=== PATIENT | male | born 1955 | race Caucasian/White ===

== ENCOUNTER 2021-04-01 08:53 | Observation (INO) | payer OTHER, SELFPAY ==
[2021-04-01] VITALS (16 sets, daily range): BP systolic 96–122; BP diastolic 52–74; PULSE 81–122; RESP 13–22; TEMP 36.4–39.2; O2SAT 87–97; BMI 32.7; BMI 32.9
--- NOTE | 2021-04-01 09:05 | EKG12_ITS ---
Test Reason : FEVER, SOB Blood Pressure : / mmHG Vent. Rate : 117 BPM Atrial Rate : 117 BPM P-R Int : 152 ms QRS Dur : 112 ms QT Int : 312 ms P-R-T Axes : 035 006 023 degrees QTc Int : 435 ms Sinus tachycardia Otherwise normal ECG Confirmed by LAURIE HERNANDEZ, NILDA ([id number]), primer expeditor and drier DEVNY ANTUNEZ ([id number]) on 04/03/2021 11:40:54 A M Referred By: ADRY Confirmed By:MEENA SULLIVAN MD
--- NOTE | 2021-04-01 09:07 | NURSING ---
NO OLD EKGS
--- NOTE | 2021-04-01 09:08 | EDS_ITS ---
HPI History of Present Illness Chief Complaint: Fever Informant: patient and spouse/S.O. Onset/Context/Timing Onset: Days Context: Gradual Onset Current Severity: Moderate Maximum Severity: Moderate Narrative Narrative: Patient presents secondary to general malaise and rigors. He reports being ill the past couple of days. He said shortness of breath with mild cough. does report a fever up into the 101 range at home. EMS reportedly had a temperature of 104. PFSH PFS Medical History Arthritis Home Medications NK 04/01/21 [History Last Taken Unknown] Allergy/AdvReac Type Severity Reaction Status Date / Time No Known Allergies Allergy Verified 04/01/21 08:54 Social History Smoking Status: Smoker, status unknown ROS ROS ED Constitutional Constitutional ED: Reports chills and fever(s) Eyes Eyes: Denies change in vision ENT ENT ED: Denies sore throat Cardiovascular Cardiovascular: Denies chest pain Respiratory/Chest Respiratory/Chest: Reports cough and dyspnea Gastrointestinal Gastrointestinal: Denies abdominal pain, diarrhea, nausea or vomiting Genitourinary Genitourinary ED: Denies dysuria Musculoskeletal Musculoskeletal: Denies back pain Integumentary Denies rash Neurologic Neurologic: Denies headache(s) or weakness Psychiatric Psychiatric: Denies anxiety or depression Endocrine Endocrinology: Denies polydipsia or polyuria Allergic/Immunologic Allergic/Immunologic ED: Denies urticaria EXAM Physical Exam Const Vital Signs: 04/01/21 08:54 04/01/21 08:58 04/01/21 10:13 Temperature 102.6 F H 102.6 F H 101.2 F H Temperature Source Oral Oral Oral Pulse Rate 120 H 122 H 109 H Respiratory Rate 20 H 20 H 17 Respiratory Effort Short of Breath Respiratory Pattern Normal Blood Pressure 122/59 H 122/59 H 104/52 L Blood Pressure Mean 80 80 69 Pulse Ox 95 94 94 Oxygen Delivery Method Room Air Room Air Room Air Oxygen Flow Rate (L/min) 04/01/21 10:54 04/01/21 10:59 04/01/21 11:00 Temperature 101.2 F H 99.8 F H Temperature Source Oral Oral Pulse Rate 103 H 101 H Respiratory Rate 20 H 20 H Respiratory Effort Respiratory Pattern Blood Pressure 103/61 108/59 L Blood Pressure Mean 75 75 Pulse Ox 90 87 95 Oxygen Delivery Method Room Air Room Air Room Air Oxygen Flow Rate (L/min) 04/01/21 12:00 04/01/21 13:00 Temperature 98.8 F 98.6 F Temperature Source Temporal Temporal Pulse Rate 90 91 Respiratory Rate 22 H 19 H Respiratory Effort Respiratory Pattern Blood Pressure 106/68 106/66 Blood Pressure Mean 80 79 Pulse Ox 94 96 Oxygen Delivery Method Venturi Mask Room Air Oxygen Flow Rate (L/min) 2 Positive well nourished and well developed General Appearance ED: well developed HEENT Reports normocephalic and head/scalp atraumatic Eyes PERRL and EOMs intact bilaterally Neck supple Chest Wall inspection of chest normal and palpation of chest normal Resp normal respiratory effort and clear to auscultation bilaterally Cardio regular rate and regular rhythm GI normal to inspection, nondistended, normoactive bowel sounds Palpation: soft Back/Spine no CVA tenderness Extremity normal to inspection Neuro oriented x3 and no sensory deficits noted Sensorium / Orientation: alert Motor Exam: strength 5/5 throughout Psych mental status grossly normal Skin no rashes or lesions noted MDM MDM MDM Narrative Medical decision making narrative: Patient is placed on quality assurance monitor final and observed. Patient's oxygen saturation does drop to 88% and is placed on nasal cannula. Lab work, urinalysis, Covid test, chest x-ray obtained. Lab Data Attestation: I reviewed the patient's lab results. Labs: Laboratory Results - last 24 hr 04/01/21 04/01/21 04/01/21 09:00 09:00 09:00 WBC 1.9 L RBC 5.13 Hgb 15.0 Hct 45.4 MCV 88.5 MCH 29.2 MCHC 33.0 RDW Std Deviation 43.5 RDW Coeff of [place] 13.2 Plt Count 127 L MPV 10.2 Immature Gran % (Auto) 1.000 H Neut % (Auto) 62.9 Lymph % (Auto) 33.0 [place] % (Auto) 2.1 Eos % (Auto) 0.5 Baso % (Auto) 0.5 Absolute Neuts (auto) 1.2 L Absolute Lymphs (auto) 0.64 L Nucleated RBC % 0 Atypical Lymphocytes 1+ D-Dimer Quant (PE/DVT) 1.74 H* Sodium 137 Potassium 3.6 Chloride 105 Carbon Dioxide 22.0 Anion Gap 10 BUN 24 H Creatinine 1.09 Estim Creat Clear Calc 75.34 Est GFR (MDRD) Af Amer 87 Est GFR (MDRD) Non-Af 72 BUN/Creatinine Ratio 22.0 H Glucose 113 H Lactic Acid Calcium 8.5 Total Bilirubin 2.40 H AST 20 ALT 37 Alkaline Phosphatase 64 Total Protein 7.2 Albumin 3.7 Globulin 3.5 Albumin/Globulin Ratio 1.1 Urine Color Urine Clarity Urine pH Ur Specific [place] Urine Protein Urine Glucose (UA) Urine Ketones Urine Occult Blood Urine Nitrite Urine Bilirubin Urine Urobilinogen Ur Leukocyte Esterase Urine RBC Urine WBC Ur Squamous Epith Cells Urine Bacteria Urine Mucus COVID-19 (YOSELYN) 04/01/21 04/01/21 04/01/21 09:00 09:50 11:45 WBC RBC Hgb Hct MCV MCH MCHC RDW Std Deviation RDW Coeff of [place] Plt Count MPV Immature Gran % (Auto) Neut % (Auto) Lymph % (Auto) [place] % (Auto) Eos % (Auto) Baso % (Auto) Absolute Neuts (auto) Absolute Lymphs (auto) Nucleated RBC % Atypical Lymphocytes D-Dimer Quant (PE/DVT) Sodium Potassium Chloride Carbon Dioxide Anion Gap BUN Creatinine Estim Creat Clear Calc Est GFR (MDRD) Af Amer Est GFR (MDRD) Non-Af BUN/Creatinine Ratio Glucose Lactic Acid 2.6 H* Calcium Total Bilirubin AST ALT Alkaline Phosphatase Total Protein Albumin Globulin Albumin/Globulin Ratio Urine Color Yellow Urine Clarity Sl. Cloudy Urine pH 6.5 Ur Specific [place] 1.005 Urine Protein 30 H Urine Glucose (UA) Normal Urine Ketones Negative Urine Occult Blood 10 H Urine Nitrite Negative Urine Bilirubin Negative Urine Urobilinogen 1 H Ur Leukocyte Esterase 500 H Urine RBC 0-5 SEEN Urine WBC 10-25 SEEN Ur Squamous Epith Cells 0 SEEN Urine Bacteria 0 SEEN Urine Mucus 0 SEEN COVID-19 (YOSELYN) Not Detected 04/01/21 13:25 WBC RBC Hgb Hct MCV MCH MCHC RDW Std Deviation RDW Coeff of [place] Plt Count MPV Immature Gran % (Auto) Neut % (Auto) Lymph % (Auto) [place] % (Auto) Eos % (Auto) Baso % (Auto) Absolute Neuts (auto) Absolute Lymphs (auto) Nucleated RBC % Atypical Lymphocytes D-Dimer Quant (PE/DVT) Sodium Potassium Chloride Carbon Dioxide Anion Gap BUN Creatinine Estim Creat Clear Calc Est GFR (MDRD) Af Amer Est GFR (MDRD) Non-Af BUN/Creatinine Ratio Glucose Lactic Acid 1.9 Calcium Total Bilirubin AST ALT Alkaline Phosphatase Total Protein Albumin Globulin Albumin/Globulin Ratio Urine Color Urine Clarity Urine pH Ur Specific [place] Urine Protein Urine Glucose (UA) Urine Ketones Urine Occult Blood Urine Nitrite Urine Bilirubin Urine Urobilinogen Ur Leukocyte Esterase Urine RBC Urine WBC Ur Squamous Epith Cells Urine Bacteria Urine Mucus COVID-19 (YOSELYN) Radiography Chest X-Ray - ED: 1 View, Read by ED Physician and Chronic Changes Diagnostic Testing: Radiology Impression Chest X-Ray 04/01/21 09:18 IMPRESSION: Normal x-ray examination of the chest. Electronically Signed: Praveen Storey MD at 9:31 EDT Tel , Service support , Chest CTA 04/01/21 09:35 IMPRESSION: Normal CTA chest examination, without a demonstrated pulmonary embolism or arterial dissection. Electronically Signed: Praveen Storey MD at 11:04 EDT Tel , Service support , EKG Initial EKG: Attestation: I personally reviewed and interpreted this EKG as follows: Interpretation: Sinus Tachycardia (Sinus tach at 117. No acute ST change.) Treatment and Re-Evaluation Comments:: Test results discussed with the patient. Rapid Covid is negative and he does get a PCR test that also returns negative. D-dimer is elevated. CTA of the chest reveals no acute findings. Urinalysis does reveal white cells but no bacteria. Culture is sent and he is given a dose of Rocephin. Patient was reluctant to be admitted to the hospital. He was taken off of oxygen and immediately dropped his sat to 87% while still lying in bed. At this point he will stay in the hospital for further treatment. I will speak with the hospitalist. Discharge Plan Triage Chief Complaint: Fever ED Provider: Kandy Torres Dx/Rx/DC Orders Clinical Impression: Hypoxia, Acute viral syndrome Prescriptions: No Action NK RF: 0 Primary Care Provider: Phil House Referrals: Phil House MD [Primary Care Provider] - Disposition Disposition: Acute Care Hospital [facility]
--- NOTE | 2021-04-01 09:18 | RAD_ITS ---
STUDY: X-RAY CHEST REASON FOR EXAM: Male, 65 years old. cough TECHNIQUE: Single AP portable view of the chest. COMPARISON: None. FINDINGS: The lungs are clear and expanded. There is no demonstrated pleural abnormality. Normal size heart. Normal mediastinum and enzo. Normal visualized pulmonary arteries. Normal visualized aortic arch and descending thoracic aorta. Normal visualized thoracic spine. Normal visualized ribs, clavicles, and shoulders. There is no demonstrated abnormality of the visualized soft tissue structures of the upper abdomen. RAD/Chest 1 View (Portable) IMPRESSION: Normal x-ray examination of the chest. Electronically Signed: Praveen Storey MD at 9:31 EDT Tel , Service support ,
[2021-04-01 09:21] LABS: Absolute Lymphocyte Count 0.64 X10^3/uL (0.83-4.51); Absolute Neutrophil Count 1.2 X10^3/uL (2.0-7.7); Basophil# 0.01 X10^3/uL; Basophil% 0.5 % (0-1); Eosinophil# 0.01 X10^3/uL; Eosinophils% 0.5 % (0-5); Hematocrit 45.4 % (40-54); Lymphocyte # 0.64 X10^3/ul (0.83-4.51); Mean Corpuscular Hgb 29.2 pg (27.0-32.0); Mean Corpuscular Volume 88.5 fL (80-94); Mean Platelet Vol. 10.2 fl (6.2-12.0); Monocyte# 0.04 X10^3/uL; Monocyte% 2.1 % (0-10); NRBC Flagged by Analyzer 0 % (0-5); Neutrophil # 1.22 X10^3/uL (2.7-7.7); Neutrophil % 62.9 % (47-70); POSITIVE MORPHOLOGY YES; Platelet Count 127 K/mm3 (150-450); RBC Distribution Width CV 13.2 % (11.6-14.6); RBC Distribution Width SD 43.5 fl (35.1-43.9); Red Blood Count 5.13 M/mm3 (4.6-6.2); White Blood Count 1.9 K/mm3 (4.4-11.0)
[2021-04-01 09:22] LABS: Differential Indicated SCAN CRITERIA MET
[2021-04-01 09:31] LABS: D-Dimer Quantitative (DVT/PE) 1.74 FEU/ug/m (0.27-0.49)
[2021-04-01 09:33] LABS: ALB/GLOB Ratio 1.1 RATIO (0.9-2.4); AST(SGOT) 20 U/L (15-37); Alanine Aminotransfer ALT/SGPT 37 U/L (16-61); Albumin, Serum 3.7 g/dL (3.2-5.0); Alkaline Phosphatase 64 U/L (45-117); Anion Gap 10 (5-15); BUN 24 mg/dL (7-18); Calcium,Total 8.5 mg/dL (8.5-10.1); Chloride 105 mmol/L (98-107); Creatinine, Serum 1.09 mg/dL (0.70-1.30); EST Glomerular Filtration Rate 72 mL/min (>60); Est Glom Filt Rate - Afr Amer 87 mL/min (>60); Estimated Creatinine Clearance 75.34 ml/min; Globulin 3.5 g/dL (2.2-4.2); Glucose 113 mg/dL (74-106); Potassium 3.6 mmol/L (3.5-5.1); Protein, Total 7.2 g/dL (6.4-8.2); Sodium Level 137 mmol/L (136-145)
--- NOTE | 2021-04-01 09:35 | CT_ITS ---
STUDY: CTA CHEST REASON FOR EXAM: Male, 65 years old. sob RADIATION DOSAGE (If Supplied By Facility): CTDIvol = ( 16.17 ) mGy, DLP = ( 600.35 ) mGycm TECHNIQUE: The examination was performed with the intravenous administration of IV 100mL Isovue-370. Post-processing of the angiographic images was performed, with multiplanar reformation and 3D reconstruction. Individualized dose optimization techniques were used for this CT. COMPARISON: Chest x-ray earlier today FINDINGS: Normal enhancement of the main pulmonary artery and right and left pulmonary arteries. Normal enhancement of the bilateral peripheral pulmonary arteries. There is no demonstrated pulmonary embolism. Normal thoracic aorta and visualized great vessels. There is no demonstrated aortic dissection. Normal heart and pericardium. Normal mediastinum. Normal hilar regions. Normal visualized trachea and bronchi. The lungs are well expanded. Normal pulmonary parenchyma. Normal pleura. Normal chest wall structures. Normal osseous structures. Normal visualized upper abdomen. CT/CTA Chest W/WO Contrast IMPRESSION: Normal CTA chest examination, without a demonstrated pulmonary embolism or arterial dissection. Electronically Signed: Praveen Storey MD at 11:04 EDT Tel , Service support ,
--- NOTE | 2021-04-01 09:35 | ED.RN ---
MD and nurse notified of d-dimer of 1.74.
[2021-04-01 09:38] LABS: Atypical Lymphocyte 1+ %
[2021-04-01 10:16] LABS: Lactic Acid 2.6 mmol/L (0.4-1.9)
[2021-04-01 11:52] LABS: Bacteria 0 SEEN /hpf (None Seen); Mucous, Urine 0 SEEN /hpf (<or=2+); Squamous Epithelial Cells - UA 0 SEEN /hpf (0-5)
[2021-04-01 11:53] LABS: Color, Urine Yellow (Yellow); Glucose, Dipstick Normal (Normal); Ketone-Dipstick Negative (Negative); Leukocyte Esterase-Dipstick 500 /ul (Negative); Nitrite-Dipstick Negative (Negative); Occult Blood-Urine 10 /ul (Negative); Protein-Dipstick 30 mg/dl (Negative); Specific Gravity, Urine 1.005 (1.002-1.030); Urine Bilirubin Dipstick Negative (Negative); Urine Clarity Sl. Cloudy (Clear); Urine Urobilinogen 1 mg/dl (Normal); Urine pH 6.5 (5.0 - 8.0)
[2021-04-01 12:03] LABS: Red Blood Cells-Urine 0-5 SEEN /hpf (0-5); White Blood Cells 10-25 SEEN /hpf (0-5)
[2021-04-01 13:10] LABS: Reflex Lactate? Y
[2021-04-01] MEDS: Ceftriaxone 1 GM/50 ML BAG IV (13:17)
[2021-04-01] MEDS: 0.9% Normal Saline 1,000 ML 999 ML IV (13:20)
[2021-04-01 14:00] LABS: Lactic Acid 1.9 mmol/L (0.4-1.9)
--- NOTE | 2021-04-01 14:28 | ED.RN ---
O2 TURNED OFF WHILE PT RESTING IN BED, SPO2 DROPPED TO 87% ON ROOM AIR WHILE PT RESTING IN BED. MD EDWARD.
--- NOTE | 2021-04-01 14:55 | HP.PCM.HOS_ITS ---
HPI - General General Date of Admission: 04/01/21 HPI Narrative MAIA ESTRADA, is a 65 M with a PMH as outlined who presents via the Ed on 04/01/2021 with a complaint of generalised malaise and rigors over the past few days, with associated fever and shortness of breath with a mild cough. He also complained of burning and pain with urination. When EMS saw him, temperature was 104F, but had come down to 102.4F. Patient was short of breath, and was hypoxic with sats dropping down to the 80s. Review of systems was otherwise negative. He had a rapid Covid test which was negative and PCR test was also negative. D- dimer was elevated but CT of the chest was negative for any PE. Labs showed hemoglobin of 15 with WBC of 1.9 and platelets of 127 with lymphopenia. Chemistry showed sodium of 137 and chloride of 105. Total bilirubin was 2.4. UA showed leukocyte esterase of 500 and WBC of 10-25 but no bacteria. Respiratory panel was pending. He has been admitted for acute viral syndrome with hypoxia as well as UTI. [facility] Medical History (Updated 04/01/21 @ 14:[address] Kandy Torres MD) Arthritis Home Medications acetaminophen [Tylenol Extra Strength] 1,000 mg PO DAILY PRN 04/01/21 [History Last Taken 04/01/21] cyanocobalamin (vitamin B-12) 1,000 mcg PO DAILY 04/01/21 [History Last Taken 04/01/21] glucos sul [id number] [Glucosamine Chondroitin] 1 cap PO DAILY 04/01/21 [History Last Taken 04/01/21] ibuprofen 400 mg PO DAILY PRN 04/01/21 [History Last Taken 04/01/21] turmeric root extract 500 mg PO DAILY 04/01/21 [History Last Taken 04/01/21] Allergy/AdvReac Type Severity Reaction Status Date / Time No Known Allergies Allergy Verified 04/01/21 08:54 Surgical History (Updated 04/01/21 @ 17:18 by Casandra Laboy) History of carpal tunnel release of both wrists Social History Smoking Status: Never smoker ROS Constitutional Constitutional: Reports anorexia, chills, fatigue, fever(s) and malaise; Denies change in weight Eyes Eyes: Denies blurry vision ENT HEENT: Reports abnormal hearing and nasal congestion; Denies dysphagia, headache(s) or nasal discharge Cardiovascular Cardiovascular: Denies chest pain, dyspnea on exertion, lightheadedness, orthopnea, palpitations, paroxysmal nocturnal dyspnea or rapid heart rate Respiratory/Chest Respiratory/Chest: Reports dyspnea, shortness of breath at rest and shortness of breath with exertion; Denies cough, excessive phlegm production, hemoptysis, productive cough or wheezing Gastrointestinal Gastrointestinal: Denies abdominal pain, coffee ground emesis, constipation, diarrhea, dyspepsia, nausea or vomiting Genitourinary Genitourinary: Denies burning urination Musculoskeletal Musculoskeletal: Denies arthralgias, joint pain, joint stiffness or joint swelling Neurologic Neurologic: Denies abnormal speech, confusion, dizziness, focal weakness, headache(s), numbness or seizure-like activity Psychiatric Psychiatric: Denies anxiety Endocrine Endocrinology: Denies change in body appearance Hematologic/Lymphatic Hematologic/Lymphatic: Denies anemia Vital Signs Vital Signs Vital Signs: 04/01/21 08:54 04/01/21 08:58 04/01/21 10:13 Temperature 102.6 F H 102.6 F H 101.2 F H Temperature Source Oral Oral Oral Pulse Rate 120 H 122 H 109 H Respiratory Rate 20 H 20 H 17 Respiratory Effort Short of Breath Respiratory Pattern Normal Blood Pressure 122/59 H 122/59 H 104/52 L Blood Pressure Mean 80 80 69 Pulse Ox 95 94 94 Oxygen Delivery Method Room Air Room Air Room Air Oxygen Flow Rate (L/min) 04/01/21 10:54 04/01/21 10:59 04/01/21 11:00 Temperature 101.2 F H 99.8 F H Temperature Source Oral Oral Pulse Rate 103 H 101 H Respiratory Rate 20 H 20 H Respiratory Effort Respiratory Pattern Blood Pressure 103/61 108/59 L Blood Pressure Mean 75 75 Pulse Ox 90 87 95 Oxygen Delivery Method Room Air Room Air Room Air Oxygen Flow Rate (L/min) 04/01/21 12:00 04/01/21 13:00 04/01/21 14:00 Temperature 98.8 F 98.6 F 98.8 F Temperature Source Temporal Temporal Temporal Pulse Rate 90 91 85 Respiratory Rate 22 H 19 H 19 H Respiratory Effort Respiratory Pattern Blood Pressure 106/68 106/66 109/74 Blood Pressure Mean 80 79 85 Pulse Ox 94 96 96 Oxygen Delivery Method Venturi Mask Room Air Nasal Cannula Oxygen Flow Rate (L/min) 2 2 Physical Exam Const alert and oriented x3 General Appearance: cooperative Orientation / Consciousness: lethargic HEENT head/scalp atraumatic and hearing grossly normal bilaterally HEENT Narrative: dry mucosal membranes Eyes PERRL, EOMs intact bilaterally and conjunctivae normal Neck no lymphadenopathy, supple and no JVD Resp normal respiratory effort, no retractions and no use of accessory muscles Resp Narrative: diminished breath sounds bibasally, no wheezes or crackles. Cardio regular rate, regular rhythm, S1 normal heart sound and S2 normal heart sound GI normal to inspection, nondistended, normoactive bowel sounds, soft to palpation, non-tender and non-distended Extremity normal to inspection, full ROM and no clubbing, cyanosis or edema Peripheral Pulses: Yes pulses 2+ throughout Skin no rashes or lesions noted Neuro oriented x3 Sensorium / Orientation: awake and alert Psych affect normal Lab / Micro Data Result Diagrams: 04/01/21 09:00 04/01/21 09:00 Labs: Laboratory Results - last 24 hr 04/01/21 04/01/21 04/01/21 09:00 09:00 09:00 WBC 1.9 L RBC 5.13 Hgb 15.0 Hct 45.4 MCV 88.5 MCH 29.2 MCHC 33.0 RDW Std Deviation 43.5 RDW Coeff of [place] 13.2 Plt Count 127 L MPV 10.2 Immature Gran % (Auto) 1.000 H Neut % (Auto) 62.9 Lymph % (Auto) 33.0 [place] % (Auto) 2.1 Eos % (Auto) 0.5 Baso % (Auto) 0.5 Absolute Neuts (auto) 1.2 L Absolute Lymphs (auto) 0.64 L Nucleated RBC % 0 Atypical Lymphocytes 1+ D-Dimer Quant (PE/DVT) 1.74 H* Sodium 137 Potassium 3.6 Chloride 105 Carbon Dioxide 22.0 Anion Gap 10 BUN 24 H Creatinine 1.09 Estim Creat Clear Calc 75.34 Est GFR (MDRD) Af Amer 87 Est GFR (MDRD) Non-Af 72 BUN/Creatinine Ratio 22.0 H Glucose 113 H Lactic Acid Calcium 8.5 Total Bilirubin 2.40 H AST 20 ALT 37 Alkaline Phosphatase 64 Total Protein 7.2 Albumin 3.7 Globulin 3.5 Albumin/Globulin Ratio 1.1 Urine Color Urine Clarity Urine pH Ur Specific [place] Urine Protein Urine Glucose (UA) Urine Ketones Urine Occult Blood Urine Nitrite Urine Bilirubin Urine Urobilinogen Ur Leukocyte Esterase Urine RBC Urine WBC Ur Squamous Epith Cells Urine Bacteria Urine Mucus COVID-19 (YOSELYN) 04/01/21 04/01/21 04/01/21 09:00 09:50 11:45 WBC RBC Hgb Hct MCV MCH MCHC RDW Std Deviation RDW Coeff of [place] Plt Count MPV Immature Gran % (Auto) Neut % (Auto) Lymph % (Auto) [place] % (Auto) Eos % (Auto) Baso % (Auto) Absolute Neuts (auto) Absolute Lymphs (auto) Nucleated RBC % Atypical Lymphocytes D-Dimer Quant (PE/DVT) Sodium Potassium Chloride Carbon Dioxide Anion Gap BUN Creatinine Estim Creat Clear Calc Est GFR (MDRD) Af Amer Est GFR (MDRD) Non-Af BUN/Creatinine Ratio Glucose Lactic Acid 2.6 H* Calcium Total Bilirubin AST ALT Alkaline Phosphatase Total Protein Albumin Globulin Albumin/Globulin Ratio Urine Color Yellow Urine Clarity Sl. Cloudy Urine pH 6.5 Ur Specific [place] 1.005 Urine Protein 30 H Urine Glucose (UA) Normal Urine Ketones Negative Urine Occult Blood 10 H Urine Nitrite Negative Urine Bilirubin Negative Urine Urobilinogen 1 H Ur Leukocyte Esterase 500 H Urine RBC 0-5 SEEN Urine WBC 10-25 SEEN Ur Squamous Epith Cells 0 SEEN Urine Bacteria 0 SEEN Urine Mucus 0 SEEN COVID-19 (YOSELYN) Not Detected 04/01/21 13:25 WBC RBC Hgb Hct MCV MCH MCHC RDW Std Deviation RDW Coeff of [place] Plt Count MPV Immature Gran % (Auto) Neut % (Auto) Lymph % (Auto) [place] % (Auto) Eos % (Auto) Baso % (Auto) Absolute Neuts (auto) Absolute Lymphs (auto) Nucleated RBC % Atypical Lymphocytes D-Dimer Quant (PE/DVT) Sodium Potassium Chloride Carbon Dioxide Anion Gap BUN Creatinine Estim Creat Clear Calc Est GFR (MDRD) Af Amer Est GFR (MDRD) Non-Af BUN/Creatinine Ratio Glucose Lactic Acid 1.9 Calcium Total Bilirubin AST ALT Alkaline Phosphatase Total Protein Albumin Globulin Albumin/Globulin Ratio Urine Color Urine Clarity Urine pH Ur Specific [place] Urine Protein Urine Glucose (UA) Urine Ketones Urine Occult Blood Urine Nitrite Urine Bilirubin Urine Urobilinogen Ur Leukocyte Esterase Urine RBC Urine WBC Ur Squamous Epith Cells Urine Bacteria Urine Mucus COVID-19 (YOSELYN) Micro: Microbiology 04/01/21 09:00 SARS-CoV-2 Antigen (Rapid) - Final Interface Orders Radiology Impression Chest X-Ray 04/01/21 09:18 IMPRESSION: Normal x-ray examination of the chest. Electronically Signed: Praveen Storey MD at 9:31 EDT Tel , Service support , Chest CTA 04/01/21 09:35 IMPRESSION: Normal CTA chest examination, without a demonstrated pulmonary embolism or arterial dissection. Electronically Signed: Praveen Storey MD at 11:04 EDT Tel , Service support , Assessment & Plan Assessment/Plan (1) Hypoxia: (2) Acute viral syndrome: PLAN: #Acute hypoxic respiratory insufficiency due to acute viral syndrome * Both Covid PCR and rapid Covid screen were negative. Clinically however patient symptoms do not really seem like Covid. * Will therefore put in Covid isolation until we get respiratory panel back, and he is also evaluated by ID * Titrate oxygen to maintain saturation above 90% * Breathing treatments with bronchodilators. * respiratory panel was also negative. * #Acute viral respiratory illness * As above * #UTI * UA showed no bacteria, but showed 10-25 wbc and also showed elevated leucocyte esterase * will start IV ceftriaxone * start IV ceftriaxone. * Get wound and blood cultures * #Lactic acidosis: Likely due to dehydration. Lactic acid was 2.6 but trended down to normal. Hydrate with IVF #Elevated D-dimer: CT of the chest was however negative. CTA of the chest also showed well-expanded lungs with normal pulmonary parenchyma * * DVT prophylaxis: Lovenox CODE STATUS: full code * Patient and counseled about different types of CODE STATUS including full code, DNR CCA and DNR CCA. Patient elects to be full code. * Total [id number] time 17 minutes.
--- NOTE | 2021-04-01 15:58 | NURSING ---
CV ICU 203
[2021-04-01] MEDS: 0.9% Normal Saline 1,000 ML 125 ML IV (17:23)
[2021-04-01] MEDS: Ipratropium/Albuterol Sulfate 3 ML AMPUL.NEB INHALATION (18:49)
[2021-04-02] VITALS (16 sets, daily range): BP systolic 103–137; BP diastolic 60–85; PULSE 73–97; RESP 14–20; TEMP 36.5–37.1; O2SAT 91–100
[2021-04-02] MEDS: 0.9% Normal Saline 1,000 ML 125 ML IV (01:28)
[2021-04-02 04:39] LABS: Absolute Lymphocyte Count 1.54 X10^3/uL (0.83-4.51); Absolute Neutrophil Count 10.1 X10^3/uL (2.0-7.7); Basophil# 0.05 X10^3/uL; Basophil% 0.4 % (0-1); Eosinophil# 0.16 X10^3/uL; Eosinophils% 1.3 % (0-5); Hematocrit 37.9 % (40-54); Hemoglobin 12.5 g/dL (13.0-16.5); Lymphocyte # 1.54 X10^3/ul (0.83-4.51); Lymphocyte % 12.1 % (19-41); Mean Corpuscular Hgb 29.3 pg (27.0-32.0); Mean Corpuscular Volume 88.8 fL (80-94); Mean Platelet Vol. 10.2 fl (6.2-12.0); Monocyte# 0.83 X10^3/uL; Monocyte% 6.5 % (0-10); NRBC Flagged by Analyzer 0 % (0-5); Neutrophil # 10.05 X10^3/uL (2.7-7.7); Neutrophil % 79.1 % (47-70); Platelet Count 114 K/mm3 (150-450); RBC Distribution Width CV 13.9 % (11.6-14.6); RBC Distribution Width SD 45.5 fl (35.1-43.9); Red Blood Count 4.27 M/mm3 (4.6-6.2); White Blood Count 12.7 K/mm3 (4.4-11.0)
[2021-04-02 04:54] LABS: AST(SGOT) 27 U/L (15-37); Alanine Aminotransfer ALT/SGPT 34 U/L (16-61); Albumin, Serum 2.9 g/dL (3.2-5.0); Alkaline Phosphatase 44 U/L (45-117); Anion Gap 6 (5-15); BUN 20 mg/dL (7-18); BUN/Creat Ratio 23.4 RATIO (10-20); Calcium,Total 7.7 mg/dL (8.5-10.1); Chloride 108 mmol/L (98-107); Creatinine, Serum 0.86 mg/dL (0.70-1.30); EST Glomerular Filtration Rate 95 mL/min (>60); Est Glom Filt Rate - Afr Amer 115 mL/min (>60); Estimated Creatinine Clearance 92.74 ml/min; Globulin 2.9 g/dL (2.2-4.2); Glucose 85 mg/dL (74-106); Potassium 3.3 mmol/L (3.5-5.1); Protein, Total 5.8 g/dL (6.4-8.2); Sodium Level 140 mmol/L (136-145)
[2021-04-02] MEDS: Ipratropium/Albuterol Sulfate 3 ML AMPUL.NEB INHALATION ×4 (06:53→19:09)
[2021-04-02 07:46] LABS: Phosphorus 2.2 mg/dL (2.5-4.9)
--- NOTE | 2021-04-02 08:14 | PCM.DC ---
Discharge Instructions Diet Discharge Diet: Low fat / Low cholesterol and 2000 mg Sodium Diet Activity Discharge Activity: May Not Drive (for 1 week until sees PCP) Weight Bearing Status: Weight bearing as tolerated Dressing / Incision Call your doctor if you observe: Fever of 101 or Higher, Numbness or Tingling, Change in Color, Inability to urinate, Inability to have a bowel movement, Shortness of breath, Dizziness, Fainting spells, Swelling in the ankles, Chest pain, Prolonged hiccupping and Increased palpitations (irregular heartbeat) Follow Up Care Test Results: Test results from this visit will be discussed in further detail at your follow-up appointment, if applicable. Discharge Plan Admission Admit Date/Time: 04/01/21 15:11 Primary Reason for Your Visit: Acute viral syndrome, UTI Attending Provider: Jose Fu Primary Care Provider: Phil House Instructions Patient Instructions: ED Viral Syndrome (Adult) Discharge Orders/Prescriptions Prescriptions: New tamsulosin 0.4 mg Capsule 0.4 mg PO DAILY@1730 Qty: 30 RF: 1 Continued cyanocobalamin (vitamin B-12) 1,000 mcg Tablet 1,000 mcg PO DAILY RF: 0 acetaminophen [Tylenol Extra Strength] 500 mg Tablet 1,000 mg PO DAILY PRN (Reason: PAIN AND FEVER) RF: 0 ibuprofen 200 mg Tablet 400 mg PO DAILY PRN (Reason: PAIN AND FEVER) RF: 0 turmeric root extract 500 mg Capsule 500 mg PO DAILY RF: 0 Glucosamine Chondroitin 550-30-1 mg Capsule 1 cap PO DAILY RF: 0 Referrals / Follow Up: Phil House MD [Primary Care Provider] - Disposition Disposition (needs filled in before D/C Order can be placed): Home, self care
[2021-04-02] MEDS: Potassium Chloride Oral Tablet 20 MEQ 40 MEQ PO (08:21)
[2021-04-02] MEDS: Acetaminophen 500 MG Tablet 1000 MG PO ×3 (08:21→21:40)
--- NOTE | 2021-04-02 08:22 | PCM.PN.HOSP ---
Subjective Subjective Seen and examined. Patient admitted with fever, chills, T-max 102.6 Fahrenheit in ED. Patient states he has mild cough other than no shortness of breath, chest pain or tightness. His dysuria/burning micturition at home is getting better. Both blood cultures prelim positive of gram-negative rods. Objective Data Objective Data Vital Signs: Vital Signs Temp Pulse Resp BP Pulse Ox 97.8 F 75 16 104/65 100 04/02/21 04:10 04/02/21 06:57 04/02/21 06:57 04/02/21 04:10 04/02/21 06:57 Oxygen Flow Rate (L/min) 2 Oxygen Delivery Method Room Air Weight: 243 lb Body Mass Index (BMI) 32.9 Intake & Output: Intake and Output for Last 24 Hours 03/31/21 04/01/21 04/02/21 23:59 23:59 23:59 Intake Total 1050 / 1350 1300 / 1300 Output Total 850 / 850 Balance 1050 / 900 450 / 450 Lab / Micro Data Result Diagrams: 04/02/21 04:20 04/02/21 04:20 Labs: Laboratory Results - last 24 hr 04/01/21 04/01/21 04/01/21 09:00 09:00 09:00 WBC 1.9 L RBC 5.13 Hgb 15.0 Hct 45.4 MCV 88.5 MCH 29.2 MCHC 33.0 RDW Std Deviation 43.5 RDW Coeff of [place] 13.2 Plt Count 127 L MPV 10.2 Immature Gran % (Auto) 1.000 H Neut % (Auto) 62.9 Lymph % (Auto) 33.0 [place] % (Auto) 2.1 Eos % (Auto) 0.5 Baso % (Auto) 0.5 Absolute Neuts (auto) 1.2 L Absolute Lymphs (auto) 0.64 L Nucleated RBC % 0 Atypical Lymphocytes 1+ D-Dimer Quant (PE/DVT) 1.74 H* Sodium 137 Potassium 3.6 Chloride 105 Carbon Dioxide 22.0 Anion Gap 10 BUN 24 H Creatinine 1.09 Estim Creat Clear Calc 75.34 Est GFR (MDRD) Af Amer 87 Est GFR (MDRD) Non-Af 72 BUN/Creatinine Ratio 22.0 H Glucose 113 H Lactic Acid Calcium 8.5 Phosphorus Magnesium Total Bilirubin 2.40 H AST 20 ALT 37 Alkaline Phosphatase 64 Troponin I Total Protein 7.2 Albumin 3.7 Globulin 3.5 Albumin/Globulin Ratio 1.1 Urine Color Urine Clarity Urine pH Ur Specific [place] Urine Protein Urine Glucose (UA) Urine Ketones Urine Occult Blood Urine Nitrite Urine Bilirubin Urine Urobilinogen Ur Leukocyte Esterase Urine RBC Urine WBC Ur Squamous Epith Cells Urine Bacteria Urine Mucus COVID-19 (YOSELYN) 04/01/21 04/01/21 04/01/21 09:00 09:50 11:45 WBC RBC Hgb Hct MCV MCH MCHC RDW Std Deviation RDW Coeff of [place] Plt Count MPV Immature Gran % (Auto) Neut % (Auto) Lymph % (Auto) [place] % (Auto) Eos % (Auto) Baso % (Auto) Absolute Neuts (auto) Absolute Lymphs (auto) Nucleated RBC % Atypical Lymphocytes D-Dimer Quant (PE/DVT) Sodium Potassium Chloride Carbon Dioxide Anion Gap BUN Creatinine Estim Creat Clear Calc Est GFR (MDRD) Af Amer Est GFR (MDRD) Non-Af BUN/Creatinine Ratio Glucose Lactic Acid 2.6 H* Calcium Phosphorus Magnesium Total Bilirubin AST ALT Alkaline Phosphatase Troponin I Total Protein Albumin Globulin Albumin/Globulin Ratio Urine Color Yellow Urine Clarity Sl. Cloudy Urine pH 6.5 Ur Specific [place] 1.005 Urine Protein 30 H Urine Glucose (UA) Normal Urine Ketones Negative Urine Occult Blood 10 H Urine Nitrite Negative Urine Bilirubin Negative Urine Urobilinogen 1 H Ur Leukocyte Esterase 500 H Urine RBC 0-5 SEEN Urine WBC 10-25 SEEN Ur Squamous Epith Cells 0 SEEN Urine Bacteria 0 SEEN Urine Mucus 0 SEEN COVID-19 (YOSELYN) Not Detected 04/01/21 04/01/21 04/01/21 13:25 17:00 21:00 WBC RBC Hgb Hct MCV MCH MCHC RDW Std Deviation RDW Coeff of [place] Plt Count MPV Immature Gran % (Auto) Neut % (Auto) Lymph % (Auto) [place] % (Auto) Eos % (Auto) Baso % (Auto) Absolute Neuts (auto) Absolute Lymphs (auto) Nucleated RBC % Atypical Lymphocytes D-Dimer Quant (PE/DVT) Sodium Potassium Chloride Carbon Dioxide Anion Gap BUN Creatinine Estim Creat Clear Calc Est GFR (MDRD) Af Amer Est GFR (MDRD) Non-Af BUN/Creatinine Ratio Glucose Lactic Acid 1.9 Calcium Phosphorus Magnesium Total Bilirubin AST ALT Alkaline Phosphatase Troponin I 0.035 0.031 Total Protein Albumin Globulin Albumin/Globulin Ratio Urine Color Urine Clarity Urine pH Ur Specific [place] Urine Protein Urine Glucose (UA) Urine Ketones Urine Occult Blood Urine Nitrite Urine Bilirubin Urine Urobilinogen Ur Leukocyte Esterase Urine RBC Urine WBC Ur Squamous Epith Cells Urine Bacteria Urine Mucus COVID-19 (YOSELYN) 04/02/21 04/02/21 04/02/21 00:00 04:20 04:20 WBC 12.7 H RBC 4.27 L Hgb 12.5 L Hct 37.9 L MCV 88.8 MCH 29.3 MCHC 33.0 RDW Std Deviation 45.5 H RDW Coeff of [place] 13.9 Plt Count 114 L MPV 10.2 Immature Gran % (Auto) 0.600 Neut % (Auto) 79.1 H Lymph % (Auto) 12.1 L [place] % (Auto) 6.5 Eos % (Auto) 1.3 Baso % (Auto) 0.4 Absolute Neuts (auto) 10.1 H Absolute Lymphs (auto) 1.54 Nucleated RBC % 0 Atypical Lymphocytes D-Dimer Quant (PE/DVT) Sodium 140 Potassium 3.3 L Chloride 108 H Carbon Dioxide 26.0 Anion Gap 6 BUN 20 H Creatinine 0.86 Estim Creat Clear Calc 92.74 Est GFR (MDRD) Af Amer 115 Est GFR (MDRD) Non-Af 95 BUN/Creatinine Ratio 23.4 H Glucose 85 Lactic Acid Calcium 7.7 L Phosphorus Magnesium Total Bilirubin 0.70 AST 27 ALT 34 Alkaline Phosphatase 44 L Troponin I 0.032 Total Protein 5.8 L Albumin 2.9 L Globulin 2.9 Albumin/Globulin Ratio 1.0 Urine Color Urine Clarity Urine pH Ur Specific [place] Urine Protein Urine Glucose (UA) Urine Ketones Urine Occult Blood Urine Nitrite Urine Bilirubin Urine Urobilinogen Ur Leukocyte Esterase Urine RBC Urine WBC Ur Squamous Epith Cells Urine Bacteria Urine Mucus COVID-19 (YOSELYN) 04/02/21 04:20 WBC RBC Hgb Hct MCV MCH MCHC RDW Std Deviation RDW Coeff of [place] Plt Count MPV Immature Gran % (Auto) Neut % (Auto) Lymph % (Auto) [place] % (Auto) Eos % (Auto) Baso % (Auto) Absolute Neuts (auto) Absolute Lymphs (auto) Nucleated RBC % Atypical Lymphocytes D-Dimer Quant (PE/DVT) Sodium Potassium Chloride Carbon Dioxide Anion Gap BUN Creatinine Estim Creat Clear Calc Est GFR (MDRD) Af Amer Est GFR (MDRD) Non-Af BUN/Creatinine Ratio Glucose Lactic Acid Calcium Phosphorus 2.2 L Magnesium 2.0 Total Bilirubin AST ALT Alkaline Phosphatase Troponin I Total Protein Albumin Globulin Albumin/Globulin Ratio Urine Color Urine Clarity Urine pH Ur Specific [place] Urine Protein Urine Glucose (UA) Urine Ketones Urine Occult Blood Urine Nitrite Urine Bilirubin Urine Urobilinogen Ur Leukocyte Esterase Urine RBC Urine WBC Ur Squamous Epith Cells Urine Bacteria Urine Mucus COVID-19 (YOSELYN) Micro: Microbiology 04/01/21 09:10 Blood Culture (Wb) - Right Hand Blood Culture - Preliminary 04/01/21 09:00 Blood Culture (Wb) - Left Wrist Blood Culture - Preliminary 04/01/21 12:48 Mucosa - Nose Respiratory Panel (PCR) - Final 04/01/21 09:00 Interface Orders SARS-CoV-2 Antigen (Rapid) - Final Radiography Diagnostic Testing: Radiology Impression Chest X-Ray 04/01/21 09:18 IMPRESSION: Normal x-ray examination of the chest. Electronically Signed: Praveen Storey MD at 9:31 EDT Tel , Service support , Chest CTA 04/01/21 09:35 IMPRESSION: Normal CTA chest examination, without a demonstrated pulmonary embolism or arterial dissection. Electronically Signed: Praveen Storey MD at 11:04 EDT Tel , Service support , Physical Exam Narrative General: Alert, Oriented x3, Cooperative HEENT: Atraumatic, PERRLA, EOMI, Normocephalic Oral: No Gingival or Mucosal Lesions/ Ulcerations Neck: Supple, No JVD, Negative Carotid Bruits Lungs: Air entry diminished in bilateral lung bases. No crepitation/rhonchi Cardiovascular: Regular rate, Regular Rhythm, Normal S1, Normal S2, No murmurs Abdomen: Bowel Sounds Present, Soft, Non Tender, Non-Distended : Dysuria. Intermittent dribbling, hesitancy, increased frequency. No renal angle tenderness. No suprapubic tenderness. Extremities: No edema, Capillary Refill Less than 3 Seconds Skin: No rashes, No breakdown Musculoskeletal: No Tenderness to Palpation of Joints or Extremities Neurological: Cranial nerves II-XII grossly intact, Deep Tendon Reflexes 2+/4 and Symmetrical, Neuro grossly intact Psych/Mental Status: Normal Affect, Appropriate. Assessment & Plan Assessment/Plan (1) Acute viral syndrome: PLAN: This 65-year-old gentleman who came to ER with high fever 104 Fahrenheit, hypoxic pulse ox 80s on room air, short of breath. Patient also has UTI symptoms. 1. Sepsis due to gram-negative chente UTI with bacteremia: Both blood cultures positive of gram-negative chente. Urine culture pending. Follow-up cultures. ID is consulted. Patient said he might have a UTI in the past. Lactic acidosis normal. 2. Possible BPH: Patient has chronic symptoms of BPH including increased hesitancy, frequency, sometimes dribbling, intermittent micturition, dysuria. Kidney and bladder ultrasound ordered. Denies previous history of kidney stone, stricture, tumor or mass or urology procedure. Started on Flomax. 3. Acute hypoxia respiratory insufficiency probably due to acute viral syndrome: Patient responded well with bronchodilator. Respiratory panel, Covid PCR and rapid tests are negative. Elevated D-dimer but CTA chest negative for thromboembolism and normal pulmonary parenchyma. Hypoxia/respiratory insufficiency resolved. 4. DVT prophylaxis: Lovenox. Full code. Visit Charges Inpatient E&M: 92151 Subs Hosp L2
--- NOTE | 2021-04-02 08:32 | US_ITS ---
STUDY: RENAL ULTRASOUND - COMPLETE REASON FOR EXAM: Male, 65 years old. UTI with bacteremia. TECHNIQUE: Ultrasound evaluation of the kidneys was performed with real-time and static hamilton-scale imaging. COMPARISON: None. FINDINGS: RIGHT KIDNEY: Normal location of the right kidney, which is normal in size. The right kidney measures 12.4 cm. There is a normal cortex of the right kidney. The renal cortex measures 1.4 cm. There is no right renal mass or cyst. There are no right renal calculi. There is no right hydronephrosis. DISTAL RIGHT URETER: There is non-visualization of the distal right ureter. There is no demonstrated right ureterovesical junction calculus. There is no demonstrated right ureteral jet. LEFT KIDNEY: Normal location of the left kidney, which is normal in size. The left kidney measures 12.0 cm. There is a normal cortex of the left kidney. The renal cortex measures 1.3 cm. There is a 1.3 x 1.2 x 1.1 cm simple cyst in the lower pole cortex. There are no left renal calculi. There is no left hydronephrosis. DISTAL LEFT URETER: There is non-visualization of the distal left ureter. There is no demonstrated left ureterovesical junction calculus. There is no demonstrated left ureteral jet. BLADDER: The distended urinary bladder has a volume of 154 ml. There is a normal wall thickness of the distended urinary bladder. There is no demonstrated mass within the urinary bladder. There are no demonstrated bladder calculi. The prostate appears enlarged measuring 5 x 5.1 x 5.5 cm consistent with a volume of 72 mL US/Kidney and Bladder IMPRESSION: 1. Small left renal cyst. Otherwise normal ultrasound of the kidneys and urinary bladder. 2. Enlarged prostate. Electronically Signed: Raphael Barillas DO at 19:14 EDT Tel [phone], Service support ,
[2021-04-02] MEDS: Enoxaparin 40 MG/0.4 ML Syringe SC (10:15)
[2021-04-02] MEDS: Cyanocobalamin 500 MCG Tablet 1000 MCG PO (10:15)
[2021-04-02] MEDS: Tamsulosin HCl 0.4 MG Capsule PO ×2 (10:15→16:23)
[2021-04-02] MEDS: Ceftriaxone 1 GM/50 ML BAG IV ×2 (10:19→12:19)
--- NOTE | 2021-04-02 15:12 | PCM.CONS.GEN ---
Assessment & Plan Assessment/Plan (1) Sepsis: (2) Bacteremia due to Gram-negative bacteria: PLAN: sepsis due to GNR bacteremia from suspected urinary source - renal u/s pending. On ceftriaxone, will increase dose. Low suspicion for covid, will d/c isolation. Recommended he and his get covid vaccination. Feeling better. Will follow, thank you, d/w nursing HPI Consult Data Date of Consult: 04/02/21 HPI Narrative HPI Narrative: MAIA ESTRADA, is a 65 M with h/o BPH, rare uti, presented with acute onset fever, chills, shakes. Earlier in the week, noted some dysuria and increased urinary frequency. No straining to urinate, no abd pain, no flank pain, no n/v/d, no cough or SOB. is feeling fine, neither have been vaccinated for covid. Came to ED, covid neg, admitted on ceftriaxone, feeling better. Full ROS performed and neg except as noted above. [facility] Medical History Arthritis Home Medications Glucosamine Chondroitin 1 cap PO DAILY 04/01/21 [History Last Taken 04/01/21] acetaminophen [Tylenol Extra Strength] 1,000 mg PO DAILY PRN 04/01/21 [History Last Taken 04/01/21] cyanocobalamin (vitamin B-12) 1,000 mcg PO DAILY 04/01/21 [History Last Taken 04/01/21] ibuprofen 400 mg PO DAILY PRN 04/01/21 [History Last Taken 04/01/21] turmeric root extract 500 mg PO DAILY 04/01/21 [History Last Taken 04/01/21] tamsulosin 0.4 mg PO DAILY@1730 #30 cap 04/02/21 [Rx Last Taken Unknown] Allergy/AdvReac Type Severity Reaction Status Date / Time No Known Allergies Allergy Verified 04/01/21 08:54 Surgical History (Updated 04/01/21 @ 17:18 by Casandra Laboy) History of carpal tunnel release of both wrists Social History Smoking Status: Never smoker Physical Exam Const alert, oriented x3 and no apparent distress General Appearance: cooperative HEENT normocephalic and head/scalp atraumatic Eyes PERRL and EOMs intact bilaterally Neck supple and No nodes Lymph Lymphatic: no lymphadenopathy noted Resp normal air movement and clear to auscultation bilaterally Cardio regular rate and regular rhythm GI normal to inspection, nondistended, normoactive bowel sounds GI Narrative: no flank pain Extremity no clubbing, cyanosis or edema Skin no rashes or lesions noted Neuro CN's II-XII intact bilaterally Lab / Micro Data Result Diagrams: 04/02/21 04:20 04/02/21 04:20 Labs: Laboratory Results - last 24 hr 04/01/21 04/01/21 04/02/21 17:00 21:00 00:00 WBC RBC Hgb Hct MCV MCH MCHC RDW Std Deviation RDW Coeff of [place] Plt Count MPV Immature Gran % (Auto) Neut % (Auto) Lymph % (Auto) [place] % (Auto) Eos % (Auto) Baso % (Auto) Absolute Neuts (auto) Absolute Lymphs (auto) Nucleated RBC % Sodium Potassium Chloride Carbon Dioxide Anion Gap BUN Creatinine Estim Creat Clear Calc Est GFR (MDRD) Af Amer Est GFR (MDRD) Non-Af BUN/Creatinine Ratio Glucose Calcium Phosphorus Magnesium Total Bilirubin AST ALT Alkaline Phosphatase Troponin I 0.035 0.031 0.032 Total Protein Albumin Globulin Albumin/Globulin Ratio 04/02/21 04/02/21 04/02/21 04:20 04:20 04:20 WBC 12.7 H RBC 4.27 L Hgb 12.5 L Hct 37.9 L MCV 88.8 MCH 29.3 MCHC 33.0 RDW Std Deviation 45.5 H RDW Coeff of [place] 13.9 Plt Count 114 L MPV 10.2 Immature Gran % (Auto) 0.600 Neut % (Auto) 79.1 H Lymph % (Auto) 12.1 L [place] % (Auto) 6.5 Eos % (Auto) 1.3 Baso % (Auto) 0.4 Absolute Neuts (auto) 10.1 H Absolute Lymphs (auto) 1.54 Nucleated RBC % 0 Sodium 140 Potassium 3.3 L Chloride 108 H Carbon Dioxide 26.0 Anion Gap 6 BUN 20 H Creatinine 0.86 Estim Creat Clear Calc 92.74 Est GFR (MDRD) Af Amer 115 Est GFR (MDRD) Non-Af 95 BUN/Creatinine Ratio 23.4 H Glucose 85 Calcium 7.7 L Phosphorus 2.2 L Magnesium 2.0 Total Bilirubin 0.70 AST 27 ALT 34 Alkaline Phosphatase 44 L Troponin I Total Protein 5.8 L Albumin 2.9 L Globulin 2.9 Albumin/Globulin Ratio 1.0 Micro: Microbiology 04/01/21 11:45 Urine Culture - Preliminary Urine, Clean 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
[2021-04-02] MEDS: 0.9% Saline Lock 10 ML Syringe IV (20:37)
[2021-04-03] VITALS (7 sets, daily range): BP systolic 112–144; BP diastolic 53–82; PULSE 70–86; RESP 16–18; TEMP 36.5–36.6; O2SAT 95–98
[2021-04-03] MEDS: Acetaminophen 500 MG Tablet 1000 MG PO ×2 (04:05→11:17)
[2021-04-03] MEDS: Ipratropium/Albuterol Sulfate 3 ML AMPUL.NEB INHALATION ×2 (07:08→10:25)
[2021-04-03] MEDS: Enoxaparin 40 MG/0.4 ML Syringe SC (08:35)
[2021-04-03] MEDS: Cyanocobalamin 500 MCG Tablet 1000 MCG PO (08:36)
--- NOTE | 2021-04-03 11:19 | PCM.DC ---
Discharge Instructions Follow Up Care Test Results: Test results from this visit will be discussed in further detail at your follow-up appointment, if applicable. Discharge Plan Admission Admit Date/Time: 04/01/21 15:11 Primary Reason for Your Visit: Acute viral syndrome, UTI Attending Provider: Jose Fu Primary Care Provider: Phil House Consulting Providers: Alexandre Watts Instructions Patient Instructions: Sepsis, ED Bacteremia, Suspected (Adult), ED Viral Syndrome (Adult) Additional Instructions / Restrictions: UTI with bacteremia, sepsis. BPH Discharge Orders/Prescriptions Prescriptions: New tamsulosin 0.4 mg Capsule 0.4 mg PO DAILY@1730 Qty: 30 RF: 1 ciprofloxacin HCl 500 mg tablet 500 mg PO BID Qty: 14 RF: 0 Continued cyanocobalamin (vitamin B-12) 1,000 mcg Tablet 1,000 mcg PO DAILY RF: 0 acetaminophen [Tylenol Extra Strength] 500 mg Tablet 1,000 mg PO DAILY PRN (Reason: PAIN AND FEVER) RF: 0 ibuprofen 200 mg Tablet 400 mg PO DAILY PRN (Reason: PAIN AND FEVER) RF: 0 turmeric root extract 500 mg Capsule 500 mg PO DAILY RF: 0 Glucosamine Chondroitin 550-30-1 mg Capsule 1 cap PO DAILY RF: 0 Referrals / Follow Up: Phil House MD [Primary Care Provider] - Aleksandr Rodriguez MD [STAFF PHYSICIAN] - Within 1 Month (For BPH associated with UTI and bacteremia) Disposition Disposition (needs filled in before D/C Order can be placed): Home, self care
--- NOTE | 2021-04-03 11:22 | DS.PCM_ITS ---
Providers Date of Admission: 04/01/21 Primary Care Physician: Dr. Phil House MD Consultations 04/02/21 10:06 Consult: Infectious Disease Routine Consulting Provider: Alexandre Watts Reason for Consult: Viral syndrome with gram neg chente baceteremia EMERGENT Consult: No MD Notified: Yes Date Notified:: 04/02/21 Time Notified: 10:06 Method of Notification: Verbal Reason For Visit: ACUTE VIRAL SYNDROME, ACUTE HYPOXIC RESPIRATORY Diagnosis Discharge Diagnosis (1) Sepsis: Status: Acute Code(s): A41.9 - Sepsis, unspecified organism (2) Bacteremia due to Gram-negative bacteria: Status: Acute Code(s): R78.81 - Bacteremia Medications at Discharge Home Medications Glucosamine Chondroitin 1 cap PO DAILY 04/01/21 acetaminophen [Tylenol Extra Strength] 1,000 mg PO DAILY PRN 04/01/21 cyanocobalamin (vitamin B-12) 1,000 mcg PO DAILY 04/01/21 ibuprofen 400 mg PO DAILY PRN 04/01/21 turmeric root extract 500 mg PO DAILY 04/01/21 tamsulosin 0.4 mg PO DAILY@1730 #30 cap 04/02/21 ciprofloxacin HCl 500 mg PO BID #14 tab 04/03/21 Hospital Course Summary of Care Provided Hospital Course: This 65-year-old gentleman who came to ER with high fever 104 Fahrenheit, hypoxic pulse ox 80s on room air, short of breath.? Patient also has UTI symptoms. 1.? Sepsis due to Enterobacter aerogenes UTI with bacteremia: Both blood cultures positive of gram-negative chente.? ? ID is consulted.? Patient said he might have a UTI in the past.? Lactic acidosis normal. [place] shows [id number] Enterobacter heterogeneous sensitive to ceftriaxone. Blood culture shows similar Enterobacter aerogenes. Patient discharged on Cipro 500 mg twice daily for 7 days. 2.? BPH with mild bladder outlet obstruction: Patient has chronic symptoms of BPH including increased hesitancy, frequency, sometimes dribbling, intermittent micturition, dysuria.? Denies previous history of kidney stone, stricture, tumor or mass or urology procedure.? Started on Flomax. Renal ultrasound shows enlarged prostate consistent with the history. 3.? Acute hypoxia respiratory insufficiency probably due to acute viral sy ndrome: Patient responded well with bronchodilator.? Respiratory panel, Covid PCR and rapid tests are negative.? Elevated D-dimer but CTA chest negative for thromboembolism and normal pulmonary parenchyma.? Hypoxia/respiratory insufficiency resolved. 4.? DVT prophylaxis: Lovenox. Discharge medication reconciliation done. Discharge follow-up instructions completed. Discharge process discussed with the patient and his present in the room and all questions were answered to patient's satisfaction. Advised follow-up with the urologist but patient does not have insurance therefore left on patient's discretion. Cipro and Flomax prescription sent to the patient pharmacy. Total time spent, exact 35 minutes on discharge meds reconciliation, examination, coordination of care with nurses and ancillary staff, review of imaging and blood test and discussion with the patient on follow-up i nstructions Clinical Impression(s) from Imaging Studies Chest X-Ray 04/01/21 09:18 IMPRESSION: Normal x-ray examination of the chest. Electronically Signed: Praeven Storey MD at 9:31 EDT Tel , Service support , Chest CTA 04/01/21 09:35 IMPRESSION: Normal CTA chest examination, without a demonstrated pulmonary embolism or arterial dissection. Electronically Signed: Praveen Storey MD at 11:04 EDT Tel , Service support , Renal Ultrasound 04/02/21 08:32 IMPRESSION: 1. Small left renal cyst. Otherwise normal ultrasound of the kidneys and urinary bladder. 2. Enlarged prostate. Physical Exam Narrative Seen and examined. Patient did not had a fever for more than 48 hours. The urine flow has improved after Flomax. No burning micturition. Patient wants to go home. General: Alert, Oriented x3, Cooperative HEENT: Atraumatic, PERRLA, EOMI, Normocephalic Oral: No Gingival or Mucosal Lesions/ Ulcerations Neck: Supple, No JVD, Negative Carotid Bruits Lungs: Air entry diminished in bilateral lung bases. No crepitation/rhonchi Cardiovascular: Regular rate, Regular Rhythm, Normal S1, Normal S2, No murmurs Abdomen: Bowel Sounds Present, Soft, Non Tender, Non-Distended : No renal angle tenderness. No suprapubic tenderness.= Extremities: No edema, Capillary Refill Less than 3 Seconds Skin: No rashes, No breakdown Musculoskeletal: No Tenderness to Palpation of Joints or Extremities Neurological: Cranial nerves II-XII grossly intact, Deep Tendon Reflexes 2+/4 and Symmetrical, Neuro grossly intact Psych/Mental Status: Normal Affect, Appropriate. ABG / Lab / Microbiology Data Result Diagrams: 04/02/21 04:20 04/02/21 04:20 Laboratory: Laboratory Results - last 24 hr 04/01/21 09:00 D-Dimer Quant (PE/DVT) 1.74 H* Microbiology: Microbiology 04/01/21 09:10 Blood Culture - Final Blood Culture (Wb) - Right Hand 04/01/21 09:00 Blood Culture - Final Blood Culture (Wb) - Left Wrist Enterobacter aerogenes 04/01/21 11:45 Urine Culture - Final Urine, Clean Catch Enterobacter aerogenes Microbiology 04/01/21 09:10 Blood Culture (Wb) - Right Hand Blood Culture - Final 04/01/21 09:00 Blood Culture (Wb) - Left Wrist Blood Culture - Final Enterobacter aerogenes 04/01/21 11:45 Urine, Clean Catch Urine Culture - Final Enterobacter aerogenes 04/01/21 12:48 Mucosa - Nose Respiratory Panel (PCR) - Final 04/01/21 09:00 Interface Orders SARS-CoV-2 Antigen (Rapid) - Final Radiography Diagnostic Testing: Radiology Impression Renal Ultrasound 04/02/21 08:32 IMPRESSION: 1. Small left renal cyst. Otherwise normal ultrasound of the kidneys and urinary bladder. 2. Enlarged prostate. Electronically Signed: Raphael Barillas DO at 19:14 EDT Tel [phone], Service support , Meaningful Use Info Meaningful Use Diagnoses (Choose all that apply): None applicable Discharge Plan Admission Admit Date/Time: 04/01/21 15:11 Primary Reason for Your Visit: Acute viral syndrome, UTI Attending Provider: Jose Fu Primary Care Provider: Phil House Consulting Providers: Alexandre Watts Instructions Patient Instructions: Sepsis, ED Bacteremia, Suspected (Adult), ED Viral Syndrome (Adult) Additional Instructions / Restrictions: Patient Problems: Altered Health Status related to Hospitalization Patient Goals: *Optimal Level of Health *Keep Appointments *Medication Compliance *Remain SafeUTI with bacteremia, sepsis. BPH Discharge Orders/Prescriptions Prescriptions: New tamsulosin 0.4 mg Capsule 0.4 mg PO DAILY@1730 Qty: 30 RF: 1 ciprofloxacin HCl 500 mg tablet 500 mg PO BID Qty: 14 RF: 0 Continued cyanocobalamin (vitamin B-12) 1,000 mcg Tablet 1,000 mcg PO DAILY RF: 0 acetaminophen [Tylenol Extra Strength] 500 mg Tablet 1,000 mg PO DAILY PRN (Reason: PAIN AND FEVER) RF: 0 ibuprofen 200 mg Tablet 400 mg PO DAILY PRN (Reason: PAIN AND FEVER) RF: 0 turmeric root extract 500 mg Capsule 500 mg PO DAILY RF: 0 Glucosamine Chondroitin 550-30-1 mg Capsule 1 cap PO DAILY RF: 0 Referrals / Follow Up: Phil House MD [Primary Care Provider] - Aleksandr Rodriguez MD [STAFF PHYSICIAN] - Within 1 Month (For BPH associated with UTI and bacteremia) Disposition Disposition (needs filled in before D/C Order can be placed): Home, self care Visit Charges Inpatient E&M: 42872 Disch Hosp
--- NOTE | 2021-04-03 12:31 | PHA.DC.MC ---
Pharmacy Service has performed discharge medication reconciliation and counseling for this patient. 1. CIPROFLOXACIN 500MG PO BID X 7 DAYS 2. TAMSULOSIN 0.4MG PO DAILY The patient's discharge medication list was reviewed for discrepancies and discrepancies were resolved. Home Medications Glucosamine Chondroitin 1 cap PO DAILY 04/01/21 acetaminophen [Tylenol Extra Strength] 1,000 mg PO DAILY PRN 04/01/21 cyanocobalamin (vitamin B-12) 1,000 mcg PO DAILY 04/01/21 ibuprofen 400 mg PO DAILY PRN 04/01/21 turmeric root extract 500 mg PO DAILY 04/01/21 tamsulosin 0.4 mg PO DAILY@1730 #30 cap 04/02/21 ciprofloxacin HCl 500 mg PO BID #14 tab 04/03/21 The patient was counseled on the following discharge medications and changes in medications for homegoing were reviewed. The Reason for Use, instructions for use, and potential side effects were reviewed for all new medications. The patient's questions regarding all of their medications were answered. The patient was able to verbally demonstrate an understanding of their discharge medications.
== END 2021-04-03 11:21 | disposition home or self-care (01) ==
LOC: ED 15:07 → MS3 15:19 → ICU 15:56 → PCU 04-02 13:48
PROVIDERS: Admitting Provider Student in an Organized Health Care Education/Training Program; Emergency Provider Emergency Medicine; PCP Family Medicine; Visit Provider Internal Medicine
DX: A41.9 Sepsis, unspecified organism (principal); B96.89 Other specified bacterial agents as the cause of diseases classified elsewhere; N39.0 Urinary tract infection, site not specified; N13.8 Other obstructive and reflux uropathy; N40.1 Benign prostatic hyperplasia with lower urinary tract symptoms; R06.89 Other abnormalities of breathing; E87.2 Acidosis; R09.02 Hypoxemia; M19.90 Unspecified osteoarthritis, unspecified site; Z79.899 Other long term (current) drug therapy
CPT/HCPCS: 36415; 71045; 71275; 76770; 80053; 81001; 83605; 83735; 84100; 84484; 85025; 85379; 87040; 87077; 87086; 87088; 87186; 87426; 87633; 87635; 93005; 94640; 96361; 96365; 96366; 96367; 96372; 99218; 99251; 99285; J7030; J7040; J7050; Q9967; A4216; G0378; G0463; J0696; U0002

== ENCOUNTER → 2021-10-26 13:19 | Outpatient (CLI) | payer SELFPAY ==
[2021-10-26 14:58] LABS: PSA,Total - Annual Screen 4.08 ng/mL (0.00-4.00)
== END ==
PROVIDERS: PCP Family Medicine; Referring Provider Urology; Visit Provider Urology
DX: Z12.5 Encounter for screening for malignant neoplasm of prostate (principal)
CPT/HCPCS: 36415; 84153; G0103

== ENCOUNTER 2022-09-11 16:27 | Inpatient (IN) | payer SELFPAY ==
[2022-09-11] VITALS (32 sets, daily range): BP systolic 73–139; BP diastolic 59–107; PULSE 92–164; RESP 13–29; TEMP 36.4–36.5; O2SAT 85–95; BMI 33.9
--- NOTE | 2022-09-11 16:29 | PCM.HP.STD ---
HPI - General General Date of Admission: 09/11/22 HPI Narrative MAIA ESTRADA, is a 67 M who presents to the hospital from his PCPs office secondary to shortness of breath. He was worked up 2-1/2 weeks ago and diagnosed with COVID but was still having some shortness of breath so he was started on some antibiotics about a week ago. However, he continued to have some shortness of breath so saw his PCP today and they noticed that he was tachycardic so they performed an EKG which demonstrated A. fib with RVR. This is a new diagnosis for him. He presented to an outside hospital and was started on Cardizem. TSH was normal. He was also found to have an elevated D-dimer, imaging is being uploaded into our system, and was started on a heparin drip. [facility] Medical History (Updated 09/11/22 @ 17:[address] Davon Edwards MD) Arthritis Sepsis Home Medications acetaminophen 500 mg tablet (Tylenol Extra Strength) 1,000 mg PO DAILY PRN PAIN AND FEVER 04/01/21 [History Last Taken 04/01/21] cyanocobalamin (vitamin B-12) 1,000 mcg tablet 1,000 mcg PO DAILY SUPPLEMENT 04/01/21 [History Last Taken 09/11/22] glucosamine sulf dipot chlr,msm,chond 550 mg-C 30 mg-haylee 1 mg capsule (Glucosamine Chondroitin) 1 cap PO DAILY SUPPLEMENT 04/01/21 [History Last Taken 09/11/22] ibuprofen 200 mg tablet 400 mg PO DAILY PRN PAIN AND FEVER 04/01/21 [History Last Taken 04/01/21] turmeric root extract 500 mg capsule 500 mg PO DAILY SUPPLEMENT 04/01/21 [History Last Taken 09/11/22] tamsulosin 0.4 mg capsule 0.4 mg PO DAILY@1730 #30 caps 04/02/21 [Rx Last Taken 09/10/22] ascorbic acid (vitamin C) 1,000 mg tablet (Vitamin C) 1,000 mg PO DAILY 09/11/22 [History Last Taken 09/11/22] aspirin 81 mg tablet 81 mg PO DAILY 09/11/22 [History Last Taken 09/11/22] Allergy/AdvReac Type Severity Reaction Status Date / Time No Known Allergies Allergy Verified 04/01/21 08:54 Family History (Updated 09/11/22 @ 16:47 by Evelyn Contreras) Mother Atrial fibrillation Brother Myocardial infarction Surgical History (Updated 04/01/21 @ 17:18 by Casandra Laboy) History of carpal tunnel release of both wrists Social History (Updated 09/11/22 @ 16:47 by Evelyn Contreras) household members: spouse housing: house Smoking Status: Never smoker ROS Constitutional Constitutional: Denies chills, fatigue, fever(s) or malaise Eyes Eyes: Denies blurry vision ENT HEENT: Denies headache(s) or nasal discharge Cardiovascular Cardiovascular: Reports palpitations; Denies chest pain, dyspnea on exertion or syncope Respiratory/Chest Respiratory/Chest: Reports shortness of breath at rest; Denies cough or shortness of breath with exertion Gastrointestinal Gastrointestinal: Denies constipation, diarrhea, nausea or vomiting Genitourinary Genitourinary: Denies dysuria Neurologic Neurologic: Denies focal weakness, numbness or tremor(s) Psychiatric Psychiatric: Denies anxiety or depression Vital Signs Vital Signs Vital Signs: 09/11/22 15:37 09/11/22 15:35 Temperature 97.5 F L Temperature Source Temporal Pulse Rate 127 H 120 H Respiratory Rate 18 Blood Pressure 114/96 H Blood Pressure Mean 102 Blood Pressure Source Monitor Blood Pressure Position Sitting Blood Pressure Location Left Arm Pulse Ox 93 Oxygen Delivery Method Room Air Weight Weight: 250 lb 3.594 oz Body Mass Index (BMI) 33.9 Physical Exam Narrative General: Alert, Oriented x3, Cooperative, No apparent distress HEENT: Atraumatic, PERRLA, EOMI, Normocephalic Oral: Moist Mucosa Neck: Supple, No JVD Lungs: Clear to auscultation, Normal air movement, No rhonchi, No wheeze, No rales Cardiovascular: Irregular rate and rhythm, Normal S1, Normal S2, No murmurs Abdomen: Soft, Non Tender, Non-Distended, No Hepato-splenomegaly Extremities: No edema, Capillary Refill Less than 3 Seconds Skin: No rashes, No breakdown Musculoskeletal: No Tenderness to Palpation of Joints or Extremities Neurological: Cranial nerves II-XII grossly intact, Motor Exam 5/5 strength throughout, Sensory exam intact to light touch and pain Psych/Mental Status: Normal Affect, Appropriate Assessment & Plan Assessment/Plan (1) Paroxysmal atrial fibrillation with RVR: PLAN: Plan 1. New onset A. fib with RVR with demand ischemia ? We will continue with heparin drip as well as a Cardizem drip ? Will obtain an echo ? We will hold his home aspirin ? TSH is normal ? We will trend troponins, his first troponin is 277 which is likely a type II event, he was not transported on Cardizem so on arrival his heart rates were in the 170s to 180s 2. BPH ? Stable ? Continue with Flomax DVT: Heparin drip Charges/Coding Visit Charges Inpatient E&M: 95674 Init Hosp L2
[2022-09-11] MEDS: HEPARIN/D5w 25,000 UNITS 25,000 UNITS/250 ML IV.SOLN. 10 UNITS CONT INF (16:57)
[2022-09-11 17:27] LABS: International Normalized Ratio 1.2; Partial Thromboplast Time 35.4 Seconds (24.1-36.2); Prothrombin Time (Protime)PT. 14.7 SECONDS (11.7-14.9)
[2022-09-11 18:01] LABS: Troponin-I HS 277 pg/mL (3.0-78.0)
[2022-09-11] MEDS: Tamsulosin HCl 0.4 MG Capsule PO (18:07)
[2022-09-11] MEDS: Acetaminophen 500 MG Tablet 1000 MG PO (18:24)
[2022-09-11 19:02] LABS: Troponin-I HS 283 pg/mL (3.0-78.0)
[2022-09-11] MEDS: Metoprolol Tartrate 25 MG Tablet PO (20:03)
[2022-09-11 23:08] LABS: Partial Thromboplast Time 33.5 Seconds (24.1-36.2)
[2022-09-11 23:25] LABS: Troponin-I HS 248 pg/mL (3.0-78.0)
[2022-09-11] MEDS: Heparin Injection (Vial) 5,000 UNIT/ML VIAL IV (23:42)
[2022-09-11] MEDS: 0.9% Saline Lock 10 ML Syringe IV (23:44)
[2022-09-12] VITALS (45 sets, daily range): BP systolic 73–138; BP diastolic 55–94; PULSE 71–128; RESP 16–23; TEMP 36.6–37.2; O2SAT 90–96
[2022-09-12 06:01] LABS: Absolute Neutrophil Count 4.1 X10^3/uL (2.0-7.7); Basophil# 0.06 X10^3/uL; Basophil% 0.9 % (0-1); Eosinophil# 0.17 X10^3/uL; Eosinophils% 2.4 % (0-5); Hematocrit 41.7 % (40-54); Hemoglobin 13.6 g/dL (13.0-16.5); Lymphocyte % 30.2 % (19-41); Mean Corp Hgb Conc 32.6 g/dL (32-36); Mean Corpuscular Hgb 29.4 pg (27.0-32.0); Mean Corpuscular Volume 90.1 fL (80-94); Mean Platelet Vol. 11.1 fl (6.2-12.0); Monocyte# 0.55 X10^3/uL; Monocyte% 7.9 % (0-10); NRBC Flagged by Analyzer 0 % (0-5); Neutrophil # 4.05 X10^3/uL (2.7-7.7); Neutrophil % 58.3 % (47-70); Platelet Count 227 K/mm3 (150-450); RBC Distribution Width CV 13.5 % (11.6-14.6); RBC Distribution Width SD 44.2 fl (35.1-43.9); Red Blood Count 4.63 M/mm3 (4.6-6.2)
[2022-09-12 06:13] LABS: Partial Thromboplast Time 35.7 Seconds (24.1-36.2)
[2022-09-12 06:21] LABS: Anion Gap 9 (5-15); BUN 16 mg/dL (7-18); BUN/Creat Ratio 19.1 RATIO (10-20); Calcium,Total 8.6 mg/dL (8.5-10.1); Chloride 106 mmol/L (98-107); Creatinine, Serum 0.84 mg/dL (0.70-1.30); EST Glomerular Filtration Rate 97 mL/min (>60); Est Glom Filt Rate - Afr Amer 117 mL/min (>60); Estimated Creatinine Clearance 92.38 ml/min; Glucose 94 mg/dL (74-106); Sodium Level 137 mmol/L (136-145)
[2022-09-12] MEDS: HEPARIN/D5w 25,000 UNITS 25,000 UNITS/250 ML IV.SOLN. 12 UNITS CONT INF (06:43)
[2022-09-12] MEDS: Heparin Injection (Vial) 5,000 UNIT/ML VIAL IV (06:53)
[2022-09-12] MEDS: 0.9% Saline Lock 10 ML Syringe IV ×3 (06:55→18:14)
--- NOTE | 2022-09-12 08:52 | CT_ITS ---
EXAM: CT ANGIOGRAPHY CHEST WITHOUT AND WITH INTRAVENOUS CONTRAST CLINICAL INDICATION: elevated d-dimer --shortness of breath TECHNIQUE: Helically acquired angiography images were obtained of the chest without and with intravenous contrast. This CT exam was performed using one or more of the following dose reduction techniques: automated exposure control, adjustment of the mA and/or kV according to patient size, and/or use of iterative reconstruction technique. This report was created using [email or web address] report generation technology. MIP reconstructed images were created and reviewed. CONTRAST: IV 100mL [id number]-370 COMPARISON: CTA Chest dated apr 01 2021 FINDINGS: PULMONARY ARTERIES: Normal. Normal in caliber. No evidence of pulmonary embolism. AORTA: Normal. Normal in caliber. No evidence of dissection. GREAT VESSELS OF AORTIC ARCH: Normal. Normal in caliber. No evidence of dissection. LUNGS AND PLEURAL SPACES: Moderate right and small pleural effusions are noted associated with bilateral compression atelectasis of the lower lobes and right middle lobe. Mild interstitial thickening consistent with pulmonary edema. No mass. No pneumothorax. HEART: Mild to moderate coronary artery calcification. No pericardial effusion. No signs of right heart strain, ratio of right ventricle to left ventricle measures less than 1. MEDIASTINUM: Normal. No mediastinal or hilar adenopathy. Esophagus is unremarkable. No hiatal hernia. THYROID: Normal. No thyroid lesions. BONES/JOINTS: Normal. No suspicious lytic or blastic abnormality. CT/CTA Chest W/WO Contrast IMPRESSION: 1. No evidence of acute pulmonary embolism. 2. Mild pulmonary edema. 3. Bilateral pleural effusions with compression atelectasis of the lower lobes and right middle lobe. Electronically Signed: John Marshall MD at 10:13 EDT ,
[2022-09-12] MEDS: Metoprolol Tartrate 50 MG Tablet PO ×2 (09:03→22:09)
[2022-09-12] MEDS: Furosemide 40 MG/4 ML Vial IV (11:58)
[2022-09-12] MEDS: Potassium Chloride Oral Tablet 20 MEQ 40 MEQ PO (11:58)
--- NOTE | 2022-09-12 12:13 | PCM.PN.HOSP ---
Subjective Subjective Patient was seen and examined today, I ordered a CT of the chest to rule out any pulmonary emboli, it did not show any emboli but showed signs consistent with congestive heart failure. Patient is currently on room air at this time, I talked extensively to the patient today and also discussed his care with cardiology who I have consulted to see the patient. I started the patient on IV Lasix and placed the patient on a beta-geovanny, he remains on Cardizem drip for now and he also remains on a heparin drip. Objective Data Objective Data Vital Signs: Vital Signs Temp Pulse Resp BP Pulse Ox O2 Del Method O2 Flow Rate 99.0 F 114 H 16 98/76 92 Room Air 2 09/12/22 11:00 09/12/22 11:00 09/12/22 11:00 09/12/22 11:00 09/12/22 11:00 09/12/22 11:00 09/12/22 07:40 Oxygen Flow Rate (L/min) 2 Oxygen Delivery Method Room Air Weight: 113.5 kg Body Mass Index (BMI) 33.9 Intake & Output: Intake and Output for Last 24 Hours 09/10/22 09/11/22 09/12/22 23:59 23:59 23:59 Intake Total 128.83 / 428.83 769.99 / 769.99 Output Total 675 / 675 Balance 128.83 / 53.83 94.99 / 94.99 Lab / Micro Data Result Diagrams: 09/12/22 05:40 09/12/22 05:40 Labs: Laboratory Results - last 24 hr 09/11/22 16:50: Troponin I High Sens 277 H* 09/11/22 16:50: PT 14.7, INR 1.2, APTT 35.4 09/11/22 18:32: Troponin I High Sens 283 H* 09/11/22 22:50: Troponin I High Sens 248 H* 09/11/22 22:50: APTT 33.5 09/12/22 05:40: WBC 7.0, RBC 4.63, Hgb 13.6, Hct 41.7, MCV 90.1, MCH 29.4, MCHC 32.6, RDW Std Deviation 44.2 H, RDW Coeff of Chencho 13.5, Plt Count 227, MPV 11.1, Immature Gran % (Auto) 0.300, Neut % (Auto) 58.3, Lymph % (Auto) 30.2, [place] % (Auto) 7.9, Eos % (Auto) 2.4, Baso % (Auto) 0.9, Absolute Neuts (auto) 4.1, Absolute Lymphs (auto) 2.10, Nucleated RBC % 0 09/12/22 05:40: Sodium 137, Potassium 4.0, Chloride 106, Carbon Dioxide 22.0, Anion Gap 9, BUN 16, Creatinine 0.84, Estim Creat Clear Calc 92.38, Est GFR (MDRD) Af Amer 117, Est GFR (MDRD) Non-Af 97, BUN/Creatinine Ratio 19.1, Glucose 94, Calcium 8.6 09/12/22 05:40: APTT 35.7 Radiography Diagnostic Testing: Radiology Impression Chest CTA 09/12/22 08:52 IMPRESSION: 1. No evidence of acute pulmonary embolism. 2. Mild pulmonary edema. 3. Bilateral pleural effusions with compression atelectasis of the lower lobes and right middle lobe. Electronically Signed: John Marshall MD at 10:13 EDT , Physical Exam Const alert, oriented x3, no apparent distress, average body habitus and healthy appearing General Appearance: cooperative, well kempt and well developed Orientation / Consciousness: awake, oriented to person, oriented to place and oriented to time HEENT normocephalic, head/scalp atraumatic and moist oral mucous membranes Eyes PERRL, EOMs intact bilaterally and conjunctivae normal Neck supple, no JVD, thyroid normal and no carotid bruits General: trachea midline Resp normal respiratory effort, no retractions, no use of accessory muscles and clear to auscultation bilaterally Auscultation: Negative for rales, rhonchi or wheezes Cardio no murmurs, no rub and no gallops Cardio Narrative: Heart rate and rhythm is irregular GI normal to inspection, nondistended, normoactive bowel sounds, soft to palpation, non-tender and non-distended Extremity no clubbing, cyanosis or edema Skin no rashes or lesions noted General Skin Exam: no breakdown Neuro oriented x3, CN's II-XII intact bilaterally, moves all extremities, no focal motor deficits and no sensory deficits noted Sensorium / Orientation: awake, alert, oriented to person, oriented to place and oriented to time Speech: speech normal Psych affect normal Assessment & Plan Assessment/Plan (1) Hypoxia: PLAN: Plan 1. [id number] will remain on his present medications, he was seen today by cardiology, plan is for heart catheterization tomorrow if the patient remained stable #2 new onset atrial fibrillation with RVR-patient states he has never had a history of atrial fibrillation before, he has been told he had skips on an office visit with his PCP several years ago but his meds were not changed and he underwent no additional testing. Patient is on rate control medications (Cardizem and metoprolol) at this time, he will be monitored on telemetry, patient is on a heparin drip #3 acute congestive heart failure-type unknown at this time, patient will have an echocardiogram tomorrow, he was put on IV Lasix Charges/Coding Visit Charges Inpatient E&M: 64721 Subs Hosp L2
--- NOTE | 2022-09-12 13:17 | PCM.CONS.C ---
Assessment & Plan Assessment/Plan (1) Atrial fibrillation: PLAN: The patient presents with atrial fibrillation. The etiology may be multifactorial. This could be related to a combination of age, potentially his recent COVID-19, and undiagnosed underlying cardiovascular disease process, as he has not been found to have obvious evidence of thromboembolic disease such as pulmonary emboli or other definitive issues to explain it thus far. At the moment he will continue to be monitored. He will continue medical therapy with rate control therapy and anticoagulation. Over time his medications can be adjusted. Depending upon his clinical course he may need addition of antiarrhythmic therapy. He may eventually need attempts at regaining sinus rhythm with synchronized biphasic DC cardioversion. (2) CHF (congestive heart failure): PLAN: The patient has findings compatible with CHF. Is unclear at this time whether this is related to a tachycardic induced event from his atrial fibrillation versus another CAD or non-CAD related etiology. It is also unclear at this time whether this is systolic or diastolic mediated or combined. At the present time he will continue medical management which will include IV diuretic therapy. (3) Non-ST elevation (NSTEMI) myocardial infarction: PLAN: The patient's cardiac enzymes are declining. His ECG is as noted. Its unclear at this time whether his abnormal troponin I levels compatible with a non-ST segment elevation TN represent a primary type I event versus being a type II event brought out by his atrial dysrhythmia and his congestive heart failure, etc. At the moment he will continue to be monitored. He has been asked to have a transthoracic echocardiogram to further evaluate his left ventricular wall motion and systolic function. He is also been asked to consider further evaluation with diagnostic cardiac catheterization to evaluate for underlying CAD. The procedure and risk were discussed with him. He was agreeable to this approach. In the interim he will continue medical management. (4) COVID-19: PLAN: The patient states he had been diagnosed with COVID-19. He states he remained home for his 5 days of quarantine. 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 He states he is greater than 10 days from his original event. Addt'l Comments The patient's case was discussed and reviewed with the patient, his spouse, and Dr. Allen. This note was generated using a voice recognition system and there may be incorrect words, spelling or punctuation that were not noted when reviewing the office note prior to saving. HPI Consult Data Date of Consult: 09/12/22 HPI Narrative HPI Narrative: MAIA ESTRADA, is a 67 year old white male who presents for concerns of atrial fibrillation, congestive heart failure, and abnormal cardiac enzymes compatible with a non-ST segment elevation TN, superimposed upon a history of recent COVID-19. 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 He notes that recently he has not been feeling as well. His states that he has been feeling somewhat more tired and fatigued. He is also noted to have developed a cough over time. More recently he states he was evaluated at an outpatient urgent care type center. He was diagnosed with COVID-19. He did not receive any specific antiviral therapy. He remained at home and quarantine for 5 days. 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 However, he states he still had concerns of a cough and being short of breath. He was reevaluated and was thought to have an underlying bacterial infection and placed on antibiotic therapy. However, he states this did not seem to make a significant improvement in his symptoms. At the same time he states he started to sense over time that his heart beat was going faster . He was then evaluated by his local emergency department. He was found to be in atrial fibrillation. He was subsequently transferred to [facility] for further evaluation and care. To the best of his knowledge he has no cardiovascular disease history. He has not complained of ongoing chest discomfort. He has describes some symptoms compatible with orthopnea. There has been no near-syncope or syncope. 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 However, at the same time, he states his sons have encouraged him to seek medical care as they noted that he was not feeling well. His does state that he was told years ago by his primary care physician that he had a irregular heartbeat. However, at that time, an ECG was reportedly performed which demonstrated no acute findings. That ECG is unavailable for review. It appears that his evaluation thus far has demonstrated abnormal troponin I levels which have decreased. His ECG demonstrated atrial fibrillation with occasional PVCs, low voltage QRS. He is also undergone a chest CTA scan based upon his clinical history and concerns of an abnormal D-dimer level. He had no thromboembolic disease or great vessel disease. He was reported as having mild to moderate coronary artery calcification. He was also noted to have bilateral pleural effusions with compression atelectasis of the lower lobes in the right middle lobe. He has been placed on medical management. This has included IV diltiazem, IV heparin, and IV furosemide/Lasix. He was recommended for further cardiovascular evaluation with a transthoracic echocardiogram and diagnostic cardiac catheterization. [facility] Medical History (Updated 09/12/22 @ 13:[address] Jose Elias Chavarria MD) Arthritis Sepsis Home Medications acetaminophen 500 mg tablet (Tylenol Extra Strength) 1,000 mg PO DAILY PRN PAIN AND FEVER 04/01/21 [History Last Taken 04/01/21] cyanocobalamin (vitamin B-12) 1,000 mcg tablet 1,000 mcg PO DAILY SUPPLEMENT 04/01/21 [History Last Taken 09/11/22] glucosamine sulf dipot chlr,msm,chond 550 mg-C 30 mg-haylee 1 mg capsule (Glucosamine Chondroitin) 1 cap PO DAILY SUPPLEMENT 04/01/21 [History Last Taken 09/11/22] ibuprofen 200 mg tablet 400 mg PO DAILY PRN PAIN AND FEVER 04/01/21 [History Last Taken 04/01/21] turmeric root extract 500 mg capsule 500 mg PO DAILY SUPPLEMENT 04/01/21 [History Last Taken 09/11/22] tamsulosin 0.4 mg capsule 0.4 mg PO DAILY@1730 #30 caps 04/02/21 [Rx Last Taken 09/10/22] ascorbic acid (vitamin C) 1,000 mg tablet (Vitamin C) 1,000 mg PO DAILY 09/11/22 [History Last Taken 09/11/22] aspirin 81 mg tablet 81 mg PO DAILY 09/11/22 [History Last Taken 09/11/22] Allergy/AdvReac Type Severity Reaction Status Date / Time No Known Allergies Allergy Verified 04/01/21 08:54 Family History (Updated 09/11/22 @ 16:47 by Evelyn Contreras) Mother Atrial fibrillation Brother Myocardial infarction Surgical History (Updated 04/01/21 @ 17:18 by Casandra Laboy) History of carpal tunnel release of both wrists Social History (Updated 09/11/22 @ 16:47 by Evelyn Contreras) household members: spouse housing: house Smoking Status: Never smoker ROS Constitutional Constitutional: Reports fatigue Eyes Eyes: Reports as per HPI ENT HEENT: Reports as per HPI Cardiovascular Cardiovascular: Reports dyspnea and palpitations Respiratory/Chest Respiratory/Chest: Reports cough and dyspnea Gastrointestinal Gastrointestinal: Reports as per HPI Genitourinary Genitourinary: Reports as per HPI Musculoskeletal Musculoskeletal: Reports as per HPI Integumentary Integumentary: Reports as per HPI Neurologic Neurologic: Reports as per HPI Physical Exam Const alert, oriented x3, no apparent distress and healthy appearing Orientation / Consciousness: awake HEENT normocephalic, head/scalp atraumatic and hearing grossly normal bilaterally Eyes PERRL, EOMs intact bilaterally, conjunctivae normal and no scleral icterus Neck full ROM, supple and no JVD Carotids: normal carotid upstroke Resp normal respiratory effort Auscultation: diminished lung sounds bilateral lower (Right greater than left) Cardio Rhythm: abnormal rhythm irregularly irregular Heart Sounds: S1 normal and S2 normal GI normal to inspection, nondistended, normoactive bowel sounds Extremity no pedal edema Skin no rashes or lesions noted Psych mental status grossly normal Risk Stratification Risk Stratification Applicable: Yes Age >/= 65: Yes >/= 3 CAD Risk Factors (HTN, HLD, DM, family hx of CAD, or current smoker): No Aspirin Use in the Past 7 Days: No Severe Angina (>/= episodes in 24 hours): No EKG ST Changes >/= 0.5mm: No Positive Cardiac Marker: Yes JANELLE Risk Stratification Score: 2 JANELLE % Risk: 8% Risk Procedure Criteria Type of Procedure Procedure Type: Elective Elective Risks - COVID COVID Risk Discussion: The surgeon/proceduralist and patient have discussed in detail the risk of exposure to and/or potential harm posed by the COVID-19 virus with having a surgery/procedure at this time versus the risk of delaying the surgery/procedure. It is not possible to know either the risk of delaying the surgery or procedure or chance of getting an infection with perfect accuracy, but a joint decision was made between the patient and the surgeon/proceduralist to proceed at this time with the scheduled surgery/procedure as indicated on the consent form. Objective Data Vital Signs: Vital Signs Temp Pulse Resp BP Pulse Ox O2 Del Method O2 Flow Rate 99.0 F 93 20 H 103/90 H 93 Room Air 2 09/12/22 11:00 09/12/22 13:16 09/12/22 13:16 09/12/22 13:16 09/12/22 13:16 09/12/22 13:16 09/12/22 07:40 Oxygen Flow Rate (L/min) 2 Oxygen Delivery Method Room Air Weight: 250 lb 3.594 oz Body Mass Index (BMI) 33.9 Intake & Output: Intake and Output for Last 24 Hours 09/10/22 09/11/22 09/12/22 23:59 23:59 23:59 Intake Total 128.83 / 428.83 803.99 / 803.99 Output Total 675 / 675 Balance 128.83 / 53.83 128.99 / 128.99 Lab / Micro Data Result Diagrams: 09/12/22 05:40 09/12/22 05:40 Labs: Laboratory Results - last 24 hr 09/11/22 16:50: Troponin I High Sens 277 H* 09/11/22 16:50: PT 14.7, INR 1.2, APTT 35.4 09/11/22 18:32: Troponin I High Sens 283 H* 09/11/22 22:50: Troponin I High Sens 248 H* 09/11/22 22:50: APTT 33.5 09/12/22 05:40: WBC 7.0, RBC 4.63, Hgb 13.6, Hct 41.7, MCV 90.1, MCH 29.4, MCHC 32.6, RDW Std Deviation 44.2 H, RDW Coeff of Chencho 13.5, Plt Count 227, MPV 11.1, Immature Gran % (Auto) 0.300, Neut % (Auto) 58.3, Lymph % (Auto) 30.2, [place] % (Auto) 7.9, Eos % (Auto) 2.4, Baso % (Auto) 0.9, Absolute Neuts (auto) 4.1, Absolute Lymphs (auto) 2.10, Nucleated RBC % 0 09/12/22 05:40: Sodium 137, Potassium 4.0, Chloride 106, Carbon Dioxide 22.0, Anion Gap 9, BUN 16, Creatinine 0.84, Estim Creat Clear Calc 92.38, Est GFR (MDRD) Af Amer 117, Est GFR (MDRD) Non-Af 97, BUN/Creatinine Ratio 19.1, Glucose 94, Calcium 8.6 09/12/22 05:40: APTT 35.7 Cardiology Labs/Tests 09/11/22 16:50: PT 14.7, INR 1.2, APTT 35.4 09/11/22 22:50: APTT 33.5 09/12/22 05:40: WBC 7.0, RBC 4.63, Hgb 13.6, Hct 41.7, MCV 90.1, MCH 29.4, MCHC 32.6, Plt Count 227, MPV 11.1, Immature Gran % (Auto) 0.300, Neut % (Auto) 58.3, Lymph % (Auto) 30.2, [place] % (Auto) 7.9, Eos % (Auto) 2.4, Baso % (Auto) 0.9, Absolute Neuts (auto) 4.1, Nucleated RBC % 0 09/12/22 05:40: Sodium 137, Potassium 4.0, Chloride 106, Carbon Dioxide 22.0, Anion Gap 9, BUN 16, Creatinine 0.84, Est GFR (MDRD) Af Amer 117, Est GFR (MDRD) Non-Af 97, BUN/Creatinine Ratio 19.1, Glucose 94, Calcium 8.6 09/12/22 05:40: APTT 35.7 Rhythm: Atrial fibrillation EKG: As noted above ECHO: Pending Radiography Diagnostic Testing: Radiology Impression Chest CTA 09/12/22 08:52 IMPRESSION: 1. No evidence of acute pulmonary embolism. 2. Mild pulmonary edema. 3. Bilateral pleural effusions with compression atelectasis of the lower lobes and right middle lobe. Electronically Signed: John Marshall MD at 10:13 EDT ,
[2022-09-12 13:25] LABS: Partial Thromboplast Time 46.2 Seconds (24.1-36.2)
[2022-09-12] MEDS: Aspirin 325 MG Tablet PO (14:03)
[2022-09-12] MEDS: Acetaminophen 500 MG Tablet 1000 MG PO (15:38)
[2022-09-12] MEDS: Tamsulosin HCl 0.4 MG Capsule PO (18:13)
[2022-09-12] MEDS: Furosemide 20 MG/2 ML VIAL IV (18:13)
[2022-09-12 20:20] LABS: Partial Thromboplast Time 47.7 Seconds (24.1-36.2)
[2022-09-12] MEDS: guaiFENesin/Codeine 5 ML UDC PO (22:09)
[2022-09-12] MEDS: MELATONIN 3 MG TABLET PO (22:09)
[2022-09-12] MEDS: HEPARIN/D5w 25,000 UNITS 25,000 UNITS/250 ML IV.SOLN. 16 UNITS CONT INF (22:10)
[2022-09-13] VITALS (44 sets, daily range): BP systolic 75–124; BP diastolic 60–105; PULSE 70–147; RESP 15–29; TEMP 36.5–36.7; O2SAT 91–97
[2022-09-13 02:32] LABS: Partial Thromboplast Time 59.7 Seconds (24.1-36.2)
[2022-09-13 02:51] LABS: Anion Gap 7 (5-15); BUN 18 mg/dL (7-18); BUN/Creat Ratio 19.3 RATIO (10-20); Calcium,Total 8.9 mg/dL (8.5-10.1); Chloride 105 mmol/L (98-107); Creatinine, Serum 0.93 mg/dL (0.70-1.30); EST Glomerular Filtration Rate 86 mL/min (>60); Est Glom Filt Rate - Afr Amer 104 mL/min (>60); Estimated Creatinine Clearance 83.44 ml/min; Glucose 104 mg/dL (74-106); Potassium 3.7 mmol/L (3.5-5.1); Sodium Level 137 mmol/L (136-145)
--- NOTE | 2022-09-13 05:00 | EKG12_ITS ---
Test Reason : AM EKG Blood Pressure : / mmHG Vent. Rate : 101 BPM Atrial Rate : 000 BPM P-R Int : 000 ms QRS Dur : 108 ms QT Int : 400 ms P-R-T Axes : 000 051 061 degrees QTc Int : 518 ms Atrial fibrillation with rapid ventricular response with premature ventricular or aberrantly conducte d complexes Low voltage QRS Abnormal ECG When compared with ECG of 01-APR-2021 09:17, Atrial fibrillation has replaced Sinus rhythm Nonspecific T wave abnormality no longer evident in Inferior leads Confirmed by DEVANTE HERNANDEZ, RAMIN ([id number]), news editor DEVYN ANTUNEZ ([id number]) on 09/13/2022 12:49:00 PM Referred By: JOSE GUADALUPE Confirmed By:RAMIN LOW MD
[2022-09-13] MEDS: Aspirin 81 MG TAB.CHEW PO (05:49)
--- NOTE | 2022-09-13 09:36 | NURSING ---
Report called to [place] in [employer].
--- NOTE | 2022-09-13 11:11 | PN.CARD_ITS ---
Subjective Subjective The patient states he feels better today. He feels that his breathing has improved. Objective Data Vital Signs: Vital Signs Temp Pulse Resp BP Pulse Ox O2 Del Method O2 Flow Rate 97.9 F 92 20 H 89/71 L 92 Room Air 2 09/13/22 05:45 09/13/22 09:01 09/13/22 09:01 09/13/22 09:01 09/13/22 09:01 09/13/22 09:01 09/13/22 07:30 Oxygen Flow Rate (L/min) 2 Oxygen Delivery Method Room Air Weight: 250 lb 3.594 oz Body Mass Index (BMI) 33.9 Intake & Output: Intake and Output for Last 24 Hours 09/11/22 09/12/22 09/13/22 23:59 23:59 23:59 Intake Total 128.83 / 428.83 2208.03 / 2208.03 109.40 / 109.40 Output Total 2325 / 2325 800 / 800 Balance 128.83 / 53.83 -116.97 / -116.97 -690.60 / -690.60 Lab / Micro Data Result Diagrams: 09/12/22 05:40 09/13/22 02:05 Labs: Laboratory Results - last 24 hr 09/12/22 13:09: APTT 46.2 H 09/12/22 19:54: APTT 47.7 H 09/13/22 02:05: Sodium 137, Potassium 3.7, Chloride 105, Carbon Dioxide 25.0, Anion Gap 7, BUN 18, Creatinine 0.93, Estim Creat Clear Calc 83.44, Est GFR (MDRD) Af Amer 104, Est GFR (MDRD) Non-Af 86, BUN/Creatinine Ratio 19.3, Glucose 104, Calcium 8.9 09/13/22 02:05: APTT 59.7 H Cardiology Labs/Tests 09/12/22 13:09: APTT 46.2 H 09/12/22 19:54: APTT 47.7 H 09/13/22 02:05: Sodium 137, Potassium 3.7, Chloride 105, Carbon Dioxide 25.0, Anion Gap 7, BUN 18, Creatinine 0.93, Est GFR (MDRD) Af Amer 104, Est GFR (MDRD) Non-Af 86, BUN/Creatinine Ratio 19.3, Glucose 104, Calcium 8.9 09/13/22 02:05: APTT 59.7 H Rhythm: Atrial fibrillation EKG: Atrial fibrillation; PVCs; low voltage QRS-limb lengths ECHO: Left ventricle: Dilated; globally dysfunctional; estimated LVEF 20% Mild mitral enlargement Moderate MR Mild to moderate TR Mild focal aortic valve calcification Mildly dilated aortic root Trivial pericardial effusion with no cardiac tamponade physiology Estimated RV systolic pressure 35 mmHg Diastolic function: Indeterminate Please see complete/official report Physical Exam Const alert, oriented x3, no apparent distress and healthy appearing Orientation / Consciousness: awake HEENT normocephalic, head/scalp atraumatic and hearing grossly normal bilaterally Eyes PERRL, EOMs intact bilaterally, conjunctivae normal and no scleral icterus Neck full ROM, supple and no JVD Carotids: normal carotid upstroke Resp normal respiratory effort Auscultation: diminished lung sounds bilateral (Somewhat improved compared to the previous examination) lower (Right greater than left) Cardio Rhythm: abnormal rhythm irregularly irregular Heart Sounds: S1 normal and S2 normal GI normal to inspection, nondistended, normoactive bowel sounds Extremity no pedal edema Skin no rashes or lesions noted Psych mental status grossly normal Assessment & Plan Assessment/Plan (1) Atrial fibrillation: PLAN: The patient presents with atrial fibrillation. The etiology may be multifactorial. This could be related to a combination of age, potentially his recent COVID-19, and undiagnosed underlying cardiovascular disease process, as he has not been found to have obvious evidence of thromboembolic disease such as pulmonary emboli or other definitive issues to explain it thus far. At the moment he will continue to be monitored. He will continue medical th erapy with rate control therapy and anticoagulation. Over time his medications can be adjusted. Depending upon his clinical course he may need addition of antiarrhythmic therapy. He may eventually need attempts at regaining sinus rhythm with synchronized biphasic DC cardioversion. (2) CHF (congestive heart failure): PLAN: The patient has findings compatible with CHF. Is unclear at this time whether this is related to a tachycardic induced event from his atrial fibril lation versus another CAD or non-CAD related etiology. It appears at the present time, based upon his echocardiographic findings, that this is systolic mediated. At the present time he will continue medical management which will include IV diuretic therapy. (3) Non-ST elevation (NSTEMI) myocardial infarction: PLAN: The patient's cardiac enzymes are declining. His ECG is as noted. Its unclear at this time whether his abnormal troponin I levels compatible with a non-ST segment elevation FL represent a primary type I event versus being a type II event brought out by his atrial dysrhythmia and his congestive heart failure, etc. At the moment he will continue to be monitored. His echocardiogram is noted. He has pending further evaluation with a diagnostic cardiac catheterization. In the interim he will continue medical management. (4) Cardiomyopathy: PLAN: His echocardiogram suggest findings compatible with an underlying cardiomy opathy. It is unclear whether this is a tachycardic induced event versus a nontachycardic induced event and/or whether it has any relationship with his previous report of COVID-19 exposure. He will continue his evaluation for the possibility of underlying CAD contributing to this finding with a diagnostic cardiac catheterization. In the interim he will continue medical therapy. (5) Valvular heart disease: PLAN: He does have an element of valvular heart disease with MR and TR. This may be related to his underlying cardiomyopathy and subsequent valvular dysfunction. He will continue medical therapy and follow-up. (6) COVID-19: PLAN: The patient states he had been diagnosed with COVID-19. He states he remained home for his 5 days of quarantine. 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 He states he is greater than 10 days from his original event. Addt'l Comments This note was generated using a voice recognition system and there may be incorrect words, spelling or punctuation that were not noted when reviewing the office note prior to saving. Procedure Criteria Type of Procedure Procedure Type: Elective Elective Risks - COVID COVID Risk Discussion: The surgeon/proceduralist and patient have discussed in detail the risk of exposure to and/or potential harm posed by the COVID-19 virus with having a surgery/procedure at this time versus the risk of delaying the surgery/procedure. It is not possible to know either the risk of delaying the surgery or procedure or chance of getting an infection with perfect accuracy, but a joint decision was made between the patient and the surgeon/proceduralist to proceed at this time with the scheduled surgery/procedure as indicated on the consent form.
--- NOTE | 2022-09-13 12:03 | CL.D_ITS ---
Patient Name: MAIA ESTRAAD Study Date: 09/13/2022 Performing: Jose Elias Chavarria MD Ht: 72 inches 182.88 cm : 1955 Wt: 250.6 lbs 113.5 kg Age: 67 Gender: male BSA: 2.34 PROCEDURE(S) PERFORMED [id number]-([id number])[facility] CLINICAL PROFILE AND INDICATIONS Indications: Cardiac Arrythmia, Cardiomyopathy Heart Failure: NYHA Class: 3, Newly Diagnosed: Yes, Heart Failure Type: Systolic Stress/Imaging Stress/Image Study Performed: No Angina Classification Anginal Classification w/in 2 Weeks: Anginal Equivalent Dyspnea CAD Presentations: Non-STEMI. CONCLUSIONS Elevated Left Ventricular End Diastolic Pressure [place] Multivessel CAD (non obstructive) RECOMMENDATIONS Risk factor modification Medical therapy DESCRIPTION OF PROCEDURE The patient arrived to the procedure lab. The risks and benefits of the procedure as well as a full description of our services here and current unavailability of surgical backup were fully explained to the patient and/or their significant other prior to the catheterization. The Timeout was completed, verifying the correct patient and procedure. The patient's procedural site was prepped and draped in the usual fashion. Local anesthetic was given subcutaneously to right radial region with Lidocaine 2%. Using a modified Seldinger technique, arterial access was obtained via the right radial artery, a 6Fr sheath was inserted. Right Coronary Artery selective angiography was then performed in multiple views using a 5 Fr. 4.0 [place] catheter. Left Coronary Artery selective angiography was performed in multiple views using a 5 Fr. 4.0 [place] catheter. LV to AO pullback pressures were then recorded.The arterial sheath was pulled and a TR Band was applied for hemostasis CORONARY ANGIOGRAPHY DOMINANCE: Right Dominant LEFT HEART ASSESSMENT Left Ventricular Ejection Fraction: Not assessed Elevated Left Ventricular End Diastolic Pressure LVEDP: 17 mmHg LEFT MAIN: Angiographically normal LEFT ANTERIOR DESCENDING ARTERY: Mild luminal irregularities less than 30% CIRCUMFLEX ARTERY: Mild luminal irregularities less than 30% RAMUS: Mild luminal irregularities less than 30% RIGHT CORONARY ARTERY: Mild luminal irregularities COMPLICATIONS No Complications PROCEDURE MEDICATIONS Versed 1 mg IV Fentanyl 50 mcg IV Oxygen: 2 L/min via nasal cannula 11:26:50 Heparin given IA 09/13/2022 11:24:37 Verapamil 2.5mg, Ntg 100mcgs, 3000 units of Heparin given IA 09/13/2022 11:24:37 SUMMARY OF HEMODYNAMIC DATA Time AIR REST ECG 11:07:49 AO 89/59 (71) SA 11:25:57 LV 82/3, 9 11:35:31 LV 91/10, 17 11:35:40 LVp 89/7, 18 11:35:49 AOp 95/60 (73) 11:35:56 Signed By Jose Elias Chavarria MD On 09/13/2022 12:02:51 Jose Elias Chavarria MD
--- NOTE | 2022-09-13 12:26 | PCM.PN.HOSP ---
Subjective Subjective DOS: 09/13/2022 CC: Intermittently short of breath Had cardiac cath with nonobstructive coronary artery disease but reduced EF. Has remained in A. fib with heart rate low 100s. Reports that overall he is feeling better occasionally when heart rate is faster he will feel slightly short of breath. Had Lasix and is urinating very well. Denies any chest pain at this time, no other complaints. Objective Data Objective Data Vital Signs: Vital Signs Temp Pulse Resp BP Pulse Ox O2 Del Method O2 Flow Rate 97.7 F L 99 20 H 98/79 91 Room Air 2 09/13/22 11:57 09/13/22 12:15 09/13/22 12:15 09/13/22 12:15 09/13/22 12:15 09/13/22 12:15 09/13/22 07:30 Oxygen Flow Rate (L/min) 2 Oxygen Delivery Method Room Air Weight: 113.5 kg Body Mass Index (BMI) 33.9 Intake & Output: Intake and Output for Last 24 Hours 09/11/22 09/12/22 09/13/22 23:59 23:59 23:59 Intake Total 128.83 / 428.83 2208.03 / 2208.03 171.40 / 171.40 Output Total 2325 / 2325 1500 / 1500 Balance 128.83 / 53.83 -116.97 / -116.97 -1328.60 / -1328.60 Lab / Micro Data Result Diagrams: 09/12/22 05:40 09/13/22 02:05 Labs: Laboratory Results - last 24 hr 09/12/22 13:09: APTT 46.2 H 09/12/22 19:54: APTT 47.7 H 09/13/22 02:05: Sodium 137, Potassium 3.7, Chloride 105, Carbon Dioxide 25.0, Anion Gap 7, BUN 18, Creatinine 0.93, Estim Creat Clear Calc 83.44, Est GFR (MDRD) Af Amer 104, Est GFR (MDRD) Non-Af 86, BUN/Creatinine Ratio 19.3, Glucose 104, Calcium 8.9 09/13/22 02:05: APTT 59.7 H Physical Exam Const alert and no apparent distress Constitutional Narrative: Oriented HEENT normocephalic and head/scalp atraumatic Eyes Eyes Narrative: EOM grossly intact, anicteric Neck supple Resp normal respiratory effort and clear to auscultation bilaterally Cardio Cardio Narrative: Irregular rhythm, heart rate 100s GI soft to palpation, non-tender and non-distended Extremity Extremity Narrative: No edema appreciated Neuro moves all extremities Neuro Narrative: No overt focal deficits appreciated Psych Psych Narrative: Cooperative Assessment & Plan Assessment/Plan (1) Hypoxia: PLAN: Plan 1. New onset A. fib with RVR No known history of atrial fibrillation Followed by cardiology Cardiac cath 09/13 without any obstructive artery disease Had been hypotensive and medications had been held Diltiazem and metoprolol been discontinued Discussed with Dr. Chavarria who is going to adjust medications further once blood pressure improves On heparin drip Got a dose of digoxin today by Dr. Chavarria #2 heart failure with reduced ejection fraction EF 20% Likely due to tachyarrhythmia Cardiology following, will need guideline directed medical therapy Has intermittently received IV Lasix #3 type II NSTEMI Secondary to A. fib with RVR Cardiac cath without obstructing disease, no intervention warranted at this time #DVT ppx: On heparin drip at this time Sirisha Avila MD Charges/Coding Visit Charges Inpatient E&M: 45955 Subs Hosp L2
[2022-09-13] MEDS: Potassium Chloride Oral Tablet 20 MEQ PO (12:30)
[2022-09-13] MEDS: 0.9% Normal Saline 1,000 ML 50 ML IV (12:31)
[2022-09-13] MEDS: Furosemide 20 MG/2 ML VIAL IV (12:33)
[2022-09-13] MEDS: 0.9% Saline Lock 10 ML Syringe IV (12:37)
[2022-09-13] MEDS: Digoxin 250 MCG/ML Ampul 500 MCG IV (13:20)
--- NOTE | 2022-09-13 13:25 | CASEMGMT ---
RN SATISH Face to Face with patient for initial transition planning/care coordination assessment. RN CM introduced self and role at [facility]. Patient lying in bed, alert and oriented, at bedside. Patient willing to participate in assessment and is able to answer all questions appropriately. Care providers, pharmacy, and demographics verified. Patient wishes to discharge home, denies need for home health at this time. Patient states he has no further needs or concerns at this time. CM to follow for discharge planning needs that may arise. PCP: Jose Specialists: none Preferred Pharmacy: [facility]; [facility] Retail at discharge. Insurance: self pay, has [employer] Prescription Benefit: self pay Living Will/HPOA: in the process of completing LNOK: Living Arrangements: Patient lives with in a 3 story home with bed and bath on first floor, 4 steps and railing to enter the home. Patient is independent and able to ambulate stairs at home. Transportation: self, DME/HHC: Patient states he has cane. No previous HHC or SNF. Disposition Plan: Patient to discharge home with family support and follow-up plans in place. Nona SANCHEZ, RN, CM
--- NOTE | 2022-09-13 14:37 | CASEMGMT ---
Social Work Consult: Self pay Referral source: Self referral due to self pay status. This medical social consultant met with patient and patient spouse in room. Introduced self and medical social consultant role. Patient agreeable to speak with this medical social consultant. Patient agreeable to this medical social consultant speaking openly with patient spouse present. This medical social consultant broached conversation of self pay status. Patient reports to have a fund through patient [employer] that patient submits medical bills to. Patient did request number to contact to discuss self-pay/bill and options. This medical social consultant provided patient with contact number for patient public health training assistant printing sales representative. Patient denies concerns on returning to community. Alis Parada MSW, BEE
[2022-09-13] MEDS: Digoxin 250 MCG/ML Ampul IV (18:29)
[2022-09-13] MEDS: Tamsulosin HCl 0.4 MG Capsule PO (18:34)
[2022-09-13] MEDS: Amiodarone 360 MG in Dextrose 5% Viaflo Bag 192.8 ML 33.3 MG CONT INF (18:42)
[2022-09-13] MEDS: Atorvastatin Calcium 20 MG Tablet PO (21:25)
[2022-09-14] VITALS (33 sets, daily range): BP systolic 89–130; BP diastolic 55–97; PULSE 81–155; RESP 15–22; TEMP 36.6–37; O2SAT 91–97
[2022-09-14 00:40] LABS: Partial Thromboplast Time 49.2 Seconds (24.1-36.2)
[2022-09-14] MEDS: Amiodarone 360 MG in Dextrose 5% Viaflo Bag 192.8 ML 16.7 MG CONT INF ×2 (01:40→14:02)
[2022-09-14] MEDS: 0.9% Saline Lock 10 ML Syringe IV (01:41)
[2022-09-14] MEDS: HEPARIN/D5w 25,000 UNITS 25,000 UNITS/250 ML IV.SOLN. 17 UNITS CONT INF (04:42)
--- NOTE | 2022-09-14 05:55 | RAD_ITS ---
STUDY: X-RAY CHEST REASON FOR EXAM: Male, 67 years old. Congestive heart failure. TECHNIQUE: PA and lateral views of the chest. COMPARISON: September 11, 2022. April 01, 2021. CTA chest September 12, 2022. FINDINGS: Mild density right lung base. Small right pleural effusion. No pneumothorax. Upper lobes are normal. Normal size heart. Normal mediastinum and enzo. Normal visualized pulmonary arteries. Normal visualized aortic arch and descending thoracic aorta. Normal visualized thoracic spine. Normal visualized ribs, clavicles, and shoulders. There is no demonstrated abnormality of the visualized soft tissue structures of the upper abdomen. RAD/Chest PA and Lateral IMPRESSION: Small right pleural effusion with right lower lobe density probably representing subsegmental atelectasis or mild residual edema. Left lung is normal. Electronically Signed: Andrew Lam MD at 7:34 EDT Reading Location ID and State: [id number] / , Service support ,
[2022-09-14 07:15] LABS: Absolute Lymphocyte Count 1.91 X10^3/uL (0.83-4.51); Basophil# 0.07 X10^3/uL; Basophil% 0.8 % (0-1); Eosinophil# 0.27 X10^3/uL; Hematocrit 43.9 % (40-54); Lymphocyte # 1.91 X10^3/ul (0.83-4.51); Lymphocyte % 21.3 % (19-41); Mean Corp Hgb Conc 34.2 g/dL (32-36); Mean Corpuscular Hgb 29.9 pg (27.0-32.0); Mean Corpuscular Volume 87.5 fL (80-94); Mean Platelet Vol. 10.2 fl (6.2-12.0); Monocyte# 0.73 X10^3/uL; Monocyte% 8.1 % (0-10); NRBC Flagged by Analyzer 0 % (0-5); Neutrophil # 5.96 X10^3/uL (2.7-7.7); Neutrophil % 66.6 % (47-70); Platelet Count 218 K/mm3 (150-450); RBC Distribution Width CV 13.2 % (11.6-14.6); RBC Distribution Width SD 42.5 fl (35.1-43.9); Red Blood Count 5.02 M/mm3 (4.6-6.2)
[2022-09-14 07:50] LABS: AST(SGOT) 29 U/L (15-37); Alanine Aminotransfer ALT/SGPT 53 U/L (16-61); Albumin, Serum 3.3 g/dL (3.2-5.0); Alkaline Phosphatase 63 U/L (45-117); Anion Gap 6 (5-15); BUN 16 mg/dL (7-18); BUN/Creat Ratio 17.9 RATIO (10-20); Calcium,Total 8.9 mg/dL (8.5-10.1); Chloride 106 mmol/L (98-107); EST Glomerular Filtration Rate 90 mL/min (>60); Est Glom Filt Rate - Afr Amer 108 mL/min (>60); Estimated Creatinine Clearance 86.22 ml/min; Globulin 3.3 g/dL (2.2-4.2); Glucose 92 mg/dL (74-106); Protein, Total 6.6 g/dL (6.4-8.2); Sodium Level 139 mmol/L (136-145)
--- NOTE | 2022-09-14 07:52 | PCM.PN.HOSP ---
Subjective Subjective DOS: 09/14/2022 CC: Irregular heart rate Reports overall he continues to feel better, shortness of breath improving. Has had slight cough which she reports was present prior to arrival but now he is able to produce some sputum which she reports is relief. Denies any chest pain heart rate continues to be variable typically in the low 100s and is remained in A. fib. Eating fairly well, did not endorse any nausea, denies any swelling. No other complaints voiced this a.m. Objective Data Objective Data Vital Signs: Vital Signs Temp Pulse Resp BP Pulse Ox O2 Del Method O2 Flow Rate 97.9 F 124 H 20 H 110/85 H 96 Nasal Cannula 2.5 09/14/22 07:21 09/14/22 07:21 09/14/22 07:21 09/14/22 07:21 09/14/22 07:21 09/14/22 07:21 09/14/22 07:21 Oxygen Flow Rate (L/min) 2.5 Oxygen Delivery Method Nasal Cannula Weight: 106.5 kg Body Mass Index (BMI) 33.9 Intake & Output: Intake and Output for Last 24 Hours 09/12/22 09/13/22 09/14/22 23:59 23:59 23:59 Intake Total 2208.03 / 2208.03 1312.94 / 1346.24 286.09 / 286.09 Output Total 2325 / 2325 3500 / 3500 Balance -116.97 / -116.97 -2187.06 / -2153.76 286.09 / 286.09 Lab / Micro Data Result Diagrams: 09/14/22 07:05 09/14/22 07:05 Labs: Laboratory Results - last 24 hr 09/14/22 00:12: APTT 49.2 H 09/14/22 07:05: WBC 9.0, RBC 5.02, Hgb 15.0, Hct 43.9, MCV 87.5, MCH 29.9, MCHC 34.2, RDW Std Deviation 42.5, RDW Coeff of [place] 13.2, Plt Count 218, MPV 10.2, Immature Gran % (Auto) 0.200, Neut % (Auto) 66.6, Lymph % (Auto) 21.3, Stearns % (Auto) 8.1, Eos % (Auto) 3.0, Baso % (Auto) 0.8, Absolute Neuts (auto) 6.0, Absolute Lymphs (auto) 1.91, Nucleated RBC % 0 09/14/22 07:05: Sodium 139, Potassium 4.0, Chloride 106, Carbon Dioxide 27.0, Anion Gap 6, BUN 16, Creatinine 0.90, Estim Creat Clear Calc 86.22, Est GFR (MDRD) Af Amer 108, Est GFR (MDRD) Non-Af 90, BUN/Creatinine Ratio 17.9, Glucose 92, Calcium 8.9, Total Bilirubin 1.00, AST 29, ALT 53, Alkaline Phosphatase 63, Total Protein 6.6, Albumin 3.3, Globulin 3.3, Albumin/Globulin Ratio 1.0 Physical Exam Const alert and no apparent distress Constitutional Narrative: Oriented HEENT normocephalic and head/scalp atraumatic Eyes Eyes Narrative: EOM grossly intact, anicteric Neck supple Resp normal respiratory effort and clear to auscultation bilaterally Cardio Cardio Narrative: Irregular rhythm, heart rate 100s GI soft to palpation, non-tender and non-distended Extremity Extremity Narrative: No edema appreciated Neuro moves all extremities Neuro Narrative: No overt focal deficits appreciated Psych Psych Narrative: Cooperative Assessment & Plan Assessment/Plan (1) Hypoxia: PLAN: Plan 1. New onset A. fib with RVR No known history of atrial fibrillation Followed by cardiology Cardiac cath 09/13 without any obstructive artery disease Had been hypotensive and medications had been held Diltiazem and metoprolol been discontinued Discussed with Dr. Chavarria who is going to adjust medications further once blood pressure improves On heparin drip Got a dose of digoxin today by Dr. Chavarria 09/14/2022: BP beginning to improve, did receive the digoxin yesterday but heart rate has remained in the low 100s. Additionally was started on amnio drip last night. Appreciate recommendations. #2 heart failure with reduced ejection fraction EF 20% Likely due to tachyarrhythmia Cardiology following, will need guideline directed medical therapy Has intermittently received IV Lasix 09/14/2022: Continue to monitor, reports good urine output with IV Lasix. Breathing improving. Was 113.5 kg per documentation on 09/13, 09/14 documented weight 106.5 kg #3 type II NSTEMI Secondary to A. fib with RVR Cardiac cath without obstructing disease, no intervention warranted at this time #DVT ppx: On heparin drip at this time Sirisha Avila MD Charges/Coding Visit Charges Inpatient E&M: 84611 Subs Hosp L2
--- NOTE | 2022-09-14 08:10 | ECHOTEE_ITS ---
Reason For Study: AFIB/FLUTTER Medication KRYSTIN probe 6VT-D (SN [id number]) passed with minimal difficulty. No complications were noted. Cetacaine Topical [place] given X3 orally. Versed 1 mg given slow IVP. Fentanyl 50 mcg given slow IVP. Performed a rapid injection of agitated mix of 9 cc saline and 1cc air to assess for atrial septal defect. x 2. Left Ventricle Severe global left ventricular systolic dysfunction. The estimated ejection fraction is 20 %. Right Ventricle Normal systolic function. Atria No doppler evidence for ASD. Bubble contrast study negative for right to left interatrial shunt. The left atrium is mildly enlarged. There is mild sponatenous contrast in the left atrium. No thrombus is detected in the left atrial appendage. Normal right atrium. There is mild sponatenous contrast in the right atrium. No right atrial/atrial appendage thrombus identified. Mitral Valve Mild diffuse mitral valve thickening. Moderate (2+) mitral valve insufficiency. Tricuspid Valve Normal tricuspid valve. Mild tricuspid valve insufficiency. Aortic Valve Trisinus/trileaflet aortic valve. Mild diffuse aortic valve thickening. Mild focal aortic valve calcification. Pulmonic Valve The pulmonic valve is not well visualized. Trivial pulmonic valve insufficiency. Vessels Normal-appearing thoracic aorta. Pericardium No pericardial effusion. ECHO/Echo Transesophageal (KRYSTIN) Interpretation Summary Severe global left ventricular systolic dysfunction. The estimated ejection fraction is 20 %. The left atrium is mildly enlarged. There is mild sponatenous contrast in the left atrium. No thrombus is detected in the left atrial appendage. There is mild sponatenous contrast in the right atrium. Mild diffuse mitral valve thickening. Moderate (2+) mitral valve insufficiency. Mild tricuspid valve insufficiency. Mild diffuse aortic valve thickening. Mild focal aortic valve calcification. Trivial pulmonic valve insufficiency. Bubble contrast study negative for right to left interatrial shunt. Ordering Physician: Jose Elias Chavarria Referring Physician: Phil House Performed By: Mary Ann Davis, KATIECS, RVT
--- NOTE | 2022-09-14 08:11 | EKG12_ITS ---
Test Reason : AM EKG Blood Pressure : / mmHG Vent. Rate : 098 BPM Atrial Rate : 000 BPM P-R Int : 000 ms QRS Dur : 104 ms QT Int : 390 ms P-R-T Axes : 000 051 042 degrees QTc Int : 497 ms Atrial fibrillation with premature ventricular or aberrantly conducted complexes Low voltage QRS (Limb Leads) Abnormal ECG Confirmed by PELON HERNANDEZ, JANET ([id number]), news editor DEVYN ANTUNEZ ([id number]) on 09/15/2022 9:41:28 AM Referred By: JOSE GUADALUPE Confirmed By:JANET BIRD MD
--- NOTE | 2022-09-14 08:11 | PN.CARD_ITS ---
Subjective Subjective The patient is alert. He states he did feel as if he needed oxygen last night. He is currently wearing O2 nasal cannula. Otherwise he denies any chest discomfort. Objective Data Vital Signs: Vital Signs Temp Pulse Resp BP Pulse Ox O2 Del Method O2 Flow Rate 97.9 F 124 H 20 H 110/85 H 96 Nasal Cannula 2.5 09/14/22 07:21 09/14/22 07:21 09/14/22 07:21 09/14/22 07:21 09/14/22 07:21 09/14/22 07:21 09/14/22 07:21 Oxygen Flow Rate (L/min) 2.5 Oxygen Delivery Method Nasal Cannula Weight: 234 lb 12.677 oz Body Mass Index (BMI) 33.9 Intake & Output: Intake and Output for Last 24 Hours 09/12/22 09/13/22 09/14/22 23:59 23:59 23:59 Intake Total 2208.03 / 2208.03 1312.94 / 1346.24 286.09 / 286.09 Output Total 2325 / 2325 3500 / 3500 Balance -116.97 / -116.97 -2187.06 / -2153.76 286.09 / 286.09 Lab / Micro Data Result Diagrams: 09/14/22 07:05 09/14/22 07:05 Labs: Laboratory Results - last 24 hr 09/14/22 00:12: APTT 49.2 H 09/14/22 07:05: WBC 9.0, RBC 5.02, Hgb 15.0, Hct 43.9, MCV 87.5, MCH 29.9, MCHC 34.2, RDW Std Deviation 42.5, RDW Coeff of Chencho 13.2, Plt Count 218, MPV 10.2, Immature Gran % (Auto) 0.200, Neut % (Auto) 66.6, Lymph % (Auto) 21.3, Edmunds % (Auto) 8.1, Eos % (Auto) 3.0, Baso % (Auto) 0.8, Absolute Neuts (auto) 6.0, Absolute Lymphs (auto) 1.91, Nucleated RBC % 0 09/14/22 07:05: Sodium 139, Potassium 4.0, Chloride 106, Carbon Dioxide 27.0, Anion Gap 6, BUN 16, Creatinine 0.90, Estim Creat Clear Calc 86.22, Est GFR (MDRD) Af Amer 108, Est GFR (MDRD) Non-Af 90, BUN/Creatinine Ratio 17.9, Glucose 92, Calcium 8.9, Total Bilirubin 1.00, AST 29, ALT 53, Alkaline Phosphatase 63, Total Protein 6.6, Albumin 3.3, Globulin 3.3, Albumin/Globulin Ratio 1.0 Cardiology Labs/Tests 09/14/22 00:12: APTT 49.2 H 09/14/22 07:05: WBC 9.0, RBC 5.02, Hgb 15.0, Hct 43.9, MCV 87.5, MCH 29.9, MCHC 34.2, Plt Count 218, MPV 10.2, Immature Gran % (Auto) 0.200, Neut % (Auto) 66.6, Lymph % (Auto) 21.3, Edmunds % (Auto) 8.1, Eos % (Auto) 3.0, Baso % (Auto) 0.8, Absolute Neuts (auto) 6.0, Nucleated RBC % 0 09/14/22 07:05: Sodium 139, Potassium 4.0, Chloride 106, Carbon Dioxide 27.0, Anion Gap 6, BUN 16, Creatinine 0.90, Est GFR (MDRD) Af Amer 108, Est GFR (MDRD) Non-Af 90, BUN/Creatinine Ratio 17.9, Glucose 92, Calcium 8.9, Total Bilirubin 1.00 Rhythm: Atrial fibrillation Physical Exam Const alert, oriented x3, no apparent distress and healthy appearing Orientation / Consciousness: awake HEENT normocephalic, head/scalp atraumatic and hearing grossly normal bilaterally Eyes PERRL, EOMs intact bilaterally, conjunctivae normal and no scleral icterus Neck full ROM, supple and no JVD Carotids: normal carotid upstroke Resp normal respiratory effort Auscultation: diminished lung sounds bilateral (Somewhat improved compared to the previous examination) lower (Right greater than left) Cardio Rhythm: abnormal rhythm irregularly irregular Heart Sounds: S1 normal and S2 normal GI normal to inspection, nondistended, normoactive bowel sounds Extremity no pedal edema Skin no rashes or lesions noted Psych mental status grossly normal Assessment & Plan Assessment/Plan (1) Atrial fibrillation: PLAN: The patient presents with atrial fibrillation. The etiology may be multifactorial. This could be related to a combination of age, potentially his recent COVID-19, and undiagnosed underlying cardiovascular disease process, as he has not been found to have obvious evidence of thromboembolic disease such as pulmonary emboli or other definitive issues to explain it thus far. At the moment he will continue to be monitored. He will continue medical therapy with rate control therapy and anticoagulation. As he is remaining in atrial fibrillation with a ventricular rate difficult to control despite attempts at medications and taking into consideration medication options/limitations based upon concerns of lower blood pressures at times, he has been recommended for further evaluation/therapy with KRYSTIN guided synchronized biphasic DC cardioversion. The procedure and risks have been discussed with him. He was agreeable to this approach. (2) CHF (congestive heart failure): PLAN: The patient has findings compatible with CHF. It appears at the present time, based upon his echocardiographic findings, that this is systolic mediated. At the present time he will continue medical management which will include IV diuretic therapy. (3) Non-ST elevation (NSTEMI) myocardial infarction: PLAN: The patient's cardiac enzymes are declining. His ECG is as noted. Its unclear at this time whether his abnormal troponin I levels compatible with a non-ST segment elevation WA represent a primary type I event versus being a type II event brought out by his atrial dysrhythmia and his congestive heart failure, etc. At the moment he will continue to be monitored. His echocardiogram is noted. He has undergone further evaluation with diagnostic cardiac catheterization. It appears that he has a type II event based upon his atrial fibrillation and CHF as he did not appear to have angiographically significant/obstructive coronary artery disease. (4) Cardiomyopathy: PLAN: His echocardiogram suggest findings compatible with an underlying cardiomyopathy. It is unclear whether this is a tachycardic induced event versus a nontachycardic induced event and/or whether it has any relationship with his previous report of COVID-19 exposure. His cardiac catheterization did not demonstrate angiographically significant/obstructive coronary disease to explain his cardiomyopathy. He will continue medical therapy as his clinical status and vital signs a while. (5) Valvular heart disease: PLAN: He does have an element of valvular heart disease with MR and TR. This may be related to his underlying cardiomyopathy and subsequent valvular dysfunction. He will continue medical therapy and follow-up. (6) COVID-19: PLAN: The patient states he had been diagnosed with COVID-19. He states he remained home for his 5 days of quarantine. 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 He states he is greater than 10 days from his original event. As he is going to undergo an aerosolize procedure he will be reassessed for COVID-19 with additional evaluation and care as deemed appropriate at the time. Addt'l Comments The patient's case has been discussed and reviewed at length with the patient, his spouse, and his daughter. This note was generated using a voice recognition system and there may be incorrect words, spelling or punctuation that were not noted when reviewing the office note prior to saving.
[2022-09-14] MEDS: Aspirin 81 MG TAB.CHEW PO (08:15)
[2022-09-14] MEDS: Potassium Chloride Oral Tablet 20 MEQ PO (08:15)
[2022-09-14] MEDS: Furosemide 20 MG/2 ML VIAL IV ×2 (08:16→15:19)
[2022-09-14 08:22] LABS: Partial Thromboplast Time 55.9 Seconds (24.1-36.2)
--- NOTE | 2022-09-14 13:15 | PRO.PCM_ITS ---
Procedure Report Date of Procedure: 09/14/22 CONSCIOUS SEDATION REPORT DATE OF SERVICE: September 14, 2022 BRIEF HISTORY OF PRESENT ILLNESS: The patient is a 67-year-old male, currently admitted at [facility], after presenting with atrial fibrillation, congestive heart failure and NSTEMI. The patient underwent a KRYSTIN earlier today which revealed an ejection fraction of approximately 20%. He is currently on systemic anticoagulation with heparin. The patient is a lifelong non-smoker. He denies ever having been diagnosed with obstructive sleep apnea. The patient denied any prior anesthetic complications. PHYSICAL EXAMINATION: VITAL SIGNS: Reviewed and were acceptable. GENERAL: The patient is a male, in no apparent distress, speaking in full sentences. HEENT: Normocephalic, atraumatic. Mucous membranes are moist and pink. Good mouth opening noted. Trachea is midline. Good neck mobility. CHEST: S1, S2 irregularly irregular. No murmurs, rubs or gallops were noted. LUNGS: Clear to auscultation bilaterally without appreciable wheezes, rales or rhonchi. ABDOMEN: Soft, nontender, nondistended. Positive bowel sounds. EXTREMITIES: There is no clubbing, cyanosis or edema. ASA Class: II DESCRIPTION OF PROCEDURE: After confirmation of informed consent, the patient's anesthesia plan was revi ewed in detail. Etomidate was chosen. Risks and benefits were reviewed and the patient agreed to proceed. At 1224, the patient was given 6 mg of etomidate. The patient achieved an appropriate level of sedation and was given a 200 joule synchronized cardioversion by Dr. Chavarria at the bedside. This was successful in achieving normal sinus rhythm. The patient was monitored until 1236, at whic h time he reached his baseline mental status and function. The patient tolerated the procedure well. COMPLICATIONS: None ESTIMATED BLOOD LOSS: None RECOMMENDATIONS: Okay to recover in usual fashion. Procedures Pulmonary 9xxxx: [id number] Con Sedation
--- NOTE | 2022-09-14 13:47 | EKG12_ITS ---
Test Reason : POST Blood Pressure : / mmHG Vent. Rate : 087 BPM Atrial Rate : 088 BPM P-R Int : 212 ms QRS Dur : 106 ms QT Int : 400 ms P-R-T Axes : 035 004 055 degrees QTc Int : 481 ms Sinus rhythm with sinus arrhythmia with 1st degree A-V block Low voltage QRS (Limb Leads) Prolonged QT Abnormal ECG Confirmed by PELON HERNANDEZ, JANET ([id number]), film editor supervisor DEVYN ANTUNEZ ([id number]) on 09/16/2022 7:45:15 AM Referred By: Confirmed By:JANET BIRD MD
[2022-09-14 14:20] LABS: Partial Thromboplast Time 54.5 Seconds (24.1-36.2)
--- NOTE | 2022-09-14 14:43 | CARDIOVERS_ITS ---
Cardioversion Cardioversion: Date: 09-14-2022 Procedure: Synchronized Biphasic DC Cardioversion Indications: Atrial fibrillation Consent: Per the Patient Anesthesia: per Dr. Falk of pulmonology and critical care medicine with etomidate 6 mg IV push total Procedure: Synchronized Biphasic DC Cardioversion: 200 J x 1: Result: Sinus rhythm; PACs Complications: no apparent complications This note was generated with [employer] software. It may contain incorrect words, spelling, and punctuation that were not noted in checking the note before signing.
[2022-09-14] MEDS: Tamsulosin HCl 0.4 MG Capsule PO (16:54)
[2022-09-14] MEDS: HEPARIN/D5w 25,000 UNITS 25,000 UNITS/250 ML IV.SOLN. 18 UNITS CONT INF (18:37)
[2022-09-14] MEDS: Carvedilol 3.125 MG TABLET PO (21:59)
[2022-09-14] MEDS: SACUBITRIL/VALSARTAN 24/26 MG TABLET 1 EACH PO (21:59)
[2022-09-14] MEDS: Atorvastatin Calcium 20 MG Tablet PO (21:59)
[2022-09-15] VITALS (18 sets, daily range): BP systolic 87–139; BP diastolic 62–90; PULSE 72–86; RESP 13–20; TEMP 36.2–36.8; O2SAT 89–96
[2022-09-15] MEDS: MELATONIN 3 MG TABLET PO (00:19)
[2022-09-15] MEDS: Amiodarone 360 MG in Dextrose 5% Viaflo Bag 192.8 ML 16.7 MG CONT INF (02:14)
[2022-09-15 04:20] LABS: Absolute Lymphocyte Count 1.99 X10^3/uL (0.83-4.51); Absolute Neutrophil Count 5.6 X10^3/uL (2.0-7.7); Basophil# 0.06 X10^3/uL; Basophil% 0.7 % (0-1); Eosinophil# 0.24 X10^3/uL; Eosinophils% 2.7 % (0-5); Hematocrit 45.2 % (40-54); Hemoglobin 15.7 g/dL (13.0-16.5); Lymphocyte # 1.99 X10^3/ul (0.83-4.51); Lymphocyte % 22.5 % (19-41); Mean Corp Hgb Conc 34.7 g/dL (32-36); Mean Corpuscular Hgb 30.3 pg (27.0-32.0); Mean Corpuscular Volume 87.3 fL (80-94); Mean Platelet Vol. 10.5 fl (6.2-12.0); Monocyte# 0.92 X10^3/uL; Monocyte% 10.4 % (0-10); NRBC Flagged by Analyzer 0 % (0-5); Neutrophil % 63.4 % (47-70); Platelet Count 237 K/mm3 (150-450); RBC Distribution Width CV 13.3 % (11.6-14.6); RBC Distribution Width SD 42.4 fl (35.1-43.9); Red Blood Count 5.18 M/mm3 (4.6-6.2); White Blood Count 8.8 K/mm3 (4.4-11.0)
[2022-09-15 04:31] LABS: Partial Thromboplast Time 71.7 Seconds (24.1-36.2)
[2022-09-15 04:38] LABS: Anion Gap 8 (5-15); BUN 16 mg/dL (7-18); BUN/Creat Ratio 16.9 RATIO (10-20); Calcium,Total 8.9 mg/dL (8.5-10.1); Chloride 103 mmol/L (98-107); Creatinine, Serum 0.95 mg/dL (0.70-1.30); EST Glomerular Filtration Rate 84 mL/min (>60); Est Glom Filt Rate - Afr Amer 101 mL/min (>60); Estimated Creatinine Clearance 81.68 ml/min; Glucose 104 mg/dL (74-106); Potassium 3.9 mmol/L (3.5-5.1); Sodium Level 137 mmol/L (136-145)
[2022-09-15] MEDS: Acetaminophen 500 MG Tablet 1000 MG PO (04:45)
--- NOTE | 2022-09-15 08:16 | PCM.PN.CARD ---
Subjective Subjective The patient states he can feel that his heartbeat is back to normal. He believes his breathing has improved overall. He slept supine yesterday evening/night without any obvious difficulties from his standpoint. Objective Data Vital Signs: Vital Signs Temp Pulse Resp BP Pulse Ox O2 Del Method O2 Flow Rate 98.2 F 76 15 102/72 93 Room Air 2 09/15/22 06:00 09/15/22 07:00 09/15/22 06:00 09/15/22 06:00 09/15/22 07:56 09/15/22 07:56 09/15/22 00:25 Oxygen Flow Rate (L/min) 2 Oxygen Delivery Method Room Air Weight: 229 lb 15.074 oz Body Mass Index (BMI) 33.9 Intake & Output: Intake and Output for Last 24 Hours 09/13/22 09/14/22 09/15/22 23:59 23:59 23:59 Intake Total 1312.94 / 1346.24 1624.69 / 1641.39 468.48 / 468.48 Output Total 3500 / 3500 2700 / 2700 Balance -2187.06 / -2153.76 -1075.31 / -1058.61 468.48 / 468.48 Lab / Micro Data Result Diagrams: 09/15/22 04:00 09/15/22 04:00 Labs: Laboratory Results - last 24 hr 09/14/22 07:05: APTT 55.9 H 09/14/22 13:25: APTT 54.5 H 09/14/22 20:56: APTT 68.0 H 09/15/22 04:00: WBC 8.8, RBC 5.18, Hgb 15.7, Hct 45.2, MCV 87.3, MCH 30.3, MCHC 34.7, RDW Std Deviation 42.4, RDW Coeff of Chencho 13.3, Plt Count 237, MPV 10.5, Immature Gran % (Auto) 0.300, Neut % (Auto) 63.4, Lymph % (Auto) 22.5, Lawrence % (Auto) 10.4 H, Eos % (Auto) 2.7, Baso % (Auto) 0.7, Absolute Neuts (auto) 5.6, Absolute Lymphs (auto) 1.99, Nucleated RBC % 0 09/15/22 04:00: Sodium 137, Potassium 3.9, Chloride 103, Carbon Dioxide 26.0, Anion Gap 8, BUN 16, Creatinine 0.95, Estim Creat Clear Calc 81.68, Est GFR (MDRD) Af Amer 101, Est GFR (MDRD) Non-Af 84, BUN/Creatinine Ratio 16.9, Glucose 104, Calcium 8.9 09/15/22 04:00: APTT 71.7 H Micro: Microbiology 09/14/22 08:44 Nasal Secretion SARS-CoV-2 Antigen (Rapid) - Final Cardiology Labs/Tests 09/14/22 07:05: APTT 55.9 H 09/14/22 13:25: APTT 54.5 H 09/14/22 20:56: APTT 68.0 H 09/15/22 04:00: WBC 8.8, RBC 5.18, Hgb 15.7, Hct 45.2, MCV 87.3, MCH 30.3, MCHC 34.7, Plt Count 237, MPV 10.5, Immature Gran % (Auto) 0.300, Neut % (Auto) 63.4, Lymph % (Auto) 22.5, Lawrence % (Auto) 10.4 H, Eos % (Auto) 2.7, Baso % (Auto) 0.7, Absolute Neuts (auto) 5.6, Nucleated RBC % 0 09/15/22 04:00: Sodium 137, Potassium 3.9, Chloride 103, Carbon Dioxide 26.0, Anion Gap 8, BUN 16, Creatinine 0.95, Est GFR (MDRD) Af Amer 101, Est GFR (MDRD) Non-Af 84, BUN/Creatinine Ratio 16.9, Glucose 104, Calcium 8.9 09/15/22 04:00: APTT 71.7 H Rhythm: Sinus rhythm EKG: Sinus rhythm; first-degree AV block; low voltage QRS-1 plan Radiography Diagnostic Testing: Radiology Impression Chest X-Ray 09/14/22 05:55 IMPRESSION: Small right pleural effusion with right lower lobe density probably representing subsegmental atelectasis or mild residual edema. Left lung is normal. Electronically Signed: Andrew Lam MD at 7:34 EDT Reading Location ID and State: [id number] / , Service support , Transesophageal Echocardiogram 09/14/22 08:10 Interpretation Summary Severe global left ventricular systolic dysfunction. The estimated ejection fraction is 20 %. The left atrium is mildly enlarged. There is mild sponatenous contrast in the left atrium. No thrombus is detected in the left atrial appendage. There is mild sponatenous contrast in the right atrium. Mild diffuse mitral valve thickening. Moderate (2+) mitral valve insufficiency. Mild tricuspid valve insufficiency. Mild diffuse aortic valve thickening. Mild focal aortic valve calcification. Trivial pulmonic valve insufficiency. Bubble contrast study negative for right to left interatrial shunt. Ordering Physician: Jose Elias Chavarria Referring Physician: Phil House Performed By: Mary Ann Davis, RDCS, RVT Physical Exam Const alert, oriented x3, no apparent distress and healthy appearing Orientation / Consciousness: awake HEENT normocephalic, head/scalp atraumatic and hearing grossly normal bilaterally Eyes PERRL, EOMs intact bilaterally, conjunctivae normal and no scleral icterus Neck full ROM, supple and no JVD Carotids: normal carotid upstroke Resp normal respiratory effort Auscultation: diminished lung sounds right lower Cardio regular rate, regular rhythm, S1 normal heart sound and S2 normal heart sound GI normal to inspection, nondistended, normoactive bowel sounds Extremity no pedal edema Skin no rashes or lesions noted Psych mental status grossly normal Assessment & Plan Assessment/Plan (1) Atrial fibrillation: PLAN: The patient presents with atrial fibrillation. The etiology may be multifactorial. This could be related to a combination of age, potentially his recent COVID-19, and undiagnosed underlying cardiovascular disease process, as he has not been found to have obvious evidence of thromboembolic disease such as pulmonary emboli or other definitive issues to explain it thus far. He has undergone evaluation with KRYSTIN guided synchronized biphasic DC cardioversion. He did regain sinus rhythm. He will continue rate control therapy. His antiarrhythmic therapy will be changed from IV to oral. His anticoagulant therapy will be changed from IV to oral. (2) CHF (congestive heart failure): PLAN: The patient has findings compatible with CHF. It appears at the present time, based upon his echocardiographic findings, that this is systolic mediated. He does appear to be symptomatically improved and improved on examination. His IV diuretics will be altered to oral diuretics. (3) Non-ST elevation (NSTEMI) myocardial infarction: PLAN: He has undergone further evaluation with diagnostic cardiac catheterization. It appears that he has a type II event based upon his atrial fibrillation and CHF as he did not appear to have angiographically significant/obstructive coronary artery disease. He will continue medical management. (4) Cardiomyopathy: PLAN: His echocardiogram suggest findings compatible with an underlying cardiomyopathy. It is unclear whether this is a tachycardic induced event versus a nontachycardic induced event and/or whether it has any relationship with his previous report of COVID-19 exposure. His cardiac catheterization did not demonstrate angiographically significant/obstructive coronary disease to explain his cardiomyopathy. He will continue medical therapy as his clinical status and vital signs a while. Over time his left ventricle need to be followed with a transthoracic echocardiogram to monitor his left ventricular systolic function. If his systolic function does not improve then he will need to be considered for future ICD placement. (5) Valvular heart disease: PLAN: He does have an element of valvular heart disease with MR and TR. This may be related to his underlying cardiomyopathy and subsequent valvular dysfunction. He will continue medical therapy and follow-up. (6) COVID-19: PLAN: The patient states he had been diagnosed with COVID-19. He states he remained home for his 5 days of quarantine. 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 He states he is greater than 10 days from his original event. He did undergo a repeat COVID-19 examination prior to his KRYSTIN. This was negative. Procedure Criteria Type of Procedure Procedure Type: Elective Elective Risks - COVID COVID Risk Discussion: The surgeon/proceduralist and patient have discussed in detail the risk of exposure to and/or potential harm posed by the COVID-19 virus with having a surgery/procedure at this time versus the risk of delaying the surgery/procedure. It is not possible to know either the risk of delaying the surgery or procedure or chance of getting an infection with perfect accuracy, but a joint decision was made between the patient and the surgeon/proceduralist to proceed at this time with the scheduled surgery/procedure as indicated on the consent form.
[2022-09-15] MEDS: Potassium Chloride Oral Tablet 20 MEQ PO (08:20)
[2022-09-15] MEDS: Aspirin 81 MG TAB.CHEW PO (08:20)
[2022-09-15] MEDS: SACUBITRIL/VALSARTAN 24/26 MG TABLET 1 EACH PO ×2 (09:07→21:26)
[2022-09-15] MEDS: Furosemide 40 MG Tablet PO (09:07)
[2022-09-15] MEDS: Amiodarone 200 MG Tablet PO ×3 (09:07→21:26)
[2022-09-15] MEDS: Carvedilol 6.25 MG Tablet PO ×2 (09:07→21:26)
[2022-09-15] MEDS: APIXABAN 5 MG TABLET PO ×2 (09:07→21:26)
[2022-09-15 11:35] LABS: Partial Thromboplast Time 61.1 Seconds (24.1-36.2)
--- NOTE | 2022-09-15 14:40 | CASEMGMT ---
Per chart review, pt is currently on Eliquis and Entresto and is self-pay. This RN CM will be able to use coupons for a month free for both. Dr. Avila aware of all and states she will discuss with Dr. Chavarria. This RN CM to room and pt states he does have what's similar to an [facility] program as they are mennonites but that meds are always self pay. Pt updated on all regarding [facility] of Eliquis and Entresto, coupons, and also provided with [employer](Entresto) and Eliquis Rx assist program info. Pt also provided with [facility] contact info as he states he will need detailed bills regarding admission to submit to his [facility]. Plan is for pt to discharge tomorrow and CM will f/u with pt/ and physicians tomorrow. Mendez WATTS CM
--- NOTE | 2022-09-15 15:18 | PN.HOSP_ITS ---
Subjective Subjective DOS: 09/15/2022 CC: Follow-up Toney roland Has remained in sinus rhythm and is doing well, has not been up moving around an d will be doing that today after transition to oral medication. Denying any chest pain, shortness of breath is better, feels he is lost a significant amount of weight and fluid. Objective Data Objective Data Vital Signs: Vital Signs Temp Pulse Resp BP Pulse Ox O2 Del Method O2 Flow Rate 97.5 F L 77 19 H 99/80 93 Room Air 2 09/15/22 10:00 09/15/22 10:00 09/15/22 10:00 09/15/22 10:00 09/15/22 10:00 09/15/22 10:00 09/15/22 00:25 Oxygen Flow Rate (L/min) 2 Oxygen Delivery Method Room Air Weight: 104.3 kg Body Mass Index (BMI) 33.9 Intake & Output: Intake and Output for Last 24 Hours 09/13/22 09/14/22 09/15/22 23:59 23:59 23:59 Intake Total 1312.94 / 1346.24 1624.69 / 1641.39 1051.84 / 1051.84 Output Total 3500 / 3500 2700 / 2700 Balance -2187.06 / -2153.76 -1075.31 / -1058.61 1051.84 / 1051.84 Lab / Micro Data Result Diagrams: 09/15/22 04:00 09/15/22 04:00 Labs: Laboratory Results - last 24 hr 09/14/22 20:56: APTT 68.0 H 09/15/22 04:00: WBC 8.8, RBC 5.18, Hgb 15.7, Hct 45.2, MCV 87.3, MCH 30.3, MCHC 34.7, RDW Std Deviation 42.4, RDW Coeff of Chencho 13.3, Plt Count 237, MPV 10.5, Immature Gran % (Auto) 0.300, Neut % (Auto) 63.4, Lymph % (Auto) 22.5, [place] % (Auto) 10.4 H, Eos % (Auto) 2.7, Baso % (Auto) 0.7, Absolute Neuts (auto) 5.6, Absolute Lymphs (auto) 1.99, Nucleated RBC % 0 09/15/22 04:00: Sodium 137, Potassium 3.9, Chloride 103, Carbon Dioxide 26.0, Anion Gap 8, BUN 16, Creatinine 0.95, Estim Creat Clear Calc 81.68, Est GFR (MDRD) Af Amer 101, Est GFR (MDRD) Non-Af 84, BUN/Creatinine Ratio 16.9, Glucose 104, Calcium 8.9 09/15/22 04:00: APTT 71.7 H 09/15/22 10:46: APTT 61.1 H Micro: Microbiology 09/14/22 08:44 Nasal Secretion SARS-CoV-2 Antigen (Rapid) - Final Radiography Diagnostic Testing: Radiology Impression Chest X-Ray 09/14/22 05:55 IMPRESSION: Small right pleural effusion with right lower lobe density probably representing subsegmental atelectasis or mild residual edema. Left lung is normal. Electronically Signed: Andrew Lam MD at 7:34 EDT Reading Location ID and State: [id number] / , Service support , Transesophageal Echocardiogram 09/14/22 08:10 Interpretation Summary Severe global left ventricular systolic dysfunction. The estimated ejection fraction is 20 %. The left atrium is mildly enlarged. There is mild sponatenous contrast in the left atrium. No thrombus is detected in the left atrial appendage. There is mild sponatenous contrast in the right atrium. Mild diffuse mitral valve thickening. Moderate (2+) mitral valve insufficiency. Mild tricuspid valve insufficiency. Mild diffuse aortic valve thickening. Mild focal aortic valve calcification. Trivial pulmonic valve insufficiency. Bubble contrast study negative for right to left interatrial shunt. Ordering Physician: Jose Elias Chavarria Referring Physician: Phil House Performed By: Mary Ann Davis, RDCS, RVT Physical Exam Const alert and no apparent distress Constitutional Narrative: Oriented HEENT normocephalic and head/scalp atraumatic Eyes Eyes Narrative: EOM grossly intact, anicteric Neck supple Resp normal respiratory effort and clear to auscultation bilaterally Cardio Cardio Narrative: Regular rate, rate rhythm GI soft to palpation, non-tender and non-distended Extremity Extremity Narrative: No edema appreciated Neuro moves all extremities Neuro Narrative: No overt focal deficits appreciated Psych Psych Narrative: Cooperative Assessment & Plan Assessment/Plan (1) Hypoxia: PLAN: Plan 1. New onset A. fib with RVR No known history of atrial fibrillation Followed by cardiology Cardiac cath 09/13 without any obstructive artery disease Had been hypotensive and medications had been held Diltiazem and metoprolol been discontinued Discussed with Dr. Chavarria who is going to adjust medications further once blood pressure improves On heparin drip Got a dose of digoxin today by Dr. Chavarria 09/14/2022: BP beginning to improve, did receive the digoxin yesterday but heart rate has remained in the low 100s. Additionally was started on amnio drip last night. Appreciate recommendations. 09/15/2022: Doing well after KRYSTIN cardioversion. Was on heparin drip and an amiodarone drip. Has been transitioned to oral Lasix, Eliquis, amiodarone and will be up ambulating today. If does well likely discharge home tomorrow #2 heart failure with reduced ejection fraction EF 20% Likely due to tachyarrhythmia Cardiology following, will need guideline directed medical therapy Has intermittently received IV Lasix 09/14/2022: Continue to monitor, reports good urine output with IV Lasix. Breathing improving. Was 113.5 kg per documentation on 09/13, 09/14 documented weight 106.5 kg 09/15: Weight continues to decrease, and transition to oral Lasix #3 type II NSTEMI Secondary to A. fib with RVR Cardiac cath without obstructing disease, no intervention warranted at this time #DVT ppx: now on russel Avila MD Charges/Coding Visit Charges Inpatient E&M: 55646 Subs Hosp L2
--- NOTE | 2022-09-15 15:31 | NURSING ---
Pt noted to be up ambulating in hallway, tolerating well.
--- NOTE | 2022-09-15 16:28 | CHAPLAIN ---
Type of Pastoral Visit _x__ Initial Visit ___ Follow-up Visit ___ On-call Visit ___ General Patient Visit ___ Spiritual Assessment ___ Family Conference ___ Bereavement ___ Rapid Response ___ Code Blue ___ Other (describe below) Pastoral Care Referral From _x__ Patient ___ Family ___ Nurse ___ Physician ___ Graphic Editor ___ Computer Console Operator ___ Other (describe below) Sacrament/Intervention _x__ Active listening ___ Anointing ___ Worship ___ Bereavement ___ Communion ___ Mae exploration ___ _x__ Life review _x__ Prayer ___ Reconciliation ___ Sacrament of Sick ___ Supportive presence ___ Wedding ___ Other (describe below) Pastoral Comments met patient and his spouse carr he was taking walks around the hallway; pt interacts and talks; pt welcomes time for support and a prayer
[2022-09-15] MEDS: Tamsulosin HCl 0.4 MG Capsule PO (18:02)
[2022-09-15] MEDS: 0.9% Saline Lock 10 ML Syringe IV (21:26)
[2022-09-15] MEDS: Atorvastatin Calcium 20 MG Tablet PO (21:26)
[2022-09-16] VITALS (7 sets, daily range): BP systolic 93–101; BP diastolic 57–88; PULSE 68–81; RESP 14–18; TEMP 36.4–36.8; O2SAT 90–98
[2022-09-16] MEDS: Amiodarone 200 MG Tablet PO ×2 (05:57→13:22)
[2022-09-16 06:04] LABS: Absolute Lymphocyte Count 2.09 X10^3/uL (0.83-4.51); Absolute Neutrophil Count 5.9 X10^3/uL (2.0-7.7); Basophil# 0.05 X10^3/uL; Basophil% 0.5 % (0-1); Eosinophil# 0.31 X10^3/uL; Eosinophils% 3.4 % (0-5); Hematocrit 47.9 % (40-54); Hemoglobin 16.2 g/dL (13.0-16.5); Lymphocyte # 2.09 X10^3/ul (0.83-4.51); Lymphocyte % 22.6 % (19-41); Mean Corp Hgb Conc 33.8 g/dL (32-36); Mean Corpuscular Hgb 29.9 pg (27.0-32.0); Mean Corpuscular Volume 88.5 fL (80-94); Mean Platelet Vol. 10.1 fl (6.2-12.0); Monocyte% 9.8 % (0-10); NRBC Flagged by Analyzer 0 % (0-5); Neutrophil # 5.85 X10^3/uL (2.7-7.7); Neutrophil % 63.4 % (47-70); Platelet Count 250 K/mm3 (150-450); RBC Distribution Width CV 13.2 % (11.6-14.6); RBC Distribution Width SD 42.5 fl (35.1-43.9); Red Blood Count 5.41 M/mm3 (4.6-6.2); White Blood Count 9.2 K/mm3 (4.4-11.0)
[2022-09-16 06:49] LABS: Anion Gap 6 (5-15); BUN 21 mg/dL (7-18); BUN/Creat Ratio 23.8 RATIO (10-20); Calcium,Total 9.1 mg/dL (8.5-10.1); Chloride 105 mmol/L (98-107); Creatinine, Serum 0.88 mg/dL (0.70-1.30); EST Glomerular Filtration Rate 91 mL/min (>60); Est Glom Filt Rate - Afr Amer 110 mL/min (>60); Estimated Creatinine Clearance 88.18 ml/min; Glucose 93 mg/dL (74-106); Potassium 4.2 mmol/L (3.5-5.1); Sodium Level 136 mmol/L (136-145)
[2022-09-16] MEDS: Aspirin 81 MG TAB.CHEW PO (08:00)
[2022-09-16] MEDS: Potassium Chloride Oral Tablet 20 MEQ PO (08:00)
--- NOTE | 2022-09-16 08:14 | PCM.PN.CARD ---
Subjective Subjective The patient looks better, states he feels better overall, states his breathing has improved, states that he walked 11 times around the PCU (equivalent of 1 mile) without oxygen without any obvious difficulties, and states he slept supine last night without oxygen without the concern of shortness of breath/orthopnea.. Objective Data Vital Signs: Vital Signs Temp Pulse Resp BP Pulse Ox O2 Del Method O2 Flow Rate 97.6 F L 68 18 101/88 H 94 Room Air 2 09/16/22 05:56 09/16/22 07:13 09/16/22 05:56 09/16/22 05:56 09/16/22 05:56 09/16/22 07:54 09/15/22 00:25 Oxygen Flow Rate (L/min) 2 Oxygen Delivery Method Room Air Weight: 230 lb 13.184 oz Body Mass Index (BMI) 33.9 Intake & Output: Intake and Output for Last 24 Hours 09/14/22 09/15/22 09/16/22 23:59 23:59 23:59 Intake Total 1624.69 / 1641.39 1531.84 / 1531.84 Output Total 2700 / 2700 Balance -1075.31 / -1058.61 1531.84 / 1531.84 Lab / Micro Data Result Diagrams: 09/16/22 05:52 09/16/22 05:52 Labs: Laboratory Results - last 24 hr 09/15/22 10:46: APTT 61.1 H 09/16/22 05:52: WBC 9.2, RBC 5.41, Hgb 16.2, Hct 47.9, MCV 88.5, MCH 29.9, MCHC 33.8, RDW Std Deviation 42.5, RDW Coeff of Chencho 13.2, Plt Count 250, MPV 10.1, Immature Gran % (Auto) 0.300, Neut % (Auto) 63.4, Lymph % (Auto) 22.6, Wallace % (Auto) 9.8, Eos % (Auto) 3.4, Baso % (Auto) 0.5, Absolute Neuts (auto) 5.9, Absolute Lymphs (auto) 2.09, Nucleated RBC % 0 09/16/22 05:52: Sodium 136, Potassium 4.2, Chloride 105, Carbon Dioxide 25.0, Anion Gap 6, BUN 21 H, Creatinine 0.88, Estim Creat Clear Calc 88.18, Est GFR (MDRD) Af Amer 110, Est GFR (MDRD) Non-Af 91, BUN/Creatinine Ratio 23.8 H, Glucose 93, Calcium 9.1 Cardiology Labs/Tests 09/15/22 10:46: APTT 61.1 H 09/16/22 05:52: WBC 9.2, RBC 5.41, Hgb 16.2, Hct 47.9, MCV 88.5, MCH 29.9, MCHC 33.8, Plt Count 250, MPV 10.1, Immature Gran % (Auto) 0.300, Neut % (Auto) 63.4, Lymph % (Auto) 22.6, Wallace % (Auto) 9.8, Eos % (Auto) 3.4, Baso % (Auto) 0.5, Absolute Neuts (auto) 5.9, Nucleated RBC % 0 09/16/22 05:52: Sodium 136, Potassium 4.2, Chloride 105, Carbon Dioxide 25.0, Anion Gap 6, BUN 21 H, Creatinine 0.88, Est GFR (MDRD) Af Amer 110, Est GFR (MDRD) Non-Af 91, BUN/Creatinine Ratio 23.8 H, Glucose 93, Calcium 9.1 Rhythm: Sinus rhythm Physical Exam Const alert, oriented x3 and no apparent distress Orientation / Consciousness: awake HEENT normocephalic, head/scalp atraumatic and hearing grossly normal bilaterally Eyes PERRL, EOMs intact bilaterally, conjunctivae normal and no scleral icterus Neck full ROM, supple and no JVD Carotids: normal carotid upstroke Resp normal respiratory effort and clear to auscultation bilaterally Cardio regular rate, regular rhythm, S1 normal heart sound and S2 normal heart sound GI normal to inspection, nondistended, normoactive bowel sounds Extremity no pedal edema Skin no rashes or lesions noted Psych mental status grossly normal Assessment & Plan Assessment/Plan (1) Atrial fibrillation: PLAN: The patient presents with atrial fibrillation. The etiology may be multifactorial. This could be related to a combination of age, potentially his recent COVID-19, and undiagnosed underlying cardiovascular disease process, as he has not been found to have obvious evidence of thromboembolic disease such as pulmonary emboli or other definitive issues to explain it thus far. He has undergone evaluation with KRYSTIN guided synchronized biphasic DC cardioversion. He did regain sinus rhythm. He will continue rate control therapy. He will continue with an oral amiodarone taper. He will continue with oral anticoagulant therapy. (2) CHF (congestive heart failure): PLAN: The patient has findings compatible with CHF. It appears at the present time, based upon his echocardiographic findings, that this is systolic mediated. He does appear to be symptomatically improved and improved on examination. He will continue with oral medication adjustment. (3) Non-ST elevation (NSTEMI) myocardial infarction: PLAN: He has undergone further evaluation with diagnostic cardiac catheterization. It appears that he has a type II event based upon his atrial fibrillation and CHF as he did not appear to have angiographically significant/obstructive coronary artery disease. He will continue medical management. (4) Cardiomyopathy: PLAN: His echocardiogram suggest findings compatible with an underlying cardiomyopathy. It is unclear whether this is a tachycardic induced event versus a nontachycardic induced event and/or whether it has any relationship with his previous report of COVID-19 exposure. His cardiac catheterization did not demonstrate angiographically significant/obstructive coronary disease to explain his cardiomyopathy. Over time his left ventricle need to be followed with a transthoracic echocardiogram to monitor his left ventricular systolic function. If his systolic function does not improve then he will need to be considered for future ICD placement. In the interim he will continue medical therapy such as beta-blockers, diuretics including spironolactone/Aldactone, afterload reducing agents such as Entresto, and potentially the future addition of an SGLT2 inhibitor. (5) Valvular heart disease: PLAN: He does have an element of valvular heart disease with MR and TR. This may be related to his underlying cardiomyopathy and subsequent valvular dysfunction. He will continue medical therapy and follow-up. (6) COVID-19: PLAN: The patient states he had been diagnosed with COVID-19. He states he remained home for his 5 days of quarantine. 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 He states he is greater than 10 days from his original event. He did undergo a repeat COVID-19 examination prior to his KRYSTIN. This was negative. Addt'l Comments Overall, the patient appears to have symptomatically and clinically improved during his hospital evaluation and stay. He will continue combined medical therapy. He will continue with future outpatient cardiovascular follow-up. The above was discussed and reviewed with the patient. This note was generated using a voice recognition system and there may be incorrect words, spelling or punctuation that were not noted when reviewing the office note prior to saving.
[2022-09-16] MEDS: APIXABAN 5 MG TABLET PO (10:18)
[2022-09-16] MEDS: SACUBITRIL/VALSARTAN 24/26 MG TABLET 1 EACH PO (10:18)
[2022-09-16] MEDS: Spironolactone 25 MG Tablet PO (10:19)
[2022-09-16] MEDS: Furosemide 20 MG Tablet PO (10:29)
[2022-09-16] MEDS: Carvedilol 12.5 MG Tablet PO (13:22)
--- NOTE | 2022-09-16 14:19 | PCM.DC.SUM ---
Providers Date of Admission: 09/11/22 Primary Care Physician: Dr. Phil House MD Reason For Visit: AFIB/RVR, ELEVATED TROPONIN Diagnosis Discharge Diagnosis (1) Atrial fibrillation: Status: Acute Code(s): I48.91 - Unspecified atrial fibrillation (2) CHF (congestive heart failure): Status: Acute Code(s): I50.9 - Heart failure, unspecified (3) Non-ST elevation (NSTEMI) myocardial infarction: Status: Acute Code(s): I21.4 - Non-ST elevation (NSTEMI) myocardial infarction (4) Cardiomyopathy: Status: Acute Code(s): I42.9 - Cardiomyopathy, unspecified (5) Valvular heart disease: Status: Acute Code(s): I38 - Endocarditis, valve unspecified (6) COVID-19: Status: Acute Code(s): U07.1 - COVID-19 Plan 1. New onset A. fib with RVR #2 heart failure with reduced ejection fraction #3 type II NSTEMI Medications at Discharge Home Medications acetaminophen 500 mg tablet (Tylenol Extra Strength) 1,000 mg PO DAILY PRN PAIN AND FEVER 04/01/21 cyanocobalamin (vitamin B-12) 1,000 mcg tablet 1,000 mcg PO DAILY SUPPLEMENT 04/01/21 glucosamine sulf dipot chlr,msm,chond 550 mg-C 30 mg-haylee 1 mg capsule (Glucosamine Chondroitin) 1 cap PO DAILY SUPPLEMENT 04/01/21 turmeric root extract 500 mg capsule 500 mg PO DAILY SUPPLEMENT 04/01/21 tamsulosin 0.4 mg capsule 0.4 mg PO DAILY@1730 #30 caps 04/02/21 ascorbic acid (vitamin C) 1,000 mg tablet (Vitamin C) 1,000 mg PO DAILY 09/11/22 aspirin 81 mg tablet 81 mg PO DAILY 09/11/22 amiodarone 200 mg tablet 200 mg PO TID #100 tabs 09/16/22 apixaban 5 mg tablet (Eliquis) 5 mg PO BID 30 days #60 tabs 09/16/22 atorvastatin 20 mg tablet 20 mg PO QHS 30 days #30 tabs 09/16/22 carvedilol 12.5 mg tablet 12.5 mg PO BID 30 days #60 tabs 09/16/22 furosemide 20 mg tablet 20 mg PO DAILY 30 days #30 tabs 09/16/22 potassium chloride 10 mEq tablet,extended release(part/cryst) 10 meq PO DAILYCM 30 days #30 tabs 09/16/22 sacubitril 24 mg-valsartan 26 mg tablet (Entresto) 1 ea PO BID 30 days #60 tabs 09/16/22 spironolactone 25 mg tablet 25 mg PO DAILY 30 days #30 tabs 09/16/22 Hospital Course Procedures Cardiac catheterization, Cardioversion, Transesophageal Echo, Transthoracic echo and - Summary of Care Provided Minutes Spent on Discharge: 35 Hospital Course: Mr. Fiore is a 67-year-old male with no significant past medical history who presented to [facility] 10/12/2022 after being sent from his primary care physician's office for shortness of breath. He was diagnosed with COVID 2 and half weeks prior to admission and was having some shortness of breath then but it persisted. He was tachycardic at his PCPs office and an EKG demonstrated A. fib with RVR which was a new diagnosis. He was sent to [facility] and started on a Cardizem drip and heparin drip. He had a cardiac catheterization which did not show any obstructive disease and echo showed EF of 20% with severe global left ventricular systolic dysfunction. He remained tachycardic despite multiple medical interventions, therefore KRYSTIN cardioversion was performed on 09/14. He tolerated this well and was placed on amiodarone and given digoxin. He was transitioned to oral medications which he tolerated well. Blood pressure was borderline, but this was throughout admission and he was asymptomatic and even walked over a mile in the hallway without difficulty. In regards to shortness of breath, he was placed on diuretics during his admission and his breathing improved significantly, also feels he is lost a significant amount of weight and fluid. He was discharged home in stable condition to follow-up with cardiology. Discharge instructions provided for patient as below: ?You have been placed on a blood thinner, Eliquis. It would be important to take this twice daily. You will be provided with information for medication assistance. If there or any problems or concerns you can discuss alternatives with your archeology faculty member or your primary care physician You have also been started on Entresto and will be provided information about financial options for this as well. ? You have been started on a beta-geovanny, carvedilol, as well as Lasix and spironolactone. Due to the Lasix you have also been started on potassium supplementation that you can start tomorrow. ? You have also been started on atorvastatin 20 mg ? Continue to take aspirin 81 mg daily ? You have been started on an amiodarone taper you will take 200 mg 3 times a day through 09/28/2022. Followed by amiodarone 200 mg twice daily from 09/29/2022 through 10/12/2022. Thereafter you will be on 200 mg daily starting 10/13/2022 ? All of your new medications were sent to the [facility] retail pharmacy ?It is important to follow-up with Dr. Chavarria on discharge. His office will contact to with a follow-up appointment. If you do not hear from the office within 24 to 48 hours please contact them to inquire further about appointment/scheduling. ? It is recommended to get a BMP (lab work) in 5 to 7 days through your primary care physician's office to monitor your electrolytes. Would strongly advise calling them the day of discharge to schedule a hospital follow-up appointment within 1 week as well as to obtain blood work order -Please call your primary care provider's office upon discharge to schedule a hospital follow up within 1 week. -For any concerning signs or symptoms please call 911 or proceed to the nearest emergency department Physical Exam Const alert and no apparent distress Constitutional Narrative: Oriented HEENT normocephalic and head/scalp atraumatic Eyes Eyes Narrative: EOM grossly intact, anicteric Neck supple Resp normal respiratory effort and clear to auscultation bilaterally Cardio Cardio Narrative: Regular rate, rate rhythm GI soft to palpation, non-tender and non-distended Extremity Extremity Narrative: No edema appreciated Neuro moves all extremities Neuro Narrative: No overt focal deficits appreciated Psych Psych Narrative: Cooperative Weight / BMI Weight Weight: 104.7 kg Body Mass Index (BMI) 33.9 ABG / Lab / Microbiology Data Result Diagrams: 09/16/22 05:52 09/16/22 05:52 Laboratory: Laboratory Results - last 24 hr 09/16/22 05:52: WBC 9.2, RBC 5.41, Hgb 16.2, Hct 47.9, MCV 88.5, MCH 29.9, MCHC 33.8, RDW Std Deviation 42.5, RDW Coeff of Chencho 13.2, Plt Count 250, MPV 10.1, Immature Gran % (Auto) 0.300, Neut % (Auto) 63.4, Lymph % (Auto) 22.6, [place] % (Auto) 9.8, Eos % (Auto) 3.4, Baso % (Auto) 0.5, Absolute Neuts (auto) 5.9, Absolute Lymphs (auto) 2.09, Nucleated RBC % 0 09/16/22 05:52: Sodium 136, Potassium 4.2, Chloride 105, Carbon Dioxide 25.0, Anion Gap 6, BUN 21 H, Creatinine 0.88, Estim Creat Clear Calc 88.18, Est GFR (MDRD) Af Amer 110, Est GFR (MDRD) Non-Af 91, BUN/Creatinine Ratio 23.8 H, Glucose 93, Calcium 9.1 Microbiology: Microbiology 09/14/22 08:44 Nasal Secretion SARS-CoV-2 Antigen (Rapid) - Final D/C Instructions Discharge Diet: - (5 L fluid restriction) Meaningful Use Info Meaningful Use Diagnoses (Choose all that apply): CHF CHF CASTILLO/ARB ordered at discharge?: Yes Documented LVEF (%): 20 Discharge Plan Admission Admit Date/Time: 09/11/22 16:27 Primary Reason for Your Visit: Heart attack Attending Provider: Sirisha Avila Primary Care Provider: Phil House Consulting Providers: Chata Wheat ; Mushtaq Allen Instructions Patient Instructions: Cardiomyopathy Dc Additional Instructions / Restrictions: *Please take this with you to your next doctors appointment* ?You have been placed on a blood thinner, Eliquis. It would be important to take this twice daily. You will be provided with information for medication assistance. If there or any problems or concerns you can discuss alternatives with your archeology faculty member or your primary care physician You have also been started on Entresto and will be provided information about financial options for this as well. ? You have been started on a beta-geovanny, carvedilol, as well as Lasix and spironolactone. Due to the Lasix you have also been started on potassium supplementation that you can start tomorrow. ? You have also been started on atorvastatin 20 mg ? Continue to take aspirin 81 mg daily ? You have been started on an amiodarone taper you will take 200 mg 3 times a day through 09/28/2022. Followed by amiodarone 200 mg twice daily from 09/29/2022 through 10/12/2022. Thereafter you will be on 200 mg daily starting 10/13/2022 ? All of your new medications were sent to the [facility] retail pharmacy ?It is important to follow-up with Dr. Chavarria on discharge. His office will contact to with a follow-up appointment. If you do not hear from the office within 24 to 48 hours please contact them to inquire further about appointment/scheduling. ? It is recommended to get a BMP (lab work) in 5 to 7 days through your primary care physician's office to monitor your electrolytes. Would strongly advise calling them the day of discharge to schedule a hospital follow-up appointment within 1 week as well as to obtain blood work order -Please call your primary care provider's office upon discharge to schedule a hospital follow up within 1 week. -For any concerning signs or symptoms please call 911 or proceed to the nearest emergency department Discharge Orders/Prescriptions Prescriptions: New atorvastatin 20 mg Tablet 20 mg PO QHS 30 Days Qty: 30 0RF carvedilol 12.5 mg Tablet 12.5 mg PO BID 30 Days Qty: 60 0RF amiodarone 200 mg Tablet 200 mg PO TID Qty: 100 0RF Rx Instructions: take 200 mg 3 times a day through 09/28/2022. Followed by amiodarone 200 mg twice daily from 09/29/2022 through 10/12/2022. Thereafter you will be on 200 mg daily starting 09/12/2022 spironolactone 25 mg Tablet 25 mg PO DAILY 30 Days Qty: 30 0RF furosemide 20 mg Tablet 20 mg PO DAILY 30 Days Qty: 30 0RF potassium chloride 10 mEq Tablet,Er Particles/Crystals 10 meq PO DAILYCM 30 Days Qty: 30 0RF Eliquis 5 mg Tablet 5 mg PO BID 30 Days Qty: 60 0RF Entresto 24-26 mg Tablet 1 ea PO BID 30 Days Qty: 60 0RF Continued cyanocobalamin (vitamin B-12) 1,000 mcg Tablet 1,000 mcg PO DAILY acetaminophen [Tylenol Extra Strength] 500 mg Tablet 1,000 mg PO DAILY PRN (Reason: PAIN AND FEVER) turmeric root extract 500 mg Capsule 500 mg PO DAILY Glucosamine Chondroitin 550-30-1 mg Capsule 1 cap PO DAILY tamsulosin 0.4 mg Capsule 0.4 mg PO DAILY@1730 Qty: 30 1RF ascorbic acid (vitamin C) [Vitamin C] 1,000 mg Tablet 1,000 mg PO DAILY aspirin 81 mg Tablet 81 mg PO DAILY Discontinued ibuprofen 200 mg Tablet 400 mg PO DAILY PRN (Reason: PAIN AND FEVER) Referrals / Follow Up: Phil House MD [Primary Care Provider] - Within 1 Week Disposition Disposition (needs filled in before D/C Order can be placed): Home, Self Care Charges/Coding Visit Charges Inpatient E&M: 66557 Disch Hosp
--- NOTE | 2022-09-16 14:25 | CASEMGMT ---
Addendum entered by Nona Conklin 09/16/22 14:26: Phoebe in [facility] retail pharmacy aware to apply coupon cards. Pt ready for d/c. Mendez WATTS CM Original Note: Pt/ are good with utilizing Entresto and Eliquis 30 day coupon cards for the first month free and then figuring out assistance, etc with Dr. Chavarria with f/u appt. Pt/ voice no further questions/concerns/needs. Mendez WATTS CM
== END 2022-09-16 15:35 | disposition home or self-care (01) | DRG 280 ==
PROVIDERS: Family Medicine; Internal Medicine; Internal Medicine Cardiovascular Disease; Admitting Provider Internal Medicine; PCP Family Medicine; Visit Provider Internal Medicine
DX: I48.0 Paroxysmal atrial fibrillation (principal); I21.A1 Myocardial infarction type 2; I50.21 Acute systolic (congestive) heart failure; I42.9 Cardiomyopathy, unspecified; I25.10 Atherosclerotic heart disease of native coronary artery without angina pectoris; I08.1 Rheumatic disorders of both mitral and tricuspid valves; R09.02 Hypoxemia; I49.3 Ventricular premature depolarization; N40.0 Benign prostatic hyperplasia without lower urinary tract symptoms; Z20.822 Contact with and (suspected) exposure to COVID-19; Z79.01 Long term (current) use of anticoagulants; Z79.82 Long term (current) use of aspirin; Z79.899 Other long term (current) drug therapy; Z86.16 Personal history of COVID-19
CPT/HCPCS: 36415; 71046; 71275; 80048; 80053; 84484; 85025; 85610; 85730; 87426; 92960; 93005; 93306; 93312; 93320; 93325; 93454; 99152; 99153; J7030; J7040; Q9967; A4216; C1769; C1894; J1940

== ENCOUNTER → 2022-09-23 | Outpatient (CLI) | payer SELFPAY ==
[2022-09-23 10:00] LABS: Anion Gap 8 (5-15); BUN 23 mg/dL (7-18); BUN/Creat Ratio 20.7 RATIO (10-20); Calcium,Total 9.1 mg/dL (8.5-10.1); Chloride 102 mmol/L (98-107); Creatinine, Serum 1.11 mg/dL (0.70-1.30); EST Glomerular Filtration Rate 70 mL/min (>60); Est Glom Filt Rate - Afr Amer 85 mL/min (>60); Glucose 131 mg/dL (74-106); Potassium 4.7 mmol/L (3.5-5.1); Sodium Level 134 mmol/L (136-145)
== END | disposition home or self-care (01) ==
PROVIDERS: PCP Podiatrist; Visit Provider Internal Medicine Cardiovascular Disease
DX: I21.4 Non-ST elevation (NSTEMI) myocardial infarction (principal); I50.9 Heart failure, unspecified; I48.91 Unspecified atrial fibrillation
CPT/HCPCS: 36415; 80048

== ENCOUNTER → 2022-10-06 | Outpatient (CLI) | payer SELFPAY ==
[2022-10-06 10:53] LABS: Anion Gap 8 (5-15); BUN 28 mg/dL (7-18); BUN/Creat Ratio 28.2 RATIO (10-20); Calcium,Total 8.8 mg/dL (8.5-10.1); Chloride 104 mmol/L (98-107); Creatinine, Serum 0.99 mg/dL (0.70-1.30); EST Glomerular Filtration Rate 80 mL/min (>60); Est Glom Filt Rate - Afr Amer 96 mL/min (>60); Glucose 110 mg/dL (74-106); PSA,Total- Diagnostic 3.75 ng/mL (0.0-4.0); Potassium 4.3 mmol/L (3.5-5.1); Sodium Level 136 mmol/L (136-145)
== END | disposition home or self-care (01) ==
PROVIDERS: PCP Family Medicine; Referring Provider Urology; Visit Provider Urology
DX: I50.9 Heart failure, unspecified (principal); R97.20 Elevated prostate specific antigen [PSA]
CPT/HCPCS: 36415; 80048; 84153

== ENCOUNTER → 2022-10-27 | Outpatient (CLI) | payer SELFPAY ==
--- NOTE | 2022-10-27 09:03 | ECHOL_ITS ---
Reason For Study: CHF Procedure This was a limited 2D transthoracic echocardiogram. Limited views were obtained. Exam performed in department. Left Ventricle Mildly dilated left ventricle. Mild to moderate global left ventricular systolic dysfunction. The estimated ejection fraction is 40 %. Septal bounce. Unable to assess diastolic dysfunction. Right Ventricle Normal RV size. Normal systolic function. Atria Normal left atrium. Normal right atrium. Mitral Valve There is no mitral annular calcification. Mild diffuse mitral valve thickening. Tricuspid Valve Normal tricuspid valve. Aortic Valve Trisinus/trileaflet aortic valve. Mild focal aortic valve calcification. Pulmonic Valve The pulmonic valve is not well visualized. Great Vessels Mildly dilated aortic root. Pericardium/Pleural No pericardial effusion. MMode/2D Measurements & Calculations LVIDd: 5.4 cm IVSd: 1.1 cm Ao root diam: 4.1 cm LVIDs: 4.4 cm LVPWd: 1.1 cm FS: 19.9 % LAV(MOD-sp4): 44.0 ml LVAd ap4: 35.9 cm2 LVAd ap2: 29.9 cm2 LVLd ap4: 9.1 cm LVLd ap2: 8.4 cm EDV(MOD-sp4): 118.6 ml EDV(MOD-sp2): 88.6 ml EDV(sp4-el): 120.2 ml EDV(sp2-el): 90.2 ml LVAs ap4: 25.7 cm2 LVAs ap2: 22.3 cm2 LVLs ap4: 8.5 cm LVLs ap2: 7.8 cm ESV(MOD-sp4): 67.5 ml ESV(MOD-sp2): 53.8 ml ESV(sp4-el): 66.3 ml ESV(sp2-el): 53.7 ml EF(MOD-sp4): 43.1 % EF(MOD-sp2): 39.3 % EF(sp4-el): 44.9 % SV(MOD-sp4): 51.1 ml SV(MOD-sp2): 34.8 ml SV(sp4-el): 54.0 ml LA dimension(2D): 3.5 cm LA A4 area: 18.1 cm2 ECHO/Echo, Limited Study Interpretation Summary Limited views were obtained. Mildly dilated left ventricle. Mild to moderate global left ventricular systolic dysfunction. The estimated ejection fraction is 40 %. Septal bounce. Mild diffuse mitral valve thickening. Mild focal aortic valve calcification. Mildly dilated aortic root. Unable to assess diastolic dysfunction. Ordering Physician: Jose Elias Chavarria Referring Physician: Jose Elias Chavarria Performed By: Barbi Bourgeois RCS
== END | disposition home or self-care (01) ==
LOC: CVS 09:03
PROVIDERS: PCP Family Medicine; Referring Provider Internal Medicine Cardiovascular Disease; Visit Provider Internal Medicine Cardiovascular Disease
DX: I50.20 Unspecified systolic (congestive) heart failure (principal); I42.9 Cardiomyopathy, unspecified; I48.91 Unspecified atrial fibrillation; I25.10 Atherosclerotic heart disease of native coronary artery without angina pectoris
CPT/HCPCS: 93308

== ENCOUNTER → 2023-12-02 | Outpatient (CLI) | payer SELFPAY ==
--- NOTE | 2023-12-02 12:59 | ECHOD_ITS ---
Version 2 Reason For Study: Caradiomyopathy Procedure This was a 2D Doppler, Color Flow transthoracic echocardiogram. Exam performed in department. Left Ventricle Normal LV size. Left ventricular systolic function is normal. The estimated ejection fraction is 55 %. Stage 1 diastolic dysfunction. No regional wall motion abnormalities noted. Right Ventricle Normal RV size. Normal systolic function. Atria Normal left atrium. Normal right atrium. Mitral Valve Normal mitral valve. Tricuspid Valve Normal tricuspid valve. Mild tricuspid valve insufficiency. Pulmonary artery systolic pressure is 25 mmHg. Aortic Valve Normal aortic valve. Trisinus/trileaflet aortic valve. Pulmonic Valve Normal pulmonic valve. Mild (1+) pulmonic valve insufficiency. Great Vessels Mildly dilated aortic root. The pulmonary artery is normal size. Normal inferior vena cava. Pericardium/Pleural No pericardial effusion. MMode/2D Measurements & Calculations LVIDd: 5.0 cm IVSd: 1.0 cm Ao root diam: 4.3 cm LVIDs: 3.4 cm LVPWd: 0.99 cm RVDd: 3.9 cm FS: 32.0 % LAV(MOD-bp): 36.2 ml LVAd ap4: 34.5 cm2 LVAd ap2: 35.2 cm2 LAV(MOD-bp) Indexed: 15.7 ml/m2 LVLd ap4: 9.1 cm LVLd ap2: 9.4 cm LAV(MOD-sp2): 38.2 ml EDV(MOD-sp4): 111.2 ml EDV(MOD-sp2): 111.6 ml LAV(MOD-sp4): 31.6 ml EDV(sp4-el): 111.6 ml EDV(sp2-el): 112.3 ml LVAs ap4: 20.5 cm2 LVAs ap2: 23.1 cm2 LVLs ap4: 7.3 cm LVLs ap2: 8.3 cm ESV(MOD-sp4): 48.4 ml ESV(MOD-sp2): 54.4 ml ESV(sp4-el): 48.4 ml ESV(sp2-el): 54.6 ml EF(MOD-sp4): 56.5 % EF(MOD-sp2): 51.3 % EF(sp4-el): 56.6 % SV(MOD-sp4): 62.8 ml SV(MOD-sp2): 57.3 ml SV(sp4-el): 63.2 ml LA dimension(2D): 3.0 cm LA A4 area: 13.5 cm2 RA A4 area: 12.4 cm2 TAPSE: 2.1 cm Time Measurements MV dec time: 0.22 sec Doppler Measurements & Calculations MV E max norbert: 53.0 cm/sec Lat Peak E' Norbert: 6.2 cm/sec Med Peak E' Norbert: 6.5 cm/sec MV A max norbert: 83.0 cm/sec E/E' lat: 8.6 E/E' med: 8.2 MV E/A: 0.64 MV dec slope: 238.7 cm/sec2 Ao V2 max: 142.7 cm/sec LV V1 max: 114.3 cm/sec Ao max P.1 mmHg LV V1 max P.2 mmHg Ao V2 mean: 103.3 cm/sec LV V1 mean P.0 mmHg Ao mean P.8 mmHg LV V1 mean: 79.6 cm/sec Ao V2 VTI: 30.3 cm LV V1 VTI: 22.7 cm AV (velocity ratio): 0.75 PA V2 max: 100.9 cm/sec TR max norbert: 231.9 cm/sec TR max P.5 mmHg ECHO/Echo Complete Interpretation Summary Normal LV size. Left ventricular systolic function is normal. The estimated ejection fraction is 55 %. Stage 1 diastolic dysfunction. Mildly dilated aortic root. Compared to previous study, the left ventricular systolic function has improved .. Ordering Physician: Alan Phillips Referring Physician: Daniele Garcia Performed By: Zayra Porter RDCS
== END | disposition home or self-care (01) ==
LOC: CVS 12:57
PROVIDERS: PCP Family Medicine; Referring Provider Nurse Practitioner Family; Visit Provider Nurse Practitioner Family
DX: I42.9 Cardiomyopathy, unspecified (principal); I48.91 Unspecified atrial fibrillation; I25.10 Atherosclerotic heart disease of native coronary artery without angina pectoris
CPT/HCPCS: 93306

== ENCOUNTER → 2024-06-11 | Outpatient (CLI) | payer SELFPAY ==
[2024-06-11 11:06] LABS: PSA,Total - Annual Screen 3.96 ng/mL (0.00-4.00)
== END | disposition home or self-care (01) ==
PROVIDERS: PCP Family Medicine; Referring Provider Urology; Visit Provider Urology
DX: Z12.5 Encounter for screening for malignant neoplasm of prostate (principal)
CPT/HCPCS: 36415; 84153; G0103

== ENCOUNTER → 2025-06-17 | Outpatient (CLI) | payer SELFPAY ==
[2025-06-17 10:19] LABS: PSA,Total - Annual Screen 4.45 ng/mL (0.02-4.00)
== END | disposition home or self-care (01) ==
PROVIDERS: PCP Family Medicine; Referring Provider Nurse Practitioner; Visit Provider Nurse Practitioner
DX: Z12.5 Encounter for screening for malignant neoplasm of prostate (principal)
CPT/HCPCS: 36415; 84153; G0103

== ENCOUNTER 2025-07-08 07:25 | Day surgery (SDC) | payer SELFPAY ==
--- NOTE | 2025-07-02 08:27 | EKG12_ITS ---
Test Reason : PREOP Blood Pressure : */* mmHG Vent. Rate : 77 BPM Atrial Rate : 77 BPM P-R Int : 194 ms QRS Dur : 106 ms QT Int : 380 ms P-R-T Axes : 21 18 56 degrees QTcB Int : 430 ms Normal sinus rhythm Normal ECG When compared with ECG of 14-Sep-2022 14:12, QT has shortened Confirmed by DEVANTE HERNANDEZ, RAMIN ([id number]), website/blog editor KASSANDRA CHAUHAN ([id number]) on 07/03/2025 9:32:05 AM Referred By: Franc Brush Confirmed By: RAMIN LOW MD
[2025-07-02 08:41] LABS: Hematocrit 44.4 % (40-54); Hemoglobin 15.1 g/dL (13.0-16.5); Mean Corp Hgb Conc 34.0 g/dL (32-36); Mean Corpuscular Volume 87.7 fL (80-94); Mean Platelet Vol. 9.8 fl (6.2-12.0); Platelet Count 194 K/mm3 (150-450); RBC Distribution Width CV 13.2 % (11.6-14.6); RBC Distribution Width SD 42.3 fl (35.1-43.9); Red Blood Count 5.06 M/mm3 (4.6-6.2); White Blood Count 6.4 K/mm3 (4.4-11.0)
[2025-07-02 09:33] LABS: Anion Gap 13 (5-15); BUN 20 mg/dL (4-19); BUN/Creat Ratio 26.0 RATIO (10-20); Calcium,Total 9.3 mg/dL (7.6-11.0); Carbon Dioxide 22.7 mmol/L (21.0-32.0); Chloride 102 mmol/L (98-108); Glucose 111 mg/dL (70-99); Potassium 4.4 mmol/L (3.3-5.1)
--- NOTE | 2025-07-02 12:59 | PAT.ANE_ITS ---
Pre-Assessment Diagnosis/Proposed Procedure Planned Operative Procedure(s): (R) Lap Robotic Inguinal Hernia w/mesh Anesthesia History Anesthesia History - regulatory coordinator: Anesthesia History - regulatory coordinator Hx Hospitalization No 07/01/25 14:20 Any Problems With Anesthesia No 07/01/25 14:20 Cholinesterase deficiency No 07/01/25 14:20 You/Your Family Experience No 07/01/25 14:20 fever (hyperthermia) with Relationship Recent Exposure to Contagious Disease Does patient have nerve No 07/01/25 14:20 stimulator Patient instructed to have device shut off --Does patient have Pacemaker or ICD? When Was Last Pacemaker Check QUESTION #4 FULL TEXT: You/Your Family Experience fever (hyperthermia) with Anesthesia Last Oral Intake Last Oral intake: Last Oral Intake NPO since Meds taken in AM with sips of water? Meds patient instructed to take am of surgery PONV PONV - regulatory coordinator: PONV - regulatory coordinator Female No 07/01/25 14:20 HX of Motion Sickness No 07/01/25 14:20 HX of N/V After Surgery No 07/01/25 14:20 Non-Smoker Yes 07/01/25 14:20 Duration of Surgery greater Yes 07/01/25 14:20 than 60 minutes Number of Risk Factors 2 07/01/25 14:20 PONV Score Moderate Risk 07/01/25 14:20 Height & Weight Height & Weight: Anesthesia: Height & Weight Height 6 ft 06/24/25 08:24 Respiratory Assessment Respiratory Assessment - regulatory coordinator: Respiratory Tract Infection Hx - regulatory coordinator Hx Respiratory Tract Infection No 07/01/25 14:20 STOP Sleep Apnea STOP Sleep Apnea - regulatory coordinator: STOP Sleep Apnea - regulatory coordinator Hx Hypertension Yes: CONTROLLED WITH MED 07/01/25 14:20 Hx Sleep Apnea No 07/01/25 14:20 CPAP BIPAP Do you snore loudly (louder No 07/01/25 14:20 than talking or can be heard Do you often feel tired/ No 07/01/25 14:20 fatigued/ sleepy during daytime? Has anyone observed you stop No 07/01/25 14:20 breathing during sleep? STOP Results Negative 07/01/25 14:20 QUESTION #5 FULL TEXT : Do you snore loudly (louder than talking or can be heard through closed doors)? 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 Specify any problems Hx of Preganancy in last 3 N/A 07/01/25 14:20 Months Nurse Filling Out Transfusion NBU[facility]ER 07/01/25 14:20 & Questions: Date: 07/01/25 07/01/25 14:20 Time: 14:21 07/01/25 14:20 Patient unable to answer at this time (ie. confused, unrespo /Reproduction History /Reproductive History - regulatory coordinator: /Reproductive Hx- regulatory coordinator Hx Now No 07/01/25 14:20 Gestational Age (in weeks): EDC: Hx Hx Para Hx Section SAB No 07/01/25 14:20 [facility] Medical History (Updated 07/01/25 @ 14:26 by Pebbles Lim) Wears glasses BPH (benign prostatic hyperplasia) Prostate disease Restless legs Non-smoker History of echocardiogram Cardiology follow-up encounter History of atrial fibrillation History of cardioversion (~09/14/22) Atherosclerotic heart disease of [place] coronary artery without angina pectoris History of left heart catheterization (LHC) (~09/13/22) Valvular heart disease COVID-19 Non-ST elevation (NSTEMI) myocardial infarction Paroxysmal atrial fibrillation with RVR Sepsis Hypoxia Arthritis Home Medications ?Medication ?Instructions ?Recorded ?Last Taken ?Type acetaminophen 500 mg tablet 1,000 mg PO DAILY PRN PAIN AND 04/01/21 04/01/21 History (Tylenol Extra Strength) FEVER cyanocobalamin (vitamin B-12) 1,000 mcg PO DAILY SUPPL EMENT 04/01/21 09/11/22 History 1,000 mcg tablet glucosamine sulf dipot 1 cap PO DAILY SUPPLEMENT 09/11/22 History chlr,msm,chond 550 mg-C 30 mg-haylee 1 mg capsule (Glucosamine Chondroitin) tamsulosin 0.4 mg capsule 0.4 mg PO DAILY@1730 #30 cap s 04/02/21 09/10/22 Rx ascorbic acid (vitamin C) 1,000 mg 1,000 mg PO DAILY v itamin 09/11/22 09/11/22 History tablet (Vitamin C) calcium carbonate 1 tab PO DAILY 05/07/24 Unkn own History apixaban 5 mg tablet (Eliquis) 5 mg PO BID #180 tabs 1 11/27/23 Unknown Rx carvedilol 12.5 mg tablet 12.5 mg PO BID #180 tabs Unknown Rx lisinopril 10 mg tablet 10 mg PO DAILY #90 tabs 10/15 Unknown Rx cholecalciferol (vitamin D3) 10 10 mcg PO QDAY 5 Unknown History mcg (400 unit) capsule Allergy/AdvReac Type Severity Reaction Status Date / Time No Known Allergies Allergy Verified 07/01/25 14:16 Family History Mother Atrial fibrillation Brother Myocardial infarction Surgical History History of carpal tunnel release of both wrists Social History household members: spouse housing: house Smoking Status: Never smoker alcohol intake: never substance use type: does not use caffeine: Yes Type: coffee Number of servings: 1 Audit: Pertinent Findings Pertinent Findings EKG Perinent findings: Interpretation sinus rhythm first-degree AV block, low voltage in precordial leads, nonspecific QRS widening, poor R wave progression. Overall EKG looks normal and questionable for AV block. Echo (EF%) pertinent findings: Echocardiogram 12/02/2023 Interpretation Summary Normal LV size. Left ventricular systolic function is normal. The estimated ejection fraction is 55 %. Stage 1 diastolic dysfunction. Mildly dilated aortic root. Compared to previous study, the left ventricular systolic function has improved.. Consult pertinent findings: Cardiology visit 03/25/2025 His ejection fraction is improved. He has previously asked about discontinuing medications. The importance of guideline directed medical therapy reviewed with him and as ejection fraction is improved compared to previous. Given his lower blood pressure readings and anticoagulation, it was felt prudent to discontinue spironolactone to avoid potential for injury. Recommendation Anesthesia Recommendation Anesthesia recommendation: OPTIMIZED for anesthesia
[2025-07-08] VITALS (11 sets, daily range): BP systolic 93–133; BP diastolic 63–93; PULSE 65–72; RESP 16; TEMP 36.1–36.4; O2SAT 93–99; BMI 32.0
[2025-07-08] MEDS: Lactated Ringers 1,000 ML 15 ML IV (07:58)
--- NOTE | 2025-07-08 08:45 | PCM.PRE.AN2 ---
ASA Classification* ASA Classification ASA Classification: 3 Assessment & Plan Anesthesia* Anesthesia Assessment Anesthesia Assessment: Discussed sedation and/or anesthesia options, risks, benefits, and alternatives with patient/parents/legal guardian/POA. Questions invited. The patient/parents/legal guardian/POA seems to understand and agrees to proceed with anesthesia plan. Reviewed the physical assessment, medical history, allergy history and patient home medications list prior to surgery/procedure/anesthetic and documented any changes. Performed airway and anesthesia risk assessments. Anesthesia Type Anesthesia Type: General History Source History Obtained from:: Patient and Chart Anesthesia Focused Assessment* Temperature: 97.5 F Pulse Rate: 65 Blood Pressure: 116/86 Respiratory Rate: 16 Pulse Ox: 99 Oxygen Delivery Method: Room Air Airway Assessment Mouth opens: 2 cm Mallampati Score: III Teeth Condition: Intact Neck Range of motion (ROM): Full ROM Labs Anesthesia Preop lab: CBC WBC 6.4 K/mm3 (4.4-11.0) 07/02/25 08:18 07/02/25 RBC 5.06 M/mm3 (4.6-6.2) 07/02/25 08:18 07/02/25 Hgb 15.1 g/dL (13.0-16.5) 07/02/25 08:18 07/02/25 Hct 44.4 % (40-54) 07/02/25 08:18 07/02/25 Plt Count 194 K/mm3 (150-450) 07/02/25 08:18 07/02/25 CHEMISTRY Potassium 4.4 mmol/L (3.3-5.1) 07/02/25 08:18 07/02/25 Sodium 138 mmol/L (133-145) 07/02/25 08:18 07/02/25 Magnesium 2.0 mg/dL (1.6-2.6) 04/02/21 04:20 04/02/21 Phosphorus 2.2 mg/dL (2.5-4.9) L 04/02/21 04:20 04/02/21 BUN 20 mg/dL (4-19) H 07/02/25 08:18 07/02/25 Creatinine 0.76 mg/dL (0.70-1.20) 07/02/25 08:18 07/02/25 Glucose 111 mg/dL (70-99) H 07/02/25 08:18 07/02/25 COAG PT 14.7 SECONDS (11.7-14.9) 09/11/22 16:50 09/11/22 Pre-Assessment Diagnosis/Proposed Procedure Planned Operative Procedure(s): (R) Lap Robotic Inguinal Hernia w/mesh Anesthesia History Anesthesia History - [employer]: 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 When Was Last Pacemaker Check QUESTION #4 FULL TEXT: You/Your Family Experience fever (hyperthermia) with Anesthesia Last Oral Intake Last Oral intake: Last Oral Intake NPO since 21:00 07/08/25 07:51 Meds taken in AM with sips of No 07/08/25 07:51 water? 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[employer] Female No 07/01/25 14:20 HX of Motion Sickness No 07/01/25 14:20 HX of N/V After Surgery No 07/01/25 14:20 Non-Smoker Yes 07/01/25 14:20 Duration of Surgery greater Yes 07/01/25 14:20 than 60 minutes Number of Risk Factors 2 07/01/25 14:20 PONV Score Moderate Risk 07/01/25 14:20 Height & Weight Height & Weight: Anesthesia: Height & Weight Height 6 ft 07/08/25 07:51 Weight: 107 kg 07/08/25 07:51 Body Mass Index (BMI) 32.0 07/08/25 07:51 Respiratory Assessment Respiratory Assessment - [employer]: Respiratory Tract Infection Hx - [employer] Hx Respiratory Tract Infection No 07/01/25 14:20 STOP Sleep Apnea STOP Sleep Apnea - [employer]: STOP Sleep 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 Has anyone observed you stop No 07/01/25 14:20 breathing during sleep? STOP Results Negative 07/01/25 14:20 QUESTION #5 FULL TEXT : Do you snore loudly (louder than talking or can be heard through closed doors)? 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 Specify any problems Hx of Preganancy in last 3 N/A 07/01/25 14:20 Months Nurse Filling Out Transfusion [facility] 07/01/25 14:20 & Questions: Date: 07/01/25 07/01/25 14:20 Time: 14:21 07/01/25 14:20 Patient unable to answer at this time (ie. 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 [employer] Hx Now No 07/01/25 14:20 Gestational Age (in weeks): EDC: Hx Hx Para Hx Section SAB No 07/01/25 14:20 Active Medications Active Medications: Current Medications Generic Name Dose Route Start Last Admin Trade Name Freq PRN Reason Stop Dose Admin Cefazolin Sodium 2 gm/ Sodium 110 mls @ 200 mls/hr 07/08/25 09:45 Chloride IV 07/08/25 10:17 INTRAOP ONE Lactated Ringer's 1,000 mls @ 15 mls/hr 07/08/25 07:45 07/08/25 07:58 IV 15 mls/hr .Q48H RUPESH Administration PFSH Medical History (Updated 07/01/25 @ 14:26 by Pebbles Lim) Wears glasses BPH (benign prostatic hyperplasia) Prostate disease Restless legs Non-smoker History of echocardiogram Cardiology follow-up encounter History of atrial fibrillation History of cardioversion (~09/14/22) Atherosclerotic heart disease of [place] coronary artery without angina pectoris History of left heart catheterization (LHC) (~09/13/22) Valvular heart disease COVID-19 Non-ST elevation (NSTEMI) myocardial infarction Paroxysmal atrial fibrillation with RVR Sepsis Hypoxia Arthritis Home Medications ?Medication ?Instructions ?Recorded ?Last Taken ?Type acetaminophen 500 mg tablet 1,000 mg PO DAILY PRN PAIN AND 04/01/21 07/07/25 18:00 History (Tylenol Extra Strength) FEVER cyanocobalamin (vitamin B-12) 1,000 mcg PO DAILY SUPPLEMENT 04/01/21 09/11/22 History 1,000 mcg tablet glucosamine sulf dipot 1 cap PO DAILY SUPPLEMENT 04/01/21 09/11/22 History chlr,msm,chond 550 mg-C 30 mg-haylee 1 mg capsule (Glucosamine Chondroitin) tamsulosin 0.4 mg capsule 0.4 mg PO DAILY@1730 #30 caps 04/02/21 09/10/22 Rx ascorbic acid (vitamin C) 1,000 mg 1,000 mg PO DAILY vitamin 09/11/22 09/11/22 History tablet (Vitamin C) calcium carbonate 1 tab PO DAILY 05/07/24 Unknown History apixaban 5 mg tablet (Eliquis) 5 mg PO BID #180 tabs 09/27/24 07/04/25 Rx carvedilol 12.5 mg tablet 12.5 mg PO BID #180 tabs 11/02/24 Unknown Rx lisinopril 10 mg tablet 10 mg PO DAILY #90 tabs 11/02/24 Unknown Rx cholecalciferol (vitamin D3) 10 10 mcg PO QDAY 06/24/25 Unknown History mcg (400 unit) capsule Allergy/AdvReac Type Severity Reaction Status Date / Time No Known Allergies Allergy Verified 07/08/25 07:48 Family History Mother Atrial fibrillation Brother Myocardial infarction Surgical History History of carpal tunnel release of both wrists Social History household members: spouse housing: house Smoking Status: Never smoker alcohol intake: never substance use type: does not use caffeine: Yes Type: coffee Number of servings: 1 Review of Systems (Anesthesia) ROS Narrative System reviewed and no additional complaints, except as documented. Physical Exam Const alert and oriented x3 Orientation / Consciousness: awake Resp normal respiratory effort and normal air movement Cardio regular rate and regular rhythm
--- NOTE | 2025-07-08 08:50 | PCM.HP.BLA ---
History and Physical Date of Admission: 07/08/25 Intake Vital Signs 03/25/2508:46 06/24/2508:24 Height 6 ft 6 ft Weight: 241 lb 238 lb BMI 32.6 32.3 BP 128/77 H 95/60 Blood Pressure Location Lt brachial Rt brachial Position Sitting Sitting Respiration 16 17 Pulse 73 60 Pulse Source NIBP Monitor Pulse Oximetry (%) 93 Oxygen Delivery Method room air Intake Visit Reasons: SELF PAY- INGUINAL HERNIA Chief Complaint: self pay-inguinal hernia Is patient in pain?: No Allergies No Known Allergies Allergy (Verified 06/24/25 08:25) Medications ?Medication ?Instructions ?Recorded ?Confirmed ?Type acetaminophen 500 mg tablet 1,000 mg PO DAILY PRN PAIN AND 04/01/21 06/24/25 History (Tylenol Extra Strength) FEVER cyanocobalamin (vitamin B-12) 1,000 mcg PO DAILY SUPPLEMENT 04/01/21 06/24/25 History 1,000 mcg tablet glucosamine sulf dipot 1 cap PO DAILY SUPPLEMENT 04/01/21 06/24/25 History chlr,msm,chond 550 mg-C 30 mg-haylee 1 mg capsule (Glucosamine Chondroitin) tamsulosin 0.4 mg capsule 0.4 mg PO DAILY@1730 #30 caps 04/02/21 06/24/25 Rx ascorbic acid (vitamin C) 1,000 mg 1,000 mg PO DAILY vitamin 09/11/22 06/24/25 History tablet (Vitamin C) calcium carbonate PO 05/07/24 06/24/25 History apixaban 5 mg tablet (Eliquis) 5 mg PO BID #180 tabs 09/27/24 06/24/25 Rx carvedilol 12.5 mg tablet 12.5 mg PO BID #180 tabs 11/02/24 06/24/25 Rx lisinopril 10 mg tablet 10 mg PO DAILY #90 tabs 11/02/24 06/24/25 Rx cholecalciferol (vitamin D3) 10 10 mcg PO QDAY 06/24/25 06/24/25 History mcg (400 unit) capsule Have you fallen in the past year?: No PFSH Medical History History of cardioversion (~09/14/22) Atherosclerotic heart disease of [place] coronary artery without angina pectoris History of left heart catheterization (LHC) (~09/13/22) Valvular heart disease COVID-19 Non-ST elevation (NSTEMI) myocardial infarction Paroxysmal atrial fibrillation with RVR Sepsis Hypoxia Arthritis Surgical History History of carpal tunnel release of both wrists Family History Mother Atrial fibrillationBrother Myocardial infarction Social History household members: spouse housing: house Smoking Status: Never smoker alcohol intake: never substance use type: does not use caffeine: Yes Type: coffee Number of servings: 1 HPI HPI HPI: Patient is a 70-year-old male here with right inguinal hernia. He says has been there for 4 to 5 years. He says that 2 weeks ago he had a coughing spell and he feels like he got larger. He reports that it is especially painful and there is gas in the bowel that is stuck in the hernia. ROS General General: No weight change, appetite, fatigue, colon cancer, breast cancer or weakness HEENT HEENT: No difficulty swallowing, eye injury, eye surgery, swollen glands or hoarseness Endo Endocrine: No thyroid disease, diabetes mellitus, thyroid cancer, Hair loss, heat intolerance or cold intolerance Skin Skin: No rash or changing moles Musc Musculoskeletal: Yes arthritis; No back problems, rheumatoid arthritis, gout or joint pain Cardio Cardiovascular: Yes atrial fibrillation; No murmur, pacemaker, heart disease, high blood pressure, heart attack, heart stent, palpitations, shortness of breath with exertion or chest pain Psych Psychiatric: No depression, anxiety or hearing voices Resp Respiratory: No shortness of breath, No sleep apnea, No cough, No COPD, No asthma, No emphysema and No wheezing Gastro Gastrointestinal: No abdominal pain, No nausea or vomiting, No diarrhea, No constipation, No blood in stool, No acid reflux, No hemorrhoids, No ulcers, No gallbladder problem and No black,tarry stools Ravinder Hematologic: Yes blood thinners, No blood disorders, No bleeding, No anemia and No blood clots Additional Details: Eliquis Neuro Neurologic: No system reviewed and no additional complaints, except as documented, No as per HPI, No abnormal gait, No abnormal hearing, No abnormal movements, No abnormal speech, No behavioral changes, No burning sensations, No confusion, No convulsions, No disequilibrium, No dizziness, No localized weakness, No frequent falls, No headache(s), No lack of coordination, No loss of vision, No memory loss, No numbness, No other visual disturbances, No radicular pain, No restless legs, No sensory deficit, No syncope, No tingling, No tremor(s), No weakness and No other Exam Const General: cooperative Orientation: alert and oriented x3 HENMT Head: normal to inspection Neck Neck: normal visual inspection and full ROM Chest Chest palpation & inspection: normal inspection of the chest Resp Effort & Inspection: normal respiratory effort Auscultation: clear to auscultation bilaterally Cardio Rate: regular rate Rhythm: regular rhythm GI Inspection: non-distended Palpation: soft and nontender Skin General: no rashes or lesions noted Neuro General: patient alert and patient oriented x3 Extrem General: full ROM Psych Appearance: grossly normal Mental Status: mental status grossly normal Assessment and Plan Assessment and Plan (1) Inguinal hernia: Status: Acute Plan: The patient has a right inguinal hernia. I discussed right inguinal hernia repair with mesh. I discussed robotic assisted laparoscopic right inguinal hernia repair with mesh. I discussed the risks including but not limited to bleeding, infection, injury other organs such as the bladder, blood supply to the testicle, bowel. Patient understands the risks and is willing to proceed. Franc Brush MD Pager: [facility] [address] [place] [address], [address] [place] [phone] Office: I have examined the patient and the H&P has been reviewed. There are no clinical changes since date of exam.
[2025-07-08] MEDS: Cefazolin 1 GM/5 ML Vial 2 GM IV (09:36)
[2025-07-08] MEDS: Lidocaine 1% (5 ml sdv) 5 ML Vial IV (09:44)
--- NOTE | 2025-07-08 10:36 | OP.PCM_ITS ---
Operative Report (Standard) Operative Information Date of Procedure: 07/08/25 Pre-Operative Diagnosis: Right inguinal hernia Post-Operative Diagnosis: Right inguinal hernia Surgery/Procedure Performed: Robotic assisted laparoscopic right inguinal hernia repair with mesh soil field technician: Yes Hand Packer: Elicia Menon Tasks completed by assistant professor of music: Opening & closing and Retracting Type of Anesthesia: General/Regional RN Documented Start/Stop Times: Operation Date: 07/08/25 09:15 Case Time Into Pre-Op 07/08/25 07:30 Out of Pre-Op 07/08/25 09:28 Anesthesia Start 07/08/25 09:36 Into Room 07/08/25 09:36 Procedure Start 07/08/25 09:55 Procedure Start Time: 09:55 Procedure Stop Time: 10:40 Select all DRAINS/GRAFTS/IMPLANTS that apply: Implanted device Implanted device details: ProGrip mesh Estimated Blood Loss: 5 Specimen collected: No Description of surgery: Patient was brought back to the operating room and general anesthesia was induced. The abdomen was prepped and draped in usual sterile fashion. A midline incision was made superior to the umbilicus and the fascia was grasped and elevated and a Veress needle was placed into the abdomen. Drop test was performed and the abdomen is insufflated to 15 mmHg. The Veress needle was removed and a port was placed. The camera is placed into the abdomen and in spected for injuries from entry and there were none. Patient was placed in steep Trendelenburg position and an 8 mm port was placed in the right and left lateral sidewall and the robot was docked. The patient had an indirect inguinal hernia on the right. The peritoneum was incised using lecture cautery scissors in the right lower quadrant and then the preperitoneal space was dissected free down to the hernia sac. The hernia sac was reduced and dissected free of its adhesions. Next a piece of ProGrip mesh was unrolled over the right inguinal hernia and then the peritoneum was reapproximated using a running 3 oh V-Loc suture. The peritoneum completely cover the mesh at the end of the procedure. Next the air was allowed to desufflate from the abdomen and the ports were removed. The incisions were injected with local anesthetic and closed with interrupted 4-0 Monocryl sutures. Steri-Strips and bandages were applied. Scrotum was checked at the end of the case and contained both testicles. Patient was taken to PACU in stable condition. Surgical Findings: Indirect inguinal hernia Complications Complications: No Admit VTE Documentation VTE Mechan Device Prophylaxis: SCD's
--- NOTE | 2025-07-08 10:38 | DCINST_ITS ---
Discharge Instructions Procedure Hernia Diet Discharge Diet: Light diet - advance as tolerated Activity Discharge Activity: May Not Drive (for 2-3 days or while taking narcotic pain meds.) and May Shower (with the bandage in place 1-2 days after surgery.) Lifting Restrictions: 20 pounds for 4 weeks. Additional Activity Instructions:: Climbing stairs is fine, walking is encouraged. Sitting in bed may be uncomfortable. Sitting up using your lateral muscles (sitting up sideways) is usually more comfortable. Do not drive, work heavy equipment of sign legal documents for 24 hours. If your hernia repair was an ingunial repair, you may have scrotal swelling, an ice pack and/or athletic support can provide more comfort. Pain medications may cause nausea, you should typically eat light foods as you take your pain medications. Pain medications may also cause constipation. If you have difficulty with this, discuss with your doctor. Alternate ibuprofen and Tylenol for pain control, oxycodone for breakthrough pain. Resume blood thinners on Tuesday Dressing / Incision Call your doctor if your incision/area has: Continuous Slow Oozing, Sudden Increased Bleeding, Increased Pain/ Swelling, Increased Redness and Foul Smelling Discharge Call your doctor if you observe: Fever of 101 or Higher Suture Line Care: Avoid Pulling/Pushing and Avoid Pinching/Bending Remove Dressing in: 2 days (Remove clear bandages in 2 days, remove Steri-Strips in 7 to 10 days.) Cleanse incision/area with: Soap & Water Follow Up Care Please Follow Up With: Franc Brush MD When: Please call to schedule 2 week follow up appointment. [phone] Test Results: Test results from this visit will be discussed in further detail at your follow- up appointment, if applicable. Discharge Plan Admission Attending Provider: Franc Brush Primary Care Provider: Daniele Garcia Instructions Print Language: Mongolian Discharge Orders/Prescriptions Prescriptions: New oxycodone 5 mg Tablet 5 - 10 mg PO Q4H PRN PRN (Reason: Pain Score 4-10) 5 Days Qty: 10 0RF No Action Eliquis 5 mg tablet 5 mg PO BID Qty: 180 4RF calcium carbonate 1 tab PO DAILY cholecalciferol (vitamin D3) 10 mcg (400 unit) capsule 10 mcg PO QDAY cyanocobalamin (vitamin B-12) 1,000 mcg Tablet 1,000 mcg PO DAILY acetaminophen [Tylenol Extra Strength] 500 mg Tablet 1,000 mg PO DAILY PRN (Reason: PAIN AND FEVER) Glucosamine Chondroitin 550-30-1 mg Capsule 1 cap PO DAILY tamsulosin 0.4 mg Capsule 0.4 mg PO DAILY@1730 Qty: 30 1RF ascorbic acid (vitamin C) [Vitamin C] 1,000 mg Tablet 1,000 mg PO DAILY carvedilol 12.5 mg tablet 12.5 mg PO BID Qty: 180 3RF lisinopril 10 mg tablet 10 mg PO DAILY Qty: 90 3RF Other Ambulatory Orders: 12 Lead EKG (Routine) Location: None Selected Ordered By: Dr. Garcia Reese Referrals / Follow Up: Daniele Garcia DO [Primary Care Provider] - Disposition Disposition (needs filled in before D/C Order can be placed): Home, Self Care
[2025-07-08] MEDS: fentaNYL 100 MCG/2 ML Ampul IV (10:43)
== END 2025-07-08 12:40 | disposition home or self-care (01) ==
LOC: SDC 07:31 → AC 07:31
PROVIDERS: Anesthesiology; PCP Family Medicine; Referring Provider Surgery; Visit Provider Surgery
PROC: (CPT 49650; principal; 2025-07-08 08:55)
DX: K40.90 Unilateral inguinal hernia, without obstruction or gangrene, not specified as recurrent (principal); I48.0 Paroxysmal atrial fibrillation; I10 Essential (primary) hypertension; I25.2 Old myocardial infarction; I25.10 Atherosclerotic heart disease of native coronary artery without angina pectoris; N40.0 Benign prostatic hyperplasia without lower urinary tract symptoms; M19.90 Unspecified osteoarthritis, unspecified site; Z79.01 Long term (current) use of anticoagulants; Z79.899 Other long term (current) drug therapy
CPT/HCPCS: 49650; S2900; 00750; 36415; 80048; 85027; 93005; C1781; J2405